=== PATIENT | female | born 1950 | race African-American/Black ===

== ENCOUNTER 2019-09-27 11:54 | Inpatient (IN) ==
[2019-09-27] MEDS ORDERED: DUONEB (A & A) INH ONE (12:12)
[2019-09-27] MEDS: DEMEROL IV ONE ×2 (12:14→13:08)
[2019-09-27] MEDS ORDERED: NS 1,000 ML IV ONE ×3 (12:15→14:37)
--- NOTE | 2019-09-27 13:01 | Diag Imaging Result Doc PS360 ---
EXAM: CHEST-1 VIEW HISTORY: POSSIBLE SEPSIS TECHNIQUE: Lateral chest single view COMPARISON: None. FINDINGS: The lungs are well expanded. No pleural effusions. No other abnormality identified. IMPRESSION: Negative exam. Electronically signed by Franky Yusuf 09/27/2019 12:59 PM
--- NOTE | 2019-09-27 13:03 | Diag Imaging Result Doc PS360 ---
EXAM: FLAT/UPRIGHT ABD/1 VIEW CHEST HISTORY: lower abd pain TECHNIQUE: Flat and upright with chest, four views COMPARISON: 09/14/2016 FINDINGS: The lungs are well expanded. No cardiomegaly. Mild increased interstitial markings in the left base. No free air beneath the diaphragm. No bowel obstruction although there is stool throughout the colon. No organomegaly. Pelvic calcifications within a known large uterine fibroid documented on prior CT. Mild scoliosis. Moderate atherosclerosis. IMPRESSION: Constipation Atelectasis versus a tiny left basilar infiltrate Electronically signed by Franky Yusuf 09/27/2019 1:01 PM
[2019-09-27 13:22] LABS: BASO# 0.03 X1000 (0.0-0.2); BASO% 0.2 % (0.0-0.8); HEMATOCRIT 47.7 % (37.0-47.0); HEMOGLOBIN 14.9 g/dL (12.0-16.0); IMM GRAN# 0.07 X1000 (0.0-0.04); IMM GRAN% 0.4 % (0.0-0.5); LYMPH# 2.25 X1000 (1.2-3.4); LYMPH% 11.4 % (20.5-51.1); MCH 27.5 PG (27-31); MCHC 31.2 g/dL (33-37); MONO% 13.1 % (1.7-9.3); MPV 10.1 FL (7.4-10.4); NEUT# 14.84 X1000 (1.4-6.5); NEUT% 74.9 % (42.2-75.2); PLT 463 X1000 (130-400); RBC 5.42 XMIL (4.2-5.4); RDW 14.9 % (11.5-14.5); WBC 19.79 X1000 (4.8-10.8)
[2019-09-27 13:26] LABS: INR 1.15; PROTIME 14.9 Seconds (11.0-16.0)
[2019-09-27 13:27] LABS: PTT 32.7 Seconds (22.3-41.8)
[2019-09-27 13:45] LABS: ALB/GLOB RATIO 1.3; ALBUMIN 3.6 g/dL (3.5-5.0); CALCIUM 9.2 mg/dL (8.8-10.2); CREATININE 3.5 mg/dL (0.5-0.9); POTASSIUM 5.1 mmol/L (3.5-5.1); TOTAL BILIRUBIN 0.56 mg/dL (0.20-1.00); TOTAL PROTEIN 6.3 g/dL (6.3-8.3)
[2019-09-27] MEDS ORDERED: PHENERGAN IV ONE (13:46)
[2019-09-27] MEDS ORDERED: OFIRMEV 1000 MG/ISOTONIC SOLN 1,000 MG/100 ML BOTTLE IV PRN (13:46)
[2019-09-27] MEDS ORDERED: SODIUM CHLORIDE 0.9% INJ ONE (13:46)
[2019-09-27] MEDS ORDERED: ZOSYN 3.375 GM in NS 50 ML IV ONE (13:57)
--- NOTE | 2019-09-27 15:11 | Diag Imaging Result Doc PS360 ---
EXAM: CT ABDOMEN/PELVIS W/O CONTRAST HISTORY: abdominal pain TECHNIQUE: CT abdomen and pelvis without contrast COMPARISON: None 02/24/2017 FINDINGS: There is a tiny left pleural effusion. Moderate sized hiatal hernia. No calcified gallstones. There are several hepatic cysts. No splenomegaly. No inflammation about the pancreas. Normal adrenal glands. No renal stones or hydronephrosis. Moderate to prominent atherosclerosis. No aortic aneurysm. [id number] amount of abdominal and pelvic ascites. There is a large partially calcified uterine fibroid which was present on the prior exam. This measures approximately 7 x 8 x 9 cm. No bowel obstruction. There are scattered colonic diverticula. There is a fat filled midline abdominal hernia just above the umbilicus. The urinary bladder is not distended. IMPRESSION: 1.Interval development of a small to moderate amount of abdominal ascites 2.Moderate sized hiatal hernia 3.Hepatic cysts 4.Colonic diverticulosis 5.Moderate to prominent atherosclerosis 6.Large calcified uterine fibroid 7.Fat filled anterior abdominal wall hernia just above the umbilicus This exam was performed using automated exposure control, adjustment of mA or kV according to patient size, and/or use of iterative reconstruction technique. Electronically signed by Franky Yusuf 09/27/2019 3:08 PM
--- NOTE | 2019-09-27 15:24 | PROVIDER DOCUMENTATION ---
This chart was entered by Cari Daigle Scribe, acting as scribe for Sharif Ramos DO. HPI-Abdominal Pain/GI Problem - General Stated Complaint: ABD PAIN Time Seen by Provider: 09/27/19 12:04 Source: patient, family (son), EMS ([facility] brought from Walk-in clinic in [place]) Allergies/Adverse Reactions: Patient Allergies Allergy/AdvReac Type Severity Reaction Status Date / Time No Known Allergies Allergy Verified 09/27/19 12:50 Home Medications: Home Medication List Medication Instructions Recorded Confirmed Last Taken Type Amlodipine [Norvasc] 10 mg PO DAILY 11/25/12 09/27/19 09/27/19 History Metformin [Glucophage] 500 mg PO BID 09/11/14 09/27/19 09/27/19 History Albuterol Sulfate Inhaler 2 puff INH [id number] #0 inhaler 09/15/14 09/27/19 Rx [Ventolin Hfa] Lisinopril/Hydrochlorothiazide 1 each PO DAILY 09/14/16 09/27/19 09/27/19 History [Lisinopril-Hctz 20-25 mg Tab] Tiotropium [place] Inhaler 18 mcg INHALATION 09/27/19 09/27/19 History [Spiriva] - History of Present Illness-ABD Nature of Presenting Problems: Patient went to a walk in clinic for lower left abdominal pain. She states she has had constipation and took some laxatives, but continued to have pain. She has just finished antibiotics and steroids for pneumonia, but still has sob. Abdominal Pain Onset Location: reports: LLQ, periumbilical Pain Radiation: reports: no radiation Quality of Pain: reports: aching Severity in ED: reports: mild Onset/Duration: reports: abrupt, 2 days ago Timing: reports: still present, getting worse Activities at Onset: reports: light activity Modifying Factors: improves with: movement (makes pain and SOB worsen). worse with: other medication (laxitives did not work and pt says caused bleeding) Associated Symptoms: reports: constipation (present), diarrhea (1st), shortness of breath. denies: syncope Last BM: 2 days ago Rectal Bleeding: reports: blood mixed with stool Review of Systems - Adult - REVIEW OF SYSTEMS - ADULT Constitutional: reports: no symptoms reported Eyes: reports: no symptoms reported Ears, Nose, Mouth & Throat: reports: no symptoms reported Cardiovascular: denies: chest pain, syncope Respiratory: reports: shortness of breath, wheezing Gastrointestinal: reports: abdominal pain (LLQ), constipation, diarrhea Genitourinary: reports: no symptoms reported Musculoskeletal: reports: no symptoms reported Integumentary: reports: no symptoms reported Neurological: reports: see HPI. denies: dizziness/vertigo, syncope Psychiatric: reports: no symptoms reported Endocrine: reports: no symptoms reported Hematologic/Lymphatic: reports: no symptoms reported Allergic/Immunologic: reports: no symptoms reported All Other Systems: Reviewed and Negative Past History - Adult - PAST MEDICAL HISTORY-ADULT Review of Records: reports: Old Records Reviewed, Nursing Assessment Review, Medications Reviewed, Social history reviewed & non-contributory. Major Childhood Illnesses: reports: denies history Cardiovascular: reports: CHF, HTN Respiratory: reports: COPD Gastrointestinal: reports: denies history Genitourinary: reports: denies history Musculoskeletal: reports: denies history Neurological: reports: denies history, other (Neuropothy) Endocrine/Immune: reports: Diabetes Other Conditions: reports: denies history - PRIOR SURGERIES/PROCEDURES Surgical/Procedure History: reports: appendectomy, BTL, other (cyst removal ) - IMMUNIZATION STATUS Childhood Immunizations: See Nurse Assessment Flu Vaccine: See Nurse Assessment - FAMILY HISTORY Family History: reviewed, not pertinent - SOCIAL HISTORY Smoking: cigarettes, less than 1 pack/day Provider spent 3-5 mins advising pt. on dangers of tobacco.: Discussed manners to quit use, and f/u contacts for add'l counseling. Substance Use: denies Living Situation: alone Physical Exam-General - PHYSICAL EXAM-ADULT Initial Vital Signs Reviewed: Yes (HR 96, Resp 26, O2 94 on oxygen) - CONSTITUTIONAL General Appearance: alert, mild distress, obese - EYES Eyes: PERRL/EOMI - HEAD, EARS, NOSE, MOUTH & THROAT HENMT: moist mucous membranes - NECK Neck: full range of motion - RESPIRATORY Respiratory: wheezing, increased rate - CARDIOVASCULAR Cardiovascular: no edema, no JVD, tachycardia - GASTROINTESTINAL (ABDOMEN) Abdominal Exam: tenderness, other (lapoma) - MUSCULOSKELETAL Back Exam: no CVA tenderness, no vertebral tenderness Extremity: non-tender, normal gait - SKIN Integumentary: normal color, normal turgor, warm/dry - PSYCHIATRIC Psych/Mental Status: normal mood/affect, normal thought content, normal thought process, oriented x 3 Progress - PLAN OF CARE/RESULTS Result Diagrams: 09/27/19 13:00 09/27/19 13:00 - XRAY 1 XRAY Study: Chest Impression: See EMR Report (EXAM: CHEST-1 VIEW HISTORY: POSSIBLE SEPSIS TECHNIQUE: Lateral chest single view COMPARISON: None. FINDINGS: The lungs are well expanded. No pleural effusions. No other abnormality identified. IMPRESSION: Negative exam. Electronically signed by Franky Yusuf 12:59 PM 09/27/19 1259 Interpreting Physician: Franky Yusuf MD Dictated Date/Time: 09/27/19 1258 cc: Sharif Ramos DO; None,PCP) 2 XRAY Study: Abdomen Impression: See EMR Report (EXAM: FLAT/UPRIGHT ABD/1 VIEW CHEST HISTORY: lower abd pain TECHNIQUE: Flat and upright with chest, four views COMPARISON: 09/14/2016 FINDINGS: The lungs are well expanded. No cardiomegaly. Mild increased interstitial markings in the left base. No free air beneath the diaphragm. No bowel obstruction although there is stool throughout the colon. No organomegaly. Pelvic calcifications within a known large uterine fibroid docu mented on prior CT. Mild scoliosis. Moderate atherosclerosis. IMPRESSION: Constipation Atelectasis versus a tiny left basilar infiltrate Electronically signed by Franky Yusuf 09/27/2019 1:01 PM 09/27/19 1301 Interpreting Physician: Franky Yusuf MD Dictated Date/Time: 09/27/19 1259 cc: Sharif Ramos DO; None,PCP) - CONSULTS/PCP/HOSPITALIST Notification #1 *Consult/PCP/Hospitalist*: [facility] Time Discussed: 15:21 (admit to Dr Gregory) Consult Disposition: Will see in ED Departure - Departure Date of Disposition Decision: 09/27/19 Time of Disposition Decision: 15:23 DIAGNOSIS: COPD exacerbation, Sepsis associated hypotension Acute renal failure Qualifiers: Acute renal failure type: unspecified Qualified Code(s): N17.9 - Acute kidney failure, unspecified Disposition: ADMITTED INPATIENT 09 Certified Medical Emergency: Emergent Condition: Fair Referrals and Follow-Ups: None,PCP [Primary Care Provider] - - Critical Care Note This patient required my direct & personal management of CC.: Yes Total Time (mins): 72 Critical Care Statement: This patient required my direct personal management to treat or rule out processes, the absence of which, could potentiallly result in sudden, clinically significant life or limb threatening deterioration. Attestation - Physician/ BRITNEY Attestation Patient care was provided by Advanced Practice Provider:: No The physician spent face to face time with patient:: Yes Advanced Practice Provider documentation review:: Supervising physician onsite and consulted in the evaluation and care of this patient. The physician did have a face to face encounter with the patient. This chart was documented by the indicated scribe, (Cari Daigle, [place]) and accurately reflects the services I performed and decisions made by me, Sharif Ramos DO, as attested by the provider's signature.
[2019-09-27 16:16] LABS: ALLEN TEST NO; BE -5.2 mmoll (-3.0-3.0); BLOOD TYPE ARTERIAL; HCO3-(ACT) 20.8 mmoll (20.0-26.0); METHB 0.9 % (0.0-1.5); O2(CT) 17.8 mL/dL (15.0-23.0); O2HB 93.6 % (95.0-99.0); PCO2(98.6) 40 mmHg (35-45); PO2(98.6) 83 mmHg (60-100); SAMPLE BLOOD; SAO2 97.9 % (95.0-100.0); THB 13.5 g/dL (11.5-17.4); pH(98.6) 7.32 (7.35-7.45)
[2019-09-27 16:16] LABS: AMYLASE 15 U/L (20-200); LIPASE 4 U/L (13-60)
[2019-09-27 16:17] LABS: MODALITY CANNULA
[2019-09-27] MEDS ORDERED: NS 1,000 ML IV SCH (17:40)
[2019-09-27] MEDS ORDERED: TYLENOL PO PRN (17:40)
[2019-09-27] MEDS: DUONEB (A & A) INH SCH ×3 (18:00→23:03)
[2019-09-27] MEDS: ZYVOX 600 MG/D5W 600 MG/300 ML IVPB IV SCH (18:01)
[2019-09-27 18:24] LABS: URINE SOURCE CLEAN CATCH
[2019-09-27 18:35] LABS: BILIRUBIN URINE MODERATE (NEGATIVE); COLOR YELLOW; GLUCOSE URINE NEGATIVE (NEGATIVE); TURBIDITY URINE HAZY (CLEAR); UR EPITHELIAL CELLS >10 /HPF (<10); URINE BACTERIA 2+ /HPF; URINE WBC TNTC /HPF (<10)
[2019-09-27 18:36] LABS: BLOOD URINE TRACE (NEGATIVE); KETONE URINE NEGATIVE (NEGATIVE); LEUKOCYTES URINE SMALL (NEGATIVE); NITRITE URINE NEGATIVE (NEGATIVE); PH URINE 5.5; PROTEIN URINE 100 mg/dL (NEGATIVE); UROBILINOGEN URINE NORMAL (NORMAL)
[2019-09-27 18:38] LABS: UR CREAT RANDOM 284.3 mg/dL (11-20)
--- NOTE | 2019-09-27 19:35 | HISTORY AND PHYSICAL ---
PRIMARY CARE PHYSICIAN: Dr. Hernandez. CHIEF COMPLAINT: Left lower quadrant abdominal pain with constipation over the past 3 days. Also noted shortness of breath, wheezing, and weakness. HISTORY OF PRESENTING ILLNESS: This is a 68-year-old female who presents to [facility] via EMS after she was seen in a walk-in clinic for left lower quadrant abdominal pain. States that she had been having some constipation and took some laxatives then she stopped taking the laxatives and began again having constipation with no bowel movement in the last 3 days. States she just finished antibiotics and steroids for a pneumonia, still has a nonproductive cough, shortness of breath and wheezing. Her workup showed a blood pressure on arrival of 95/50 that dropped about an hour after arriving to 79/44. She received 3 L of normal saline bolus and her blood pressure is now up to 117/57. Her laboratory data showed a white blood cell count of 19.79, BUN was 42 with a creatinine of 3.5. Her last documented creatinine that we have on file is from 2013 in September and it was 0.8. Her plasma lactate is 3.1. We did an abdomen x-ray that showed constipation and atelectasis versus a tiny left basilar infiltrate. We did a chest x-ray that showed a negative exam. We did an abdomen and pelvic CT that showed interval development of small to moderate amount of abdominal ascites, a moderate-sized hiatal hernia, a fat filled anterior abdominal wall hernia just above the umbilicus and a large calcified uterine fibroid. So she will be admitted to our PVC unit for further evaluation and treatment. PAST MEDICAL HISTORY: CHF, hypertension, COPD, hepatitis C, diabetes type 2 and neuropathy. PAST SURGICAL HISTORY: Of an appendectomy, bilateral tubal ligation. FAMILY HISTORY: Reviewed and noncontributory. SOCIAL HISTORY: She currently lives with family, smokes a half a pack of cigarettes a day and has done so for approximately 40+ years. Denies any alcohol or illicit drug use. ALLERGIES: She has no known drug allergies. HOME MEDICATIONS: We will obtain a current list, reconcile, review and restart as appropriate. We will hold any of her antihypertensive and diuretics at this time. LABORATORY DATA: Showed a white blood cell count of 19.79, hemoglobin 14.9, hematocrit 47.7, platelets 463,000, PT and INR of 14.9 and 1.15. Sodium of 138, potassium 5.1, chloride 95, CO2 20, BUN of 42, creatinine 3.5, glucose 136. Cardiac enzyme was negative. Plasma lactate of 3.1. Abdomen x-ray showed constipation and atelectasis versus a tiny left basilar infiltrate. Chest x- ray showed a negative exam and the abdomen and pelvic CT showed interval development of a small to moderate sized abdominal ascites, moderate size hiatal hernia, hepatic cyst, colonic diverticulosis, moderate to prominent atherosclerosis, large calcified uterine fibroid and a fat filled anterior abdominal wall hernia just above the umbilicus. REVIEW OF SYSTEMS: She denied any fever, chills, blurred vision, dizziness. She has had shortness of breath, wheezing, nonproductive cough, left lower quadrant abdominal pain, constipation. Denied any diarrhea, burning or hurting with urination. She did report that she had some rectal bleeding several days ago that lasted 1 day and then resolved. No further bleeding noted at this time. PHYSICAL EXAMINATION: On arrival she had a temperature of 97.9 degrees, pulse 97, respirations 32, blood pressure 95/50, saturating 93% on room air. Approximately an hour later her blood pressure did drop to 79/44. After fluid resuscitation she is up to 117/57 saturating 94% on 2 L via nasal cannula. GENERAL: This is a 68-year-old female who is sitting in the bed and answers questions appropriately. HEENT: Normocephalic, atraumatic. Normal ENT inspection. Oropharynx and nares are clear. Pupils are equal, round, and reactive to light and accommodation. Extraocular movements are intact. NECK: Normal inspection, normal range of motion. LUNGS: With wheezing throughout entire posterior lung marques and tachypneic. Equal lung expansion, chest wall movement noted. O2 via nasal cannula currently in use. HEART: Rate regular rate and rhythm. No murmurs, rubs, or gallops. ABDOMEN: Soft. There is tenderness to palpation throughout entire abdominal quadrants. It is worse on the left upper and lower. Bowel sounds are present x4 quadrants. MUSCULOSKELETAL: She had 5/5 strength x4 extremities. NEUROLOGICAL: Cranial nerves 2-12 appear grossly intact. ASSESSMENT: 1. Sepsis. 2. Left lower lobe pneumonia. 3. Leukocytosis. 4. Hypotension. 5. Acute kidney injury. 6. Constipation. 7. Tobacco abuse. OUR PLAN: She will be admitted to the PVC unit placed on telemetry, placed on a diabetic diet. She will be n.p.o. after midnight for a complete abdominal ultrasound in the a.m., will place her on Zyvox 600 mg IV q.12, Zosyn 2.25 g IV q.6, lactulose 30 mL b.i.d., placed on telemetry. Will place SCDs for DVT prophylaxis. Will give her normal saline at 50 mL an hour and go gently since she has had 3 L of fluid in the emergency room and has a history of congestive heart failure. We will recheck a CBC, BMP in the a.m. We will check a hepatitis profile, do serial lactates, check a urine sodium, urine nitrogen, urine creatinine and eos urine smear. We are going to do a abdominal paracentesis in the a.m. Further orders after seen by attending. Dictated by CHINA Parish for Mark Barnes MD cc: CHINA Parish MD Dr. Powell
[2019-09-27] MEDS: ZOSYN 2.25 GM in NS 50 ML IV SCH ×2 (20:34→21:11)
[2019-09-27] MEDS: ZOFRAN IV PRN (20:35)
[2019-09-27] MEDS: LACTULOSE PO SCH (20:35)
[2019-09-27] MEDS: VENTOLIN HFA INH SCH (21:18)
--- NOTE | 2019-09-28 02:03 | HISTORY AND PHYSICAL ---
ADDENDUM: I have seen and examined Ms. Vegas in the emergency room today. Ms. Vegas presented to the ER today because of abdominal pain which has been going on for the past 3 days. Ms. Vegas has recently been treated for pneumonia about a week ago with p.o. antibiotics, namely doxycycline, documented on her chart. Ms. Vegas is also hypertensive and takes lisinopril/hydrochlorothiazide. She is also on metformin for glucose control. Upon presentation she was found to be remarkably hypotensive, with a blood pressure of 95/50. It went down to about 79/44 at one point. She has been given a total of 3 L of IV fluids. Blood pressures have improved. PHYSICAL EXAMINATION: HEENT: On current physical exam, her mucous membranes look slightly dry. NECK: Supple. Questionable JVD. CHEST: Air entry is bilaterally reduced. There is some wheezing and crackles in the left posterior lung field. ABDOMEN: Soft, distended. There is mild tenderness on superficial palpation, with questionable peritoneal reaction. There is a supraumbilical incisional hernia which is not tender. Bowel sounds are present but remarkably hypoactive. EXTREMITIES: No pedal edema. CENTRAL NERVOUS SYSTEM: The patient is awake, alert and oriented. LABORATORY DATA: Also reviewed. Her WBC is 19.73. Her bicarbonate is 20 with a gap of 23, BUN is 42, creatinine is 3.5. The patient's plasma lactate is 3.1. DIAGNOSTIC DATA: A CAT scan of the abdomen and pelvis shows interval development of small to moderate amount of abdominal ascites; moderate size hiatal hernia; colonic diverticulosis; moderate to prominent atherosclerosis; there is a fat-filled abdominal wall hernia just above the umbilicus. ASSESSMENT AND PLAN: 1. Abdominal pain with mild peritoneal reaction. CAT scan shows ascites. This is concerning for spontaneous bacterial peritonitis. The patient has been started on antibiotics. 2. Hypotension, presumably septic shock. The patient was resuscitated with 3 L. Blood pressure has improved. She has not needed any pressors; however, I think other factors could be contributing to her low blood pressure on admission, including the fact that she has been on blood pressure medications as well as diuretics, all of which could potentially drop her blood pressure in the context of an infection. 3. Acute kidney injury. We think this is multifactorial. The patient was on BARB inhibitors, diuretics. She looks quite dehydrated and she is septic. We are going to continue with fluid resuscitation, recheck on her labs tomorrow morning. We will get urinalysis as well and go from there. 4. We will get a Quevedo catheter inserted for straight output documentation. 5. Recently treated for pneumonia. The patient continues to have some wheezing. CAT scan shows left lower lobe infiltrate/fluid. We are still going to put her on antibiotics. 6. History of chronic obstructive pulmonary disease, questionably in mild exacerbation. 7. Lactic acidosis, most likely from hypoperfusion. We will continue with fluid resuscitation. 8. Remote history of hepatitis C. We are going to repeat this. We will also get an ultrasound of the abdomen and the kidneys. First of all, we are going to get an ultrasound of the abdomen to check if the patient is cirrhotic from imaging standpoint. We will also get a renal ultrasound for her kidney failure. So for now, Ms. Vegas is going to be on intravenous Zosyn, renally dosed, and Zyvox for possible pneumonia. We are going to continue with gentle intravenous fluids, check on her urine analysis, get a Quevedo catheter in place, and order diagnostic paracentesis for tomorrow morning. Depending on the clinical course, we will get other subspecialties to evaluate Ms. Vegas. Ms. Vegas's blood pressure medications and metformin will be withheld for now. We will get Nephrology to see Ms. Vegas because of the fact that she has acute renal failure and she also was on metformin. Please refer to the details of the history and physical that has been dictated by the nurse practitioner in the chart. Critical time spent is 1 hour. cc: Mark Barnes MD
[2019-09-28] MEDS: DUONEB (A & A) INH SCH ×6 (03:29→23:14)
[2019-09-28] MEDS: VENTOLIN HFA INH SCH ×3 (03:29→23:14)
[2019-09-28] MEDS: ZOSYN 2.25 GM in NS 50 ML IV SCH ×4 (04:58→21:25)
[2019-09-28] MEDS: ZYVOX 600 MG/D5W 600 MG/300 ML IVPB IV SCH ×2 (05:39→17:11)
[2019-09-28 06:22] LABS: BASO# 0.02 X1000 (0.0-0.2); BASO% 0.1 % (0.0-0.8); EOS# 0.01 X1000 (0.0-0.7); EOS% 0.1 % (0.0-10.0); HEMATOCRIT 43.1 % (37.0-47.0); HEMOGLOBIN 13.5 g/dL (12.0-16.0); IMM GRAN# 0.03 X1000 (0.0-0.04); IMM GRAN% 0.2 % (0.0-0.5); LYMPH# 1.03 X1000 (1.2-3.4); MCH 28.2 PG (27-31); MCHC 31.3 g/dL (33-37); MONO# 2.21 X1000 (0.11-0.59); MPV 9.8 FL (7.4-10.4); NEUT# 11.41 X1000 (1.4-6.5); NEUT% 77.6 % (42.2-75.2); PLT 363 X1000 (130-400); RBC 4.79 XMIL (4.2-5.4); RDW 15.1 % (11.5-14.5); WBC 14.71 X1000 (4.8-10.8)
[2019-09-28 06:59] LABS: CALCIUM 8.9 mg/dL (8.8-10.2); POTASSIUM 4.5 mmol/L (3.5-5.1)
[2019-09-28] MEDS: NS 1,000 ML IV SCH ×2 (08:01→17:11)
[2019-09-28] MEDS: LACTULOSE PO SCH ×2 (08:02→21:31)
--- NOTE | 2019-09-28 10:44 | Diag Imaging Result Doc PS360 ---
EXAM: US ABDOMEN-COMPLETE INDICATION: Ascites COMPARISON: None. FINDINGS: There are multiple shadowing stones in the gallbladder lumen. No gallbladder wall thickening is identified. The common bile duct is normal in diameter. Sonographic Spears's sign was reported to be negative. There is a moderate to large amount of ascites. There is a 3.6 cm cyst in the right hepatic lobe with a thin internal septation. The liver echotexture is unremarkable, otherwise. No solid hepatic masses are identified. Portal venous flow is hepatopetal. The pancreas is obscured due to body habitus and the ascites. The aorta and IVC are also obscured. The spleen is unremarkable. The kidneys are grossly unremarkable. IMPRESSION: 1.Ascites. 2.Cholelithiasis. 3.Right hepatic lobe cyst with a thin internal septation. Electronically signed by Christopher Ocampo 09/28/2019 10:41 AM
--- NOTE | 2019-09-28 15:12 | NEPHROLOGY CONSULTATION ---
DATE: 09/28/2019 REASON FOR ADMISSION: Abdominal pain, constipation, hypotension, sepsis. REASON FOR CONSULTATION: Acute kidney injury. CONSULTING PHYSICIAN: Dr. Barnes. HISTORY OF PRESENT ILLNESS: This is a 68-year-old female with a past medical history of diabetes and hypertension, with no known kidney disease, who came into the emergency room on day of admission secondary to abdominal pain, constipation, hypotension, and an elevated white count. She normally sees [facility] for her routine office visit. She went to see them because of her current complaints, and they noted that she has significant hypotension, and was brought to the emergency room for further workup. In the ER, she was found to have a blood pressure that initially was 90s/50s. It dropped to 70s/40. She was given several liters of normal saline bolus, and that brought her pressures up to about 117. She had an elevated white count of 19. Her imaging indicated atelectasis versus left basilar infiltrate, constipation. She was admitted to the hospital for further workup and treatment. Her creatinine over the course of the hospitalization has risen. Today, it is at 4.0. Her urine output has been almost anuric. We have been asked to see her for her acute kidney injury. The last labs that we have are in 2013 with a creatinine of about 1. Again, the patient states that she has labs drawn every 3 months, and has never been told at [facility] that she has any renal disease. PAST MEDICAL HISTORY: CHF, COPD, hypertension, history of hepatitis C, diabetes type 2, neuropathy. PAST SURGICAL HISTORY: Appendectomy, tubal ligation. ALLERGIES: None. HOME MEDICATIONS: Amlodipine, Glucophage, albuterol, lisinopril, hydrochlorothiazide, and Spiriva. FAMILY HISTORY: Noncontributory. SOCIAL HISTORY: She continues to smoke half a pack a day. Denies any ETOH or illicit drug use. She lives with her family. REVIEW OF SYSTEMS: She has shortness of breath today while she is sitting up on the side of the bed. She continues with nausea and vomiting. She continues with decreased urine output. PHYSICAL EXAMINATION: Vital Signs: Temperature 97.8 degrees, pulse 82, respiratory rate 16, blood pressure 100/56. Intake 1.7 L. Output not measured. General: Chronically ill-appearing, elderly female, sitting up on the side of the bed. She is awake and alert. She does not appear in distress, although she is disheveled. HEENT: Normocephalic, atraumatic. ETHEL. Conjunctivae are pale. Oral mucosa moist. Neck: Supple without JVD. Cardiovascular: Regular. No murmur. Pulmonary: Bilateral expiratory wheezes noted. Shortness of breath with conversation. She is on O2 supplementation via nasal cannula. She has equal excursion. Abdomen: Diffusely tender. Positive bowel sounds. : She is voiding. Extremities: Right lower extremity with trace to 1+ edema. The patient indicates it is chronic. Left lower extremity with no edema. Integumentary: Skin warm and dry. Neurologic: Nonfocal. LABORATORY DATA: WBC of 14.7, hemoglobin 13.5. Sodium 141, potassium 4.5, CO2 of 20, creatinine 4.0. ASSESSMENT AND PLAN: 1. Acute kidney injury, likely acute tubular necrosis. We will order imaging today to evaluate for any obstruction. The patient states that she has had pneumonia recently. She has been on multiple antibiotics. The patient currently has had several episodes of hypotension, along with sepsis. The patient does not have any indications for intervention, such as dialysis at this time, although I did speak to her that this does not look to be intravascular volume depletion, and that if her renal function continued to worsen, we may need to intervene with temporary dialysis as a bridge to recovery. The patient is in agreement. 2. Electrolytes, acid-base balance, and anemia. These are stable. 3. Fluid volume. Minimal urine. Again, obtain abdominal imaging. 4. Hypotension, currently acceptable, but marginal. 5. Sepsis. Medication review: She is on Zyvox, Pipracil, and tazobactam at appropriate dosing. 6. Fluid volumes. Although she is in positive territory, the patient states that she is vomiting anything that she eats up, and therefore is getting nothing down otherwise. Will continue at current rate, and monitor. She may need to the lower that rate if we have any issues with her respiratory status. Thus far, although she has shortness of breath, she is at her baseline. Thank you for the consult. Dictated by CHINA Lua for Manny Vazquez MD cc: Manny Vazquez MD [facility]
--- NOTE | 2019-09-28 15:52 | PROGRESS NOTE ---
DATE: 09/28/2019 INTERVAL HISTORY: The patient still complaining of some abdominal pain which is fairly diffuse, although this is improved from previous. Still reports feeling bloated and "tight." Blood pressure remains on the low side of normal but essentially stable. No acute events overnight. Continues to endorse dyspnea with exertion but states this has been largely stable over the last several months. She does say it is a little worse when she is sick. REVIEW OF SYSTEMS: Twelve point review of systems negative except as per interval history. LABS: WBC 14.7, hemoglobin 13.5, hematocrit 43.1, platelets 363,000. Sodium 141, potassium 4.5, BUN 46, creatinine 4, glucose 133. IMAGING: Abdominal ultrasound with ascites, right hepatic lobe cyst with thin internal septation but no solid hepatic masses and normal liver echotexture. VITALS: T-max 97.9 degrees, pulse 85, respiration 24, blood pressure 98/62, O2 saturation 94% on 4 L by nasal cannula. PHYSICAL EXAMINATION: General: No acute distress. Vitals as above. HEENT: Normocephalic, atraumatic. Still slightly dry mucous membranes. Cardiovascular: Regular rate and rhythm. No murmurs noted. Pulmonary: Mildly decreased breath sounds throughout, faint end-expiratory wheeze otherwise clear to auscultation. Abdomen: Soft, mildly distended. Mild tenderness without clear rebound or guarding. Tenderness is fairly diffuse. Bowel sounds present but slightly decreased. Extremities: Peripheral pulses intact. No clubbing or cyanosis. Neurologic: Cranial nerves grossly intact. No clear focal deficits. Psychiatric: Normal mood and affect. Awake, alert, oriented x3. ASSESSMENT/PLAN: 1. Possible spontaneous bacterial peritonitis, sepsis. Patient with hypotension and leukocytosis on admission. Blood pressure slightly improved. Never required pressors. Diagnostic paracentesis pending. Origin of ascites somewhat uncertain as patient has no history of cirrhosis, liver was fairly normal on ultrasound. CT abdomen, pelvis largely unremarkable otherwise as far as acute findings. Will try to get fluid studies after paracentesis and see if that is helpful. Continue antibiotics with Zosyn pending results of fluid analysis. 2. Chronic obstructive pulmonary disease with mild exacerbation. Patient does have some wheezing but fair air entry. Will continue nebs but no strong need for further steroids at this point. Continue to monitor respiratory status. 3. Clarification of history of hepatitis. The patient initially reported history of hepatitis C. On further clarification of the patient sounds like she had non-viral hepatitis related to complications from surgery in the past. This resolved spontaneously over the course of a few days. Denies any history of viral hepatitis. Confirmatory hepatitis panel pending. LFTs and bilirubin and alkaline phosphatase were normal on admission. Liver ultrasound essentially unremarkable aside from a cyst. 4. Constipation. Continue lactulose and monitor.
[2019-09-28] MEDS ORDERED: SODIUM CHLORIDE 0.9% INJ SCH (20:30)
[2019-09-28] MEDS: PROTONIX IV SCH (21:25)
[2019-09-28] MEDS: ZOFRAN IV PRN (22:15)
[2019-09-29] MEDS: ZOFRAN IV PRN (02:36)
[2019-09-29] MEDS: DUONEB (A & A) INH SCH ×6 (03:11→22:55)
[2019-09-29] MEDS: VENTOLIN HFA INH SCH ×4 (03:12→21:51)
[2019-09-29] MEDS: ZOSYN 2.25 GM in NS 50 ML IV SCH ×5 (04:45→23:25)
[2019-09-29] MEDS: NS 1,000 ML IV SCH ×2 (04:46→09:58)
[2019-09-29] MEDS: ZYVOX 600 MG/D5W 600 MG/300 ML IVPB IV SCH ×2 (05:43→17:50)
[2019-09-29 06:16] LABS: HEMATOCRIT 41.9 % (37.0-47.0); MCH 27.7 PG (27-31); MCV 89.3 FL (81-99); MPV 9.8 FL (7.4-10.4); RBC 4.69 XMIL (4.2-5.4); WBC 14.46 X1000 (4.8-10.8)
[2019-09-29 06:53] LABS: CALCIUM 9.1 mg/dL (8.8-10.2); CREATININE 4.2 mg/dL (0.5-0.9); PHOSPHORUS 5.1 mg/dL (2.7-4.5); POTASSIUM 4.1 mmol/L (3.5-5.1)
--- NOTE | 2019-09-29 07:49 | Diag Imaging Result Doc PS360 ---
CHEST-PORTABLE - 09/29/2019 INDICATION: wheezing, recent pneumonia COMPARISON: 09/27/2019 FINDINGS: Lung volumes are much lower. There was increasing nonspecific infiltrate or atelectasis at the left lung base. Heart size remains normal. IMPRESSION: Nonspecific findings. Electronically signed by Foreign Taylor 09/29/2019 7:47 AM
[2019-09-29] MEDS: PROTONIX IV SCH ×2 (07:52→20:11)
[2019-09-29] MEDS: LACTULOSE PO SCH (09:12)
[2019-09-29] MEDS ORDERED: GOLYTELY PO ONE (10:34)
[2019-09-29] MEDS: SOLU-MEDROL IV SCH ×2 (10:45→17:50)
--- NOTE | 2019-09-29 12:54 | GASTROENTEROLOGY CONSULTATION ---
DATE: 09/29/2019 REASON FOR CONSULT: Upper GI bleed. HISTORY OF PRESENT ILLNESS: Ms. Vegas is a 68-year-old female with a past medical history of congestive heart failure, hypertension, COPD, hepatitis C, diabetes, and neuropathy, who presented to the hospital on Sunday with complaints of lower abdominal pain and constipation. The patient mentioned that she does have occasional constipation and she says that when she eats cheese she always has constipation. Patient had gone to the Urgent Care on Sunday and they told her that her blood pressure was low and she needed to come to the hospital. Prior to that she had also been to the urgent care once and they had given antibiotics and steroids for her pneumonia. The patient does have a nonproductive cough, shortness of breath and wheezing, but mainly her complaint is that she feels like she is too bloated. She is not able to lie down comfortably or sit down comfortably and feels like she is short of breath and has abdomen soreness in the left lower quadrant. She mentioned that she has not had a bowel movement since Sunday. The patient does have an umbilical hernia which can be felt in the mid abdominal area. She has complained that she has been having nausea and vomiting and that her vomit is looking like coffee- grounds emesis, it was very minimal. On admission her abdominal x-ray showed constipation, atelectasis versus tiny left basilar infiltrates. Her chest x-ray on 09/27 showed negative exam. Abdomen and pelvis CT on 09/27 showed that she had internal development of small to moderate amount of abdominal ascites, moderate size hiatal hernia, hepatic cyst, colonic diverticulosis, moderate to prominent arthrosclerosis, large calcified uterine fibroid and fat filled anterior abdominal wall hernia just above the umbilicus. Abdominal ultrasound on 09/28 showed ascites ,cholelithiasis, right hepatic lobe cyst with tiny internal septation. The patient's x-ray today has shown nonspecific findings. PAST MEDICAL HISTORY: Congestive heart failure, hypertension, COPD, hepatitis C, which she had in the 70s, diabetes type 2, neuropathy, and umbilical hernia. PAST SURGICAL HISTORY: Appendectomy and bilateral tubal ligation. FAMILY HISTORY: No significant GI malignancies. SOCIAL HISTORY: The patient is currently living alone. She smokes half a pack of cigarettes a day. She has denied any alcohol or illicit tobacco use. ALLERGIES: No known drug allergies. MEDICATIONS: Home medications are amlodipine 10 mg daily, metformin 500 mg twice a day, albuterol sulfate 2 puffs inhalation 4 times a day, lisinopril/hydrochlorothiazide 20/25 mg 1 tablet daily, and Spiriva 18 mcg inhalation. REVIEW OF SYSTEMS: As per HPI. Otherwise, 12 point review of system is negative. PHYSICAL EXAMINATION: Vital Signs: Temperature 96.6 degrees, pulse 92, respirations 29, blood pressure 98/58, oxygen saturation 93%. She is on 5 L nasal cannula. The patient's weight is 227 pounds. BMI is 38.0 kg/m2. General: She is alert, oriented x3, in no acute distress. Answering questions appropriately. HEENT: Pale conjunctivae, no icterus. PERRL. Neck: Supple. Lungs: Wheezing heard in the anterior and posterior marques. Cardiovascular: Patient is tachycardic. Abdomen: Soft, distended, umbilical hernia right about the umbilicus in the mid abdomen. Active bowel sounds heard in all 4 quadrants. Extremities: No clubbing. No cyanosis. Generalized edema in the lower extremities. Pedal pulses 2+ present bilaterally. Neurologic: The patient is alert, orient x3. Nonfocal. Cranial nerves 2-12 grossly intact. LABORATORY DATA: WBC 14.46, RBC 4.69, hemoglobin is 13.0, hematocrit is 41.9, platelet count is 409,000. Sodium 144, potassium 4.1, chloride 103, carbon dioxide 21, anion gap 20, BUN 49, creatinine 4.2, glucose 108, calcium 9.1, phosphorus is 5.1, albumin is 3.0. The patient's urinalysis on 09/27 had shown that she has a protein of 100, moderate bilirubin, small amounts of leukocytes. Her chest x-ray today showed no specific nonspecific findings. Abdominal ultrasound on 09/28 showed ascites, cholelithiasis, right hepatic lobe cyst was seen internal septation. IMPRESSION: 1. Constipation. 2. Gastrointestinal bleed. 3. Leukocytosis. 4. Left lower lobe pneumonia. 5. Hypertension. 6. Acute kidney injury. 7. Tobacco abuse. 8. Diabetes type 2. 9. Chronic obstructive pulmonary disease. 10. History of ?hepatitis C. 11. Abdominal wall hernia. 12. Obesity BMI 38.0 kg/m2. PLAN: Ms. Vegas is a 68-year-old female with a history of COPD, hypertension, diabetes and congestive heart failure, presented to the hospital on Sunday with complaints of constipation and coffee-grounds emesis. GI has been consulted for GI bleed and constipation. The patient is currently receiving antibiotic Zyvox and Zosyn. She is also on GI prophylaxis, Protonix 40 mg IV twice a day. Continue to watch the blood counts. The patient is on normal saline 75 mL per hour. We have started her on GoLYTELY for constipation and soap suds enema. We will continue monitor the patient and follow the plan of care per PCP. If patient's constipation is not resolved, we will plan to do a colonoscopy. This plan was discussed with Dr. Quinn. Thank you for your consult. Please call us for any further questions or concerns. Dictated by CHINA Rodriguez for Lane Quinn MD cc: Lane Quinn MD I have seen and examined the patient myself and I agree with the above plan of care. Discussed the above with the patient and all questions were answered. Please call us with any further questions. SIL
[2019-09-29 14:09] LABS: HEMATOCRIT 42.2 % (37.0-47.0); HEMOGLOBIN 13.2 g/dL (12.0-16.0)
--- NOTE | 2019-09-29 14:48 | Diag Imaging Result Doc PS360 ---
EXAM: LUNG SCAN / VQ - 09/29/2019 HISTORY: hypoxia, tachypnea, dyspnea. xray unremarkable TECHNIQUE: Lung ventilation/perfusion scan. Ventilation images performed using 33.9 Tc 99m DTPA aerosol inhaled. Perfusion images performed using 5.4 mCi technetium 99m MAA administered intravenously. Ventilation perfusion images are obtained in multiple projections over the lungs. COMPARISON: Exam is correlated with the 09/29/2019 portable chest radiograph FINDINGS: There is matching decreased ventilation and perfusion at the left base, most prominent on the ventilation images. This is compatible with the infiltrate or atelectasis which was seen on the recent chest radiograph. There is no ventilation/perfusion mismatch (area which is ventilated but not perfused) identified. IMPRESSION: Low probability for pulmonary embolism. Electronically signed by Hayder Conde 09/29/2019 2:46 PM
--- NOTE | 2019-09-29 16:10 | Diag Imaging Result Doc PS360 ---
EXAM: US ABD PARACENTESIS W S/I HISTORY: new ascites TECHNIQUE: Ultrasound-guided paracentesis COMPARISON: None. FINDINGS: Prior to the procedure I discussed the risk and benefits with the patient. Primary risks include bleeding, infection, bowel injury, and liver injury. Questions were answered. Consent was given. The permit was signed. Ultrasound was used to localize the largest fluid collection in the right abdomen. This area was cleaned and draped in the normal fashion. Lidocaine was used as a local anesthetic. Needle and catheter were advanced into the fluid collection on the first attempt without difficulty. The needle was withdrawn. The catheter was hooked to suction. Approximately 4.1 L were withdrawn without difficulty. The catheter was then withdrawn. No immediate postprocedural complications. IMPRESSION: Successful ultrasound-guided paracentesis. Fluid sent to laboratory for analysis. Electronically signed by Franky Yusuf 09/29/2019 4:08 PM
[2019-09-29] MEDS ORDERED: FLEET MINERAL OIL ENEMA PR ONE (16:30)
[2019-09-29 17:03] LABS: HEPATITIS PROFILE ACUTE SEE COMMENTS
--- NOTE | 2019-09-29 17:20 | PROGRESS NOTE ---
DATE: 09/29/2019 INTERVAL HISTORY: Patient still with some dyspnea with fairly minimal exertion. Slightly increased work of breathing and respiratory rate. She does not really perceive any worsening in her respiratory status and states this is what it is always like when she is sick, but she appears worse to me. Patient with coffee-grounds emesis this morning which is Hemoccult positive. No other acute events. The patient denies abdominal pain. Nausea improved. REVIEW OF SYSTEMS: Twelve point review of systems negative except as per interval history. LABS: WBC 14.46, initial hemoglobin 13, repeat 13.2, hematocrit 41.9, platelets 409,000. Sodium 144, potassium 4.1, BUN 49, creatinine 4.2, glucose 108. IMAGING: V/Q scan, low probability for PE. Chest x-ray with low volumes and possible slightly increased atelectasis at left base. Ultrasound-guided paracentesis with 4.1 L removed. VITAL SIGNS: T-max 98.4 degrees, pulse 98, respirations 22 to 31, blood pressure 96/68, O2 saturation 90% on 4 L by nasal cannula next. PHYSICAL EXAMINATION: General: No acute distress. Vital signs: As above. HEENT: Normocephalic, atraumatic. Moist mucous membranes. Cardiovascular: Regular rate and rhythm. No murmurs noted. Pulmonary: Mildly decreased breath sounds throughout. Slightly worsened expiratory wheeze. Abdomen: Soft. Minimal tenderness without rebound or guarding. This is improved from previous. Bowel sounds present. Stable hernia noted. Extremities: Peripheral pulses intact. No clubbing or cyanosis. Patient with trace to 1+ lower extremity pitting edema bilaterally. Neurologic: Cranial nerves grossly intact. No clear focal deficits. Psychiatric: Normal mood and affect. Awake, alert, oriented x3. ASSESSMENT AND PLAN: 1. Possible spontaneous bacterial peritonitis, sepsis. Patient with hypertension, leukocytosis on admission. Blood pressure remains low normal but slightly improved from admission. Patient never required pressors. Diagnostic and therapeutic paracentesis today with 4.1 L out. We will see if those studies are helpful with trying to figure out the origin of her ascites. CT of liver without clear etiology. Liver was fairly normal. Continue antibiotics with Zosyn for now. Patient also on Zyvox which we will continue for now given worsening respiratory status and gram-positive cocci growing in urine, but if no pulmonary infection or MRSA in the urine is found, we will likely discontinue that in the next day or 2. 2. Chronic obstructive pulmonary disease exacerbation, respiratory distress. Patient with some mildly increased work of breathing, increased respiratory rate. She denies significant increase in her symptoms, but definitely appears less comfortable. Did a little better when sitting completely up. Does endorse some orthopnea previously. Chest x-ray not really showing a whole lot, although between patient's body habitus and the film being largely expiratory, it is somewhat limited. Given mild hypoxia, increased respiratory rate, and fairly unremarkable imaging, there was concern for PE but V/Q scan was negative. Likely COPD exacerbation, possibly complicated by her fairly significant volume of ascites. We will see if her respiratory status improves after paracentesis. Given orthopnea, we will also check echocardiogram. 3. Acute kidney injury. Patient still with significantly elevated creatinine, actually trended up slightly today to 4.2. Increased fluids. Nephrology following. CT without any evidence of obstruction. We will continue to monitor closely. 4. Possible urinary tract infection. Patient with gram-positive cocci growing from urine. On Zyvox as above. Continue to monitor. 5. Likely upper gastrointestinal bleed, coffee-grounds emesis. Patient with coffee-grounds emesis several times this morning which was Hemoccult positive, although repeat blood counts are pretty stable. GI on board. Patient on b.i.d. Protonix. Given respiratory status, I suspect they will defer EGD unless patient has significant drop in hemoglobin and hematocrit, but will see what they say. [facility]
[2019-09-29 18:20] LABS: TOTAL PROT BODY FLUID 4.5 g/dL
[2019-09-29 18:22] LABS: ALBUMIN BODY FLUID 2.8 g/dL; AMYLASE BODY FLUID 13 U/L
[2019-09-29 19:09] LABS: BODY FLUID SOURCE PERITONEAL FLUID; MONOS 63 %; POLYS 37 %; WBC BF 750 /cumm
[2019-09-30] MEDS: SOLU-MEDROL IV SCH ×3 (01:40→18:02)
[2019-09-30] MEDS: VENTOLIN HFA INH SCH ×4 (03:12→23:15)
[2019-09-30] MEDS: DUONEB (A & A) INH SCH ×6 (03:12→23:15)
[2019-09-30] MEDS: ZOSYN 2.25 GM in NS 50 ML IV SCH ×4 (04:24→23:02)
[2019-09-30] MEDS: ZYVOX 600 MG/D5W 600 MG/300 ML IVPB IV SCH ×2 (05:21→18:02)
[2019-09-30 06:42] LABS: INR 1.21; PROTIME 15.5 Seconds (11.0-16.0)
[2019-09-30 06:43] LABS: PTT 34.6 Seconds (22.3-41.8)
[2019-09-30 06:44] LABS: HEMATOCRIT 39.7 % (37.0-47.0); HEMOGLOBIN 12.4 g/dL (12.0-16.0); MCH 27.8 PG (27-31); MCHC 31.2 g/dL (33-37); MPV 9.7 FL (7.4-10.4); RBC 4.46 XMIL (4.2-5.4); RDW 14.8 % (11.5-14.5); WBC 13.67 X1000 (4.8-10.8)
[2019-09-30 06:48] LABS: ALBUMIN 2.9 g/dL (3.5-5.0); CALCIUM 9.2 mg/dL (8.8-10.2); CREATININE 3.1 mg/dL (0.5-0.9); PHOSPHORUS 4.1 mg/dL (2.7-4.5); POTASSIUM 4.1 mmol/L (3.5-5.1)
[2019-09-30] MEDS: NS 1,000 ML IV SCH ×2 (07:04→12:20)
[2019-09-30] MEDS: PROTONIX IV SCH ×2 (08:44→21:12)
--- NOTE | 2019-09-30 10:23 | Diag Imaging Result Doc PS360 ---
CHEST-PORTABLE - 09/30/2019 INDICATION: hypoxia, dyspnea, copd, ascites COMPARISON: 09/29/2019 FINDINGS: Lung volumes are improved. There is improvement in the patchy infiltrate or atelectasis at the left lung base. Stable borderline pulmonary vascular congestion. No significant pleural effusion. IMPRESSION: Improved lung volumes. Improved nonspecific airspace opacity at the left lung base. Electronically signed by Foreign Taylor 09/30/2019 10:20 AM
[2019-09-30] MEDS: ALBUMIN 25% IV SCH (10:44)
--- NOTE | 2019-09-30 16:15 | PROGRESS NOTE ---
DATE: 09/30/2019 INTERVAL HISTORY: Patient has had subjective improvement in her breathing since the paracentesis with 4.1 L off yesterday, but little improvement in her objective measures. Still requiring 4 to 5 L to maintain oxygenation. Does appear more comfortable today. Afebrile overnight. Abdominal pain almost resolved at this point. REVIEW OF SYSTEMS: Twelve-point review of systems negative except as per interval history. LABS: WBC 13.6, hemoglobin 12.4, hematocrit 39.7, platelets 411,000. Sodium 141, potassium 4.1, bicarb 22, BUN 51, creatinine 3.1, glucose 226, albumin 2.9. IMAGING: Chest x-ray with improved lung volumes and improved airspace opacity of the left lung base, unchanged borderline pulmonary vascular congestion. VITALS: T-max 98.4 degrees, pulse 86, respirations 24, blood pressure 120/55, O2 saturation 94% on 5 L by nasal cannula. PHYSICAL EXAMINATION: General: In no acute distress. Vitals: As above. HEENT: Normocephalic, atraumatic. Moist mucous membranes. Neck: No cervical adenopathy. Cardiovascular: Regular rate and rhythm. No murmurs noted. Pulmonary: Still with mildly decreased breath sounds throughout. Wheezing is essentially resolved. Abdomen: Soft, essentially nontender at this point. Bowel sounds positive. Stable hernia. Extremities: Peripheral pulses intact. No clubbing or cyanosis. Trace to 1+ lower extremity edema stable. Neurologic: Cranial nerves grossly intact. No focal deficits identified. Psychiatric: Normal mood and affect. Awake, alert, and oriented x3. ASSESSMENT AND PLAN: 1. Likely spontaneous bacterial peritonitis, sepsis. Patient with hypotension and leukocytosis on admission. Blood pressure essentially normal at this point. Paracentesis study showing approximately 250 neutrophils which especially given the length of time she has been on antibiotics prior to paracentesis is pretty consistent with spontaneous bacterial peritonitis. The patient's abdominal pain is much improved. Appears to be doing well on antibiotics with Zosyn and Zyvox which we will continue for now. Serum ascites albumin gradient just barely over 1.1 suggesting portal hypertension as the cause of her ascites. We will see if any of the other studies show anything. The patient's hepatitis panel was negative for that. On imaging the liver was fairly unremarkable. Echocardiogram pending to look at passive liver congestion from heart failure as a possible cause. Given large volume paracentesis yesterday, we are giving her some albumin. 2. Chronic obstructive pulmonary disease with exacerbation. Patient with pretty significant wheezing yesterday, but much improved today with the addition of steroids and continued nebulizer treatments. We will continue that 1 more day and likely start weaning steroids tomorrow. Although the patient's wheezing is much improved and she is subjectively less short of breath and does appear to have less increased work of breathing, her oxygenation is not really significantly improved. 3. Recent pneumonia. Patient recently treated for pneumonia but imaging here fairly unremarkable. Initial chest x-ray not really showing anything. On the inferior lungs visible on her CT abdomen pelvis again they are pretty clear with no evidence of residual pneumonia. A little bit of likely atelectasis at the left base and a couple for x-ray since then, but no convincing evidence of pneumonia. We will let Zyvox continue 1 more day to make sure that the gram-positive cocci in her urine is not Methicillin-resistant Staphylococcus aureus. If it speciates to not Methicillin-resistant Staphylococcus aureus, then we will likely discontinue Zyvox and continue with just Zosyn. 4. Possible UTI, urine growing gram-positive cocci. Antibiotics as above, monitor. 5. Acute kidney injury. The patient with fairly significant creatinine elevated above baseline, which worsens slightly after admission, but improving today. Giving albumin as above. Overall fluid balance is a little positive, which may be okay, but we will go ahead and discontinue saline and monitor. 6. Diabetes, on only metformin at home. Glucose has been pretty reasonable here, but will monitor in the setting of recent steroid initiation.
--- NOTE | 2019-09-30 17:46 | GASTROENTEROLOGY PROGRESS NOTE ---
DATE: 09/30/2019 SUBJECTIVE: Patient resting in bed. She had ascitic tap yesterday; 4.1 L was removed. The fluid studies showing 750 white cells and 37% polynuclear white cells. Her fluid, albumin was 2.8, and SAAG is less than 1.1 suggesting noncirrhotic source of ascites. The patient has a recent diagnosis of breast cancer in January 2019. This was proven by breast biopsy. She had [address] rounds [address] Garcia, and then she was supposed to have surgery or chemotherapy, but she never went back. She told this information to me today. She had taken a bowel prep, and she had moved her bowels. Her abdomen is softer today. She denies any fevers, rigors, or chills. OBJECTIVE: Vital signs: Temperature 97.9 degrees, pulse of 89, respiratory rate 18, blood pressure 130/60, saturating 92% on 5 nasal cannula. Body weight of 222 pounds 4.8 ounces. BMI of 37 kg. General Appearance: Obese. Lying in bed in no acute distress. HEENT: No pallor. No icterus. Neck: Supple. Abdomen: Obese. Abdominal wall hernia noted in the periumbilical region. Softer than yesterday. No rebound or guarding. Extremities: No cyanosis, clubbing. Neurologic: Alert, awake, and oriented x3. LABS: Hemoglobin and hematocrit are 12.4 and 39.7, white count 13.67, platelet count of 411,000. INR 1.21, PT of 15.65, PTT of 34.6. Sodium 141, potassium is 4.1, chloride 102, bicarb 22, BUN of 51, creatinine of 3.1, glucose of 226. Calcium is 9.2, phosphorus 4.1, albumin of 2.9. Her liver enzymes on 09/27 were normal. AST 17, ALT 12, alkaline phosphatase 86, total protein 6.3, albumin of 3.6. Urinalysis is positive UA, and ascitic fluid is showing evidence of peritonitis. Her hepatitis panel is nonreactive. Chest x-ray done today showed improved lung volumes, improved nonspecific air space opacity, left lung base. IMPRESSION AND PLAN: 1. Peritonitis as proven by ascitic tap. We will follow up on the cultures. She is being treated with Zosyn and Zyvox. Unclear etiology. May need ID consult to find the source. 2. Chronic obstructive pulmonary disease with exacerbation. She is receiving nebulizer treatments and weaning dose of steroids. 3. Pneumonia. Opacity seen in left lower lobe. She is on antibiotics with Zyvox. 4. Urinary tract infection with gram-positive cocci. She is on antibiotics. 5. Coffee-ground emesis is now resolved. We will continue on PPIs for that. 6. Constipation is now resolved. We will start her on MiraLAX twice daily and Dulcolax twice daily. 7. Abdominal hernia. Aware. 8. Obesity. Patient counseled to lose weight. 9. New diagnosis of breast cancer in January 2019. Was seen by Dr. Garcia. Had 3 rounds of chemotherapy and has not gone back since. She was advised breast surgery, but she did not get that done. We will involve Oncology here in case there is any relationship with the lung opacity and new onset of ascitic fluid in the abdomen. 10. Diabetes, on metformin. 11. Bowel regimen, MiraLAX, and GI prophylaxis with PPIs. The above plan of care discussed with the patient and the nursing staff and all questions answered. Please call us with any further questions. cc: MD Manny Friend MD Manish Arora, MD MTDD
[2019-09-30] MEDS: DULCOLAX PR SCH (21:11)
[2019-09-30] MEDS: MIRALAX PO SCH (21:12)
[2019-10-01] MEDS: SOLU-MEDROL IV SCH ×3 (01:52→18:05)
[2019-10-01] MEDS: DUONEB (A & A) INH SCH ×6 (03:19→23:14)
[2019-10-01] MEDS: VENTOLIN HFA INH SCH ×4 (03:19→22:01)
[2019-10-01] MEDS: ZYVOX 600 MG/D5W 600 MG/300 ML IVPB IV SCH ×2 (05:10→18:05)
[2019-10-01] MEDS: ZOSYN 2.25 GM in NS 50 ML IV SCH ×4 (05:12→22:52)
[2019-10-01 06:52] LABS: HEMATOCRIT 39.1 % (37.0-47.0); HEMOGLOBIN 12.1 g/dL (12.0-16.0); MCH 27.4 PG (27-31); MCHC 30.9 g/dL (33-37); MCV 88.7 FL (81-99); MPV 9.5 FL (7.4-10.4); RBC 4.41 XMIL (4.2-5.4); RDW 14.5 % (11.5-14.5); WBC 17.27 X1000 (4.8-10.8)
[2019-10-01 07:09] LABS: ALBUMIN 3.6 g/dL (3.5-5.0); CALCIUM 9.8 mg/dL (8.8-10.2); CREATININE 1.9 mg/dL (0.5-0.9); PHOSPHORUS 2.2 mg/dL (2.7-4.5); POTASSIUM 3.8 mmol/L (3.5-5.1)
[2019-10-01] MEDS: MIRALAX PO SCH ×2 (09:03→20:41)
[2019-10-01] MEDS: PROTONIX IV SCH ×2 (09:04→20:41)
[2019-10-01] MEDS: DULCOLAX PR SCH ×2 (09:04→20:41)
[2019-10-01] MEDS: ALBUMIN 25% IV SCH (09:05)
--- NOTE | 2019-10-01 13:02 | ECHO REPORT ---
ORDER DATE: 09/29/2019 MEASUREMENTS: Septal thickness 0.8, left ventricular internal diameter in diastole 4.2, posterior wall thickness 0.8. Left ventricular internal diameter in systole 2.0, aortic root 2.8. SUMMARY: 1. Technically difficult study due to limited acoustic window quality. 2. Mild sclerosis of trileaflet aortic valve demonstrated with normal aortic valve opening evident. Peak gradient across aortic valve is 10 to 15 mmHg. Mitral, tricuspid, and pulmonic valves are without evidence of structural abnormality with very mild tricuspid regurgitation and trace pulmonic insufficiency. The aortic root is normal size. 3. Normal left ventricular dimensions demonstrated. Estimated left ejection fraction appears to be at least 70%. No regional wall motion abnormalities are evident. Doppler suggests grade 1 left ventricular diastolic dysfunction. The left atrium, right atrium, right ventricle are grossly normal size with grossly preserved right ventricular systolic function. 4. No pericardial effusion. 5. Inferior vena cava not well demonstrated. CONCLUSIONS: 1. Technically difficult study. 2. Mild aortic valve sclerosis without stenosis. 3. Very mild tricuspid regurgitation with estimated systolic PA pressure of 30 to 35 mmHg. 4. Estimated left ventricular ejection fraction at least 70%. 5. Grade 1 left ventricular diastolic dysfunction suggested. cc: Kareem Iverson MD
--- NOTE | 2019-10-01 13:05 | PROGRESS NOTE ---
DATE: 10/01/2019 INTERVAL HISTORY: The patient still requiring significant amount of oxygen, but she does report marked improvement in her subjective shortness of breath, malaise and weakness. No new complaints. No acute events overnight, but patient did let us know yesterday afternoon and this morning that she, in addition to other noted history, has a recent diagnosis of breast cancer which is reportedly early stage. Surgery has been recommended since approximately January or February of this year, but patient has deferred that. Reportedly had [address] Garcia. REVIEW OF SYSTEMS: Twelve point review of systems negative, except as per interval history. LABS: WBC 17.2, hemoglobin 12.1, hematocrit 39.1, platelets 421. Sodium 144, potassium 3.8, BUN 41, creatinine 1.9, glucose 204. VITALS: T-max 98.2 degrees, pulse 85, respirations 20, blood pressure 154/92, O2 saturation 93% on 4 L by nasal cannula. PHYSICAL EXAMINATION: General: No acute distress. Vitals: As above. HEENT: Normocephalic, atraumatic. Moist mucous membranes. Neck: No cervical adenopathy. Cardiovascular: Regular rate and rhythm. No murmurs noted. Pulmonary: Mildly decreased breath sounds throughout. Wheezing remains resolved. Abdomen: Soft, nontender. Bowel sounds positive. Stable hernia. Extremities: Peripheral pulses intact. No clubbing, cyanosis. Trace to 1+ lower extremity edema, unchanged. Neurologic: Cranial nerves grossly intact. No focal deficits identified. Psychiatric: Normal mood and affect. Awake, alert, oriented x3. ASSESSMENT AND PLAN: 1. Spontaneous bacterial peritonitis, sepsis. Patient with hypertension and leukocytosis on admission. Blood pressure normalized at this point. Paracentesis showing approximately 250 neutrophils consistent with spontaneous bacterial peritonitis, especially given how many days after antibiotic administration paracentesis was taken. The cause of patient's ascites remains unclear. CT abdomen and pelvis previously did not show any clear liver pathology. There were a few hepatic cysts, but no solid lesions. No other major abnormality aside from ascites. Abdominal ultrasound was also unrevealing with only a right hepatic cyst with thin internal septation. Some concern for possible malignancy given patient's diagnosis of breast cancer with the patient choosing to delay treatment, but without any solid lesion to go after, not sure how we would further assess that unless cytology performed on her ascitic fluid comes back with something. We will continue antibiotics with Zosyn and Zyvox for now. 2. Chronic obstructive pulmonary disease with exacerbation. The patient receiving nebulizer treatments and steroids with significant improvement in her subjective dyspnea. 3. Acute versus acute on chronic hypoxia. Patient is still requiring fairly significant amounts of oxygen, likely related to the above. Has not been on oxygen previously, but may need oxygen on discharge. 4. Possible pneumonia. Patient was recently treated for pneumonia. Imaging here does not really show much, mostly atelectasis versus infiltrate left base, but when I look at her bases on her abdominal CT where they are visible, I do not really see anything that looks clearly like pneumonia. However, given patient's tenuous respiratory status, we will probably do a course of empiric antibiotics anyway. On Zosyn and Zyvox as above. 5. Likely urinary tract infection growing group B Streptococcus, which will be treated by her antibiotics as above. 6. Acute kidney injury. Creatinine markedly elevated on admission up to 4.2 at one point, but has been improving rapidly over the last couple days down to 1.9 today. May have been helped by albumin administration yesterday. Giving another dose of albumin today. Monitor. 7. Diabetes, only on metformin at home. Glucose up a little bit likely because of steroids, but nothing that is a significant issue. We will continue to monitor. 8. Likely upper gastrointestinal bleed. Patient with coffee-ground emesis a couple days ago, but is fairly limited and blood counts have been essentially stable. Gastroenterology on board, but unlikely to need endoscopy in the immediate future. Addendum: later spoke with Dr. May who did patient's original biopsy. It turns out that her breast cancer diagnosis is actually a little over 2 years ago and she has essentially refused all treatment since then. This significantly raises the odds of her unexplained ascites being malignant in nature. also with a daughter who of breast cancer in her 30's raising the possibility of genetic issue which might also predispose her to a new ovarian primary. SIL
--- NOTE | 2019-10-01 18:12 | GASTROENTEROLOGY PROGRESS NOTE ---
DATE: 10/01/2019 PHYSICIAN: Dr. Nichols. SUBJECTIVE: Patient resting in bed. She is feeling better. She is moving her bowels. She is eating better. Her white count has gone up. I did discuss her case with Dr. May. She has abdominal wall hernia and new onset of ascites and peritonitis with high white cells. We still do not know the source of her peritonitis. In that regard I am consulting Dr. May and Dr. Shankar Carrillo. She has a history of breast cancer which was diagnosed in January this year. She received 3 rounds of chemotherapy. She had a breast biopsy done by one of our surgeons. She would like to see another oncologist for further workup and Dr. Vale Gold has been consulted. OBJECTIVE: Vital Signs: Temperature 97.6 degrees, pulse rate of 85, respiratory rate 20, blood pressure 130/92, saturating 93% on 3 L nasal cannula. Body weight of 226 pounds, BMI of 37.6 kg meter. General Appearance: Moderately built lying in bed in no acute distress. HEENT: No pallor. No icterus. Neck: Supple. Abdomen: Obese. Abdominal wall hernia noted. No guarding or rebound. Extremities: No cyanosis or clubbing. Mild lower extremity edema noted. Neurologic: She is alert, awake, oriented. LABS: Hemoglobin and hematocrit is 12.1 and 39.1, white count of 17.27 platelet count of 421,000. Sodium 140, potassium 3.8, chloride 105, bicarb of 23, anion gap of 16, BUN of 41 creatinine 1.9. Glucose of 204. Calcium is 2.2. Albumin 3.6. Hepatitis panel is nonreactive. Ascitic fluid showed no AFB and peritoneal fluid showed no growth, no anaerobes. Urine culture showed Streptococcus agalactiae. IMPRESSION AND PLAN: 1. Peritonitis, unclear etiology. Her liver numbers have been fine. Her hepatitis panel is nonreactive. We will check ultrasound of the abdomen to evaluate the liver closely to evaluate for any kind of portal hypertension. I have also consulted Infectious Disease as well as General Surgery as the patient has unclear source of peritonitis and ascites. She has a hernia in the periumbilical region which is chronic. I am unsure if that is contributing to peritonitis or there is other pathology. 2. The patient has history of breast cancer. Dr. Vale Gold has been consulted. We need to evaluate the possibility of peritoneal carcinomatosis, although CT scan was negative. We will follow up on the fluid for cytology study. 3. Chronic obstructive pulmonary disease with exacerbation. She is on nebulizer treatment and steroids with significant improvement. 4. Leukocytosis. She is on antibiotics. 5. UTI. She is on antibiotics. 6. Possible pneumonia. She is on antibiotics. 7. Acute kidney injury. Continue to follow up with primary team. 8. Diabetes. She is on metformin at home. She is on sliding scale insulin. 9. Coffee-ground emesis a few days ago, which is now resolved. Hematocrit is stable and normal. 10. Constipation, is resolved. We will continue MiraLAX. 11. A smoker. Patient counseled to quit smoking completely. 12. She will continue bowel regimen with MiraLAX and Dulcolax and she is on GI Protonix. 13. I have spoken with Dr. May as mentioned above who will see the patient today. Dr. Carrillo will see the patient tomorrow. The above plans were discussed with the patient and the nursing staff. All questions were answered. Please call with any questions. cc: MD Dr. Simone Musa
--- NOTE | 2019-10-01 19:16 | GENERAL SURGERY CONSULTATION ---
DATE: 10/01/2019 REQUESTING PHYSICIAN: Lane Quinn MD REASON FOR CONSULTATION: History of breast cancer. HISTORY OF PRESENT ILLNESS: A 68-year-old female, well known to me who over 2 years ago I did a breast biopsy and found to have a breast cancer in the left breast. At that time, the mass measured 1.7 cm. I reviewed my office notes. Apparently, the patient followed up with me a couple of weeks later in September, and we were going to start the process of doing a workup for staging. She had that time said that she could not undergo surgery and needed to follow up again in October. She failed to follow up in October. We tried for several months to try to get the patient to follow back up with me, and finally in March my nurse was able to get a hold of her and said she still could not have things done for various social reasons. We did send her a certified letter after multiple attempts and multiple failed followup appointments. I am unsure the patient actually had got any chemotherapy by Dr. Garcia. I had never put a port in the patient. Since then she has come to the emergency department with abdominal pain. She was noted to have a significant amount of abdominal fluid and ascites, which she did not have on a CT scan done prior to the breast biopsy. She reports to me that she is still contemplating her options. I had a lengthy discussion with the patient about prognosis and concern that the ascites may be related to her untreated breast cancer. She is aware apparently some of the fluid has been sent for cytology, but the results are not back. I was asked to weigh an opinion on the patient. PAST MEDICAL HISTORY: Includes congestive heart failure, hypertension, COPD, hepatitis C, diabetes mellitus type 2 and neuropathy and breast cancer. PAST SURGICAL HISTORY: Includes appendectomy, bilateral tubal ligation and breast biopsy. FAMILY HISTORY: Positive for daughter with breast cancer. SOCIAL HISTORY: Current smoker. ALLERGIES: None. HOME MEDICATIONS: Reviewed and MAR reviewed. REVIEW OF SYSTEMS: Full 10-point review of systems obtained and negative except those specified in HPI. PHYSICAL EXAMINATION: Vital Signs: Patient is currently afebrile. Her vital signs are stable. General: No acute distress. -[place] female looks stated age. HEENT: Normocephalic, atraumatic. Pupils equal, round and reactive to light. Mucous membranes moist. Oropharynx benign. Neck: Supple. Trachea midline. Cardiovascular: Regular rate and rhythm. Lungs: Grossly clear. Abdomen: Soft, nontender, nondistended. Breast Exam: Done with filing clerk. There is a lesion noted in the left breast larger than what I previously have documented in my notes with skin dimpling. Some faint lymphadenopathy appreciated. Extremities: Moves all extremities. Neurologic: Grossly intact. Skin: No signs of jaundice. Vascular: All extremities perfused. LABORATORY: Reviewed. IMAGING: CT scan reviewed. ASSESSMENT AND PLAN: A 68-year-old female with history of breast cancer that is untreated and abdominal wall ascites. 1. Untreated breast cancer at this time. The lesion seems to have gotten bigger. I have to suspect that in the 2 years it has spread. I would be interested to see if cytology shows malignant cells from the ascitic fluid. We will follow up with those results. We will need to discuss with a multidiscipline approach team with Oncology, but I suspect the patient is not a surgical candidate at this point. 2. Ascites. Please see above. cc: Rodrigo May MD
[2019-10-02] MEDS: SOLU-MEDROL IV SCH (02:21)
[2019-10-02] MEDS: ZOSYN 2.25 GM in NS 50 ML IV SCH (04:36)
[2019-10-02] MEDS: VENTOLIN HFA INH SCH ×5 (04:51→23:05)
[2019-10-02] MEDS: DUONEB (A & A) INH SCH ×6 (04:53→23:05)
[2019-10-02] MEDS: ZYVOX 600 MG/D5W 600 MG/300 ML IVPB IV SCH (05:54)
[2019-10-02 06:35] LABS: HEMATOCRIT 37.7 % (37.0-47.0); HEMOGLOBIN 11.9 g/dL (12.0-16.0); MCH 28.4 PG (27-31); MCHC 31.6 g/dL (33-37); MPV 9.2 FL (7.4-10.4); RBC 4.19 XMIL (4.2-5.4); RDW 14.8 % (11.5-14.5); WBC 15.15 X1000 (4.8-10.8)
[2019-10-02 07:01] LABS: ALBUMIN 3.7 g/dL (3.5-5.0); CALCIUM 9.8 mg/dL (8.8-10.2); CREATININE 1.6 mg/dL (0.5-0.9); PHOSPHORUS 1.9 mg/dL (2.7-4.5)
--- NOTE | 2019-10-02 07:46 | INFECTIOUS DISEASE CONSULT REP ---
DATE: 10/02/2019 CONCLUSION: The patient was admitted to the hospital with fever and hypotension. I think this could have been caused by a group B streptococcal urinary tract infection or a left lower lobe pneumonia. The patient does have ascites, but I think it is more likely that the ascites is due to carcinomatosis from breast cancer rather than being due to an infection. RECOMMENDATIONS: I have discontinued Zosyn and Zyvox, and have placed the patient instead on Rocephin. Some of the side effects of the antibiotic, including rash and diarrhea, have been explained to the patient, who agrees with treatment. I am going to go ahead and order a sputum culture and Quantiferon as well. DISCUSSION: The patient tells me that she, in the past week, had a large amount of abdominal bloating to the point that she could barely pass her urine or stool. She also tells me that 2 days ago, she started coughing and produced some cloudy sputum. The patient's CBC shows a white count of 15,150, hemoglobin 11.9, platelet count 413,000. Creatinine is 1.9. GFR is 32. The ascitic fluid white blood cell count was 750 with 63% of the cells being mononuclear. Hepatitis panel is nonreactive. Acid-fast stain of the ascitic fluid is negative. Culture of the ascites is no growth. The patient's urine grew group B Streptococcus. Blood cultures are negative. Lung scan shows no pulmonary embolus. CT scan of the abdomen and pelvis shows a hiatal hernia, ascites, calcified uterine fibroid, fat-filled abdominal wall hernia, and a left lower lobe infiltrate/atelectasis. PAST MEDICAL HISTORY/REVIEW OF SYSTEMS: Eyes and Ears: Her hearing and vision is good. Neck: No stiffness. Respiratory: See present illness. Cardiac: No chest pain or palpitations. GI: See present illness. : The patient said that when she came in, she did have decreased urine output, but she denied having dysuria or flank pain. Bones/Joints/Muscles: No joint swelling or muscle aching. Neurologic: No seizures. No loss of motor or sensory function. VINYL DIPPER HISTORY: She is a 2, para 2, AB 0. She delivered her children vaginally. She has uterine fibroids. She has also had a tubal ligation. PREVIOUS HOSPITALIZATIONS AND OPERATIONS: She has had labor and deliveries, a tubal ligation, appendectomy, removal of rectal cyst, breast biopsy which showed breast cancer. The patient also had a fracture of the right ankle, which required surgical treatment that included putting metal on the ankle. MEDICAL DISEASES: Positive for diabetes mellitus, obesity, hypertension, congestive heart failure, cigarette smoking, chronic obstructive pulmonary disease, breast cancer which was biopsied, but the patient never took treatment for it. INFECTIOUS DISEASE HISTORY: Positive for pneumonia. Negative for UTI. FAMILY HISTORY: Positive for diabetes mellitus, hypertension, myocardial infarction, stroke, and cancer. SOCIAL HISTORY: The patient lives in [place]. She is a . She lives with some family members. She smokes cigarettes. She does not drink alcoholic beverages or abuse drugs. She did tell me that aspirin causes her to have constipation. ALLERGIES: The patient has no drug allergies. HOME MEDICATIONS: Include albuterol inhaler, Norvasc, lisinopril/hydrochlorothiazide, metformin, and Spiriva. PHYSICAL EXAMINATION: Vital Signs: Temperature is 98.1 degrees, pulse 78, respirations 24, blood pressure 133/68. The patient is 5 feet 5 inches tall, weighs 227 pounds. General: This is an obese, elderly female. She is in no acute distress. HEENT: She can hear my spoken words and see near objects. I did not see any white patches in her mouth. Neck: No meningismus. Lungs: Clear to auscultation. Cardiovascular: Heart is regular. Breasts: On the left breast laterally, there is a hard mass where the patient had a breast biopsy done. Abdomen: In the upper part of the abdomen, there is a large mass, a part of which has a very hard structure. Neurologic: The patient is alert. She can move her extremities. There is no tremor. Her memory as regarding her medical history was good. There was no tremor. Integument: No rash. Thank you for the consult. cc: Shankar Carrillo MD [facility]
[2019-10-02] MEDS: PROTONIX IV SCH (07:49)
[2019-10-02] MEDS: ROCEPHIN 2 GM in NS 50 ML IV SCH (07:50)
[2019-10-02] MEDS: ALBUMIN 25% IV SCH ×2 (07:50→08:05)
[2019-10-02] MEDS: DULCOLAX PR SCH (08:04)
[2019-10-02] MEDS: MIRALAX PO SCH (08:04)
[2019-10-02] MEDS ORDERED: NS 250 ML ONE (08:54)
--- NOTE | 2019-10-02 09:21 | PROGRESS NOTE ---
DATE: 10/02/2019 INTERVAL HISTORY: No acute events overnight. Ms. Vegas had an uneventful night. SUBJECTIVE: Ms. Vegas denies any chest pain or palpitation. Her shortness of breath is still there; however, she is feeling better than before. She denies any cough with expectoration. Her abdominal pain has significantly decreased. She continues to smoke, and I counseled her about smoking cessation. OBJECTIVE: Vital Signs: Temperature of 98.3 degrees, pulse 86, respiratory 12, blood pressure 150/80, saturating 94% using nasal cannula. General: On physical examination, she is not in any acute distress. Oral cavity is moist. She had decreased air entry of bilateral infrascapular region with inspiratory crackles. Cardiac: S1 and S2 normal. No murmur or gallop. Abdomen: Soft. There is distention. There is an umbilical hernia, which is not reducible without any tenderness. She has dullness to percussion of bilateral flanks and lower abdominal region. Active bowel sounds. Extremities: She has bilateral lower extremity edema. Neurologic: She is alert and oriented x3. Input and Output: Suggest she is positive 5 liters since admission. LABS: Suggestive of persistent leukocytosis, normocytic anemia in acceptable range of platelet count. Her BUN and creatinine have been improving. MICROBIOLOGY: No positive data. IMAGING: No new imaging today. ASSESSMENT AND PLAN: 1. Presumed sepsis on presentation with leukocytosis, tachycardia, and hypotension. Differential includes bilateral lower lobe pneumonia versus Streptococcus agalactiae urinary tract infection. There were also concerns with spontaneous bacterial peritonitis. I will continue intravenous antibiotics, which has been changed to intravenous ceftriaxone. Her blood culture did not have any growth. 2. Ascites and bilateral lower extremity edema. Ultrasound and CT scan of the abdomen did not have evidence of liver cirrhosis. Her serum ascitic albumin gradient is less than 1.1, making portal hypertension unlikely cause of her ascites. There was no peritoneal carcinomatosis on the CT scan reported. She does have pulmonary hypertension, COPD: although cor pulmonale is likely, her pulmonary artery pressures are only around 35 mmHg. She is status post 4.1 liters of paracentesis on 09/29/2019. I will consider starting her on Lasix. Follow up ascitic fluid cytology to rule out malignant ascites. 3. Active tobacco abuse with acute chronic obstructive pulmonary disease exacerbation. She does not have wheezes on my today's examination. I will slowly taper off intravenous steroids and continue inhaled bronchodilators. 4. Acute versus chronic hypoxic respiratory failure. She does have a history of chronic obstructive pulmonary disease and active tobacco abuse. I would start her incentive spirometer. She may need oxygen at the time of discharge. 5. Acute kidney injury. This could be in the setting of profound hypotension at the time of presentation and probably intravascular volume depletion due to presumed sepsis, now improving. I will continue to monitor BMP. 6. Noninsulin dependent diabetes mellitus on metformin at home. I will continue to monitor her blood glucose; positive gastric occult blood test on presentation could be in the setting of upper gastrointestinal bleed. I will transition her from intravenous to oral Protonix. DISPOSITION: I will continue to monitor the patient inside the hospital. I will have physical therapy evaluate her to assess functional status. Plan of care discussed with the patient. Her questions have been answered. If her oxygen requirements goes down and she is stable, I would anticipate discharge in next 48 hours or so. cc: Tor Tran MD [facility]
[2019-10-02] MEDS: LASIX PO SCH (10:21)
[2019-10-02] MEDS: PREDNISONE PO SCH (10:21)
--- NOTE | 2019-10-02 11:20 | Diag Imaging Result Doc PS360 ---
US ABDOMEN-COMPLETE - 10/02/2019 INDICATION: Peritonitis, Ascites, Breast cancer COMPARISON: 09/28/2019, 09/27/2019 FINDINGS: There is trace ascites. There is a small septated cyst in the liver. There is no change from prior. IMPRESSION: Trace ascites. Otherwise no change from prior. Electronically signed by Foreign Taylor 10/02/2019 11:17 AM
--- NOTE | 2019-10-02 11:40 | GASTROENTEROLOGY PROGRESS NOTE ---
DATE: 10/02/2019 SUBJECTIVE: Resting in bed. She just came back from the ultrasound of the abdomen. She was seen by Dr. Shankar Carrillo yesterday and he switched the patient's antibiotics to Rocephin and he discontinued Zosyn and Zyvox. Dr. May saw the patient and suggested chemotherapy for breast cancer. The patient does have abdominal wall hernia which I think could have been exacerbated by ascites. The patient is moving her bowels. She is eating better. OBJECTIVE: Vital signs: Temperature 98.3 degrees, pulse of 87, respirations 20, blood pressure 152/81, saturating 93% on 3 nasal cannula. Body weight of 227 pounds 4 ounces. BMI of 37.8 kg/m2. General: Ms. Vegas is obese, sitting in bed, in no acute distress. HEENT: No pallor. No icterus. Neck: Supple. Abdomen: Obese. Umbilical hernia noted. No rebound or guarding. Extremities: No cyanosis, clubbing. Mild lower extremity edema noted. Neurologic: She is alert, awake, oriented x3. LABORATORY DATA: Hemoglobin and hematocrit is 11.9 and 37.7, white count of 15.15, platelet count of 413,000. Sodium 147, potassium 4, chloride 100, bicarb 25, anion gap 14, BUN of 29, creatinine 1.6, glucose of 180, calcium is 9.8, phosphorus 1.9, albumin 3.7. Peritoneal fluid cultures are negative. Urine culture showing Streptococcus agalactiae group B. IMPRESSION AND PLAN: 1. Ascites of unclear etiology. Need to evaluate for peritoneal carcinomatosis. Surgery is on board. Dr. Vale Gold has been consulted. 2. Presumed sepsis on admission with pneumonia and urinary tract infection. Dr. Carrillo is on board and started the patient on IV Rocephin. 3. Smoker. Patient counseled to quit smoking completely. 4. Chronic obstructive pulmonary disease. The patient is currently treated per inhaled bronchodilators. 5. Acute on chronic hypoxic respiratory failure is improving. 6. Acute kidney injury. Being monitored by primary care team. 7. Diabetes mellitus. Being monitored by primary care team. 8. Breast cancer, untreated. Dr. Vale Gold was consulted. 9. Peritonitis as seen on the fluid studies. She is on antibiotics per Dr. Carrillo. 10. Constipation is improved. Will continue on MiraLAX once daily and discontinue Dulcolax. Above plan discussed with the patient and all questions answered. Please call us with any further questions. cc: MD Dr. Marc Musa MD
--- NOTE | 2019-10-02 12:39 | NEPHROLOGY PROGRESS NOTE ---
DATE: 10/02/2019 SUBJECTIVE: She is sitting up in the bed. States she is feeling well. No shortness of breath or other complaints. OBJECTIVE: Vital Signs: Blood pressure 156/81, heart rate 87, respirations 20, afebrile. Intake 1 L, output 900 mL. General: No acute distress. Skin: Warm and dry. Neck: Neck veins are not distended. Heart: Regular. No gallops. Lungs: Equal. No crackles or wheezes. Abdomen: Soft, nontender. Bowel sounds present. Extremities: 1+ edema, right greater than left. No clubbing or cyanosis. IMPRESSION AND PLAN: Acute kidney injury, resolving. Her initial urine studies suggested proteinuria. I will recheck this. If she is otherwise ready for discharge, then we will follow her in the office in 2 weeks. cc: Manny Vazquez MD
[2019-10-02 14:14] LABS: URINE SOURCE VOIDED
[2019-10-02 14:28] LABS: BILIRUBIN URINE NEGATIVE (NEGATIVE); BLOOD URINE SMALL (NEGATIVE); COLOR YELLOW; GLUCOSE URINE NEGATIVE (NEGATIVE); KETONE URINE NEGATIVE (NEGATIVE); LEUKOCYTES URINE NEGATIVE (NEGATIVE); NITRITE URINE NEGATIVE (NEGATIVE); PH URINE 5.5; PROTEIN URINE NEGATIVE (NEGATIVE); SP GRAVITY URINE 1.013; TURBIDITY URINE CLEAR (CLEAR); UROBILINOGEN URINE NORMAL (NORMAL)
[2019-10-02 14:29] LABS: UR EPITHELIAL CELLS <10 /HPF (<10); URINE BACTERIA NEGATIVE /HPF; URINE WBC <10 /HPF (<10)
[2019-10-02 14:32] LABS: UR CREAT RANDOM 42.9 mg/dL (11-20); UR PROT RANDOM 11.6 mg/dL
[2019-10-02] MEDS: NORVASC PO SCH (16:00)
--- NOTE | 2019-10-02 18:49 | HEMO/ONC CONSULTATION ---
DATE: 10/02/2019 CONSULTATION REQUESTED BY: Hospitalist service. REASON FOR CONSULTATION: The consultation is for metastatic cancer. HISTORY OF PRESENT ILLNESS: Ms. Vegas is a 68-year-old female who arrived to the emergency department at [facility] complaining of left lower abdominal pain. She was found to be hypotensive upon arrival. She proceeded to be worked up and was actually found to have abdominal ascites. She does have a history of breast cancer treated back in 2017. However, she did not undergo surgical resection due to was believed to be lost to followup. She is now status post paracentesis, and final cytology on the ascitic fluid is pending, though it does appear to be related to underlying metastatic disease. She has been evaluated by surgery. The untreated lesion has increased in size. We have been consulted to help assist in treatment planning for this patient. PAST MEDICAL HISTORY: 1. Congestive heart failure. 2. Hypertension. 3. COPD. 4. Hepatitis C. 5. Diabetes type 2. 6. Breast cancer, originally diagnosed back in 2017. PAST SURGICAL HISTORY: 1. Positive for appendectomy. 2. Bilateral tubal ligation. FAMILY HISTORY: Positive for some sort of metastatic cancer in the patient's daughter, though she cannot identify the primary. No other known contributory family history. SOCIAL HISTORY: Patient lives with her family and smokes 1/2 pack of cigarettes per day. She has done so for 40+ years. She denies any alcohol or illicit drug use. REVIEW OF SYSTEMS: Twelve point review of systems has been completed negative except for expressed in HPI. PHYSICAL EXAMINATION: Vital Signs: Temperature 98.1 degrees, heart rate 90, respirations 26, blood pressure 171/72, and O2 saturations 94% on 3 L nasal cannula. General: This is an female sitting on the side of her hospital bed. She has just finished eating lunch. There is no one in the room with her. She is in no acute distress. HEENT: Head: Normocephalic, atraumatic. Eyes: Pupils equal, round, reactive. Ears, nose, throat, neck, and mouth: Oral mucosa is normal. Cardiovascular: S1 and S2 heard. No murmurs, rubs, or gallops appreciated. Respiratory: Chest is clear. Gastrointestinal: Soft. Musculoskeletal: No bony abnormalities. Skin: No rash. Neurologic: Patient is alert and oriented with no obvious focal motor deficits at this time. LABS AND STUDIES: White blood cells today are 15.15, hemoglobin 11.9, platelet count 413,000. Sodium is 147, potassium 4, chloride is 108, CO2 of 25, BUN is 29, creatinine is 1.6, and glucose is 180. Abdominal and pelvis CT done on 09/27/2019 shows development of moderate amount of abdominal ascites. Moderate size hiatal hernia. Hepatic cyst. Colonic diverticulosis. Large calcified uterine fibroid. Fat filled anterior abdominal wall hernia just above the umbilicus. Most recent chest x-ray done on 09/30/2019 is pretty much stable. ASSESSMENT AND PLAN: 1. Breast cancer back in 2017 with progression. Now with new abdominal ascites. We will need to wait for final cytology to return to make further treatment planning. The patient expressed that she is interested in pursuing treatment. We will wait for confirmation of diagnosis and have her follow up with us as an outpatient and discuss treatment options. We will also follow back up with surgery's recommendations. 2. Sepsis on presentation. She is being treated with antibiotics per the primary team. 3. Hypoxic respiratory failure. She is thought to possibly have pneumonia. Again, she is on oxygen, as well as antibiotics. 4. Acute kidney injury. Nephrology is involved. Her creatinine is improved today. Thank you for consulting us with Ms. Vegas. We will continue to follow along and adjust our treatment plan per her hospital course. Dictated by DALJIT Torres for Vale Gold MD cc: Vale Gold MD I have seen and examined the patient and the above note reflects my history, physical exam, assessment and plan. Vale MUJICA
[2019-10-02] MEDS: PRILOSEC PO SCH (21:05)
[2019-10-03] MEDS: DUONEB (A & A) INH SCH ×4 (04:59→16:13)
[2019-10-03] MEDS: VENTOLIN HFA INH SCH ×3 (04:59→16:10)
[2019-10-03] MEDS: PRILOSEC PO SCH ×2 (05:46→06:34)
[2019-10-03 06:39] LABS: HEMATOCRIT 41.7 % (37.0-47.0); MCHC 31.2 g/dL (33-37); MCV 89.9 FL (81-99); MPV 9.1 FL (7.4-10.4); RBC 4.64 XMIL (4.2-5.4); RDW 14.9 % (11.5-14.5); WBC 17.36 X1000 (4.8-10.8)
--- NOTE | 2019-10-03 06:56 | GENERAL SURGERY PROGRESS NOTE ---
DATE: 10/03/[address] Gold. At this point, awaiting cytology report. Did discuss with Pathology. They did receive samples. They were reviewed with Cytology. If it does indeed show this malignant ascites, I would recommend pursuing nonsurgical treatments first. I suspect that she is probably not a surgical candidate. Regardless, I will follow peripherally until pathology from the cytology is back. cc: Rodrigo May MD
[2019-10-03 07:07] LABS: ALBUMIN 4.3 g/dL (3.5-5.0); CALCIUM 10.2 mg/dL (8.8-10.2); CREATININE 1.3 mg/dL (0.5-0.9); PHOSPHORUS 1.7 mg/dL (2.7-4.5); POTASSIUM 3.9 mmol/L (3.5-5.1)
[2019-10-03] MEDS ORDERED: MIRALAX PO SCH (09:00)
[2019-10-03] MEDS: LASIX PO SCH (09:12)
[2019-10-03] MEDS: NORVASC PO SCH (09:12)
[2019-10-03] MEDS: ROCEPHIN 2 GM in NS 50 ML IV SCH (09:12)
[2019-10-03] MEDS: PREDNISONE PO SCH (09:13)
[2019-10-03] MEDS ORDERED: LEVAQUIN PO SCH (11:15)
--- NOTE | 2019-10-03 11:54 | INFECTIOUS DISEASE PROGRESS NO ---
DATE: 10/03/2019 PRESENT ILLNESS: Ms. Vegas has a group B strep urinary tract infection as well as a possible left lower lobe pneumonia. MEDICATIONS: She did receive 1 dose of Rocephin 2 g IV yesterday but is refusing an IV today, so we will change her to oral Levaquin 500 mg by mouth daily. PHYSICAL EXAMINATION: Vital Signs: Temperature is 97.9 degrees, pulse rate 81, respiratory rate 18, blood pressure 166/91, O2 saturation is 96% on 3 L nasal cannula. General: This is a chronically ill-appearing, obese, elderly female. She is sitting up on the side of the bed. Currently irritable but in no acute distress. HEENT: She is atraumatic, normocephalic. Oral mucous membranes are pink and moist. Conjunctivae are pink. Neck: Supple. Trachea is midline. Cardiovascular: Heart rate and rhythm are regular. Normal sinus rhythm on the monitor. Respiratory: Lung sounds are bilaterally clear to auscultation. Diminished in the bases. Abdomen: Areas of tenderness. Bowel sounds are active. Neurologic: She is awake, alert, oriented, and able to move around in the bed independently. LABORATORY AND X-RAY: Today her white count is 17.36, hemoglobin 13, platelet count 469,000. Creatinine is 1.3 with a GFR 49. Her urine has grown group B strep. Preliminary peritoneal fluid shows no anaerobes and no growth on the culture. No imaging reports today. ASSESSMENT AND PLAN: Ms. Vegas has a group B strep urinary tract infection as well as a possible left lower lobe pneumonia. There is a leukocytosis, however, she is receiving steroids by mouth. She is frustrated today, and is refusing to have another IV or PICC line inserted. She has talked about having a Port-A-Cath put in and receiving chemotherapy and radiation; however, she is not sure that she wants to do that, and is also talking about going home to versus the possibility of treatment. I have talked to her about providing her with an oral treatment for her urinary tract infection and pneumonia using Levaquin. We will see her back in the office in 2 weeks with a follow up chest x-ray. I have discussed the side effects of Levaquin to report, which include rash, diarrhea, mouth pain/sores, tendon rupture and seizures. She states understanding and agreed with the plan. We will discontinue the IV Rocephin at this time. A prescription for Levaquin has been electronically sent to her pharmacy. These plans have been discussed with and recommended by Dr. Carrillo. COMORBIDITIES: for Ms. Vegas include diabetes mellitus, obesity, congestive heart failure, cigarette smoking, COPD, and breast cancer with metastatic components. Dictated by CHINA Camarillo for Shankar Carrillo MD cc: Shankar Carrillo MD [facility]
[2019-10-03 15:50] VITALS: BP 142/84
--- NOTE | 2019-10-06 17:24 | DISCHARGE SUMMARY ---
ADMISSION DATE: 09/27/2019 DISCHARGE DATE: 10/03/2019 DISCHARGE DIAGNOSES: 1. Presumed sepsis on presentation with leukocytosis, tachycardia, hypotension. 2. Ascites with bilateral lower extremity edema. 3. Active tobacco abuse. 4. Chronic obstructive pulmonary disease exacerbation improved. 5. Acute on chronic hypoxic respiratory failure. 6. Acute kidney injury. 7. Noninsulin dependent diabetes mellitus type 2. CONSULTATIONS: Dr. Shankar Carrillo infectious disease. Dr. Lane Quinn from gastroenterology. PROCEDURES: 1. Chest x-ray done on admission showed negative exam. 2. Abdomen and pelvis CT showed interval development of a small to moderate amount of abdominal ascites. Moderate size hiatal hernia. Hepatic cyst. Colonic diverticulosis with moderate to prominent atherosclerosis and large calcified uterine fibroid. 3. Echocardiogram with Doppler showed a technically difficult study with ejection fraction of 70%. Grade 1 ventricular diastolic dysfunction was suggested. HOSPITAL COURSE: This patient was admitted to the hospital because of abdominal pain that happened 3 days before admission. She was recently treated for pneumonia a week ago, antibiotics in this case, doxycycline. Also at presentation she has been hypertensive. She was treated with broad-spectrum antibiotics. Also, for acute kidney injury she received aggressive fluid resuscitation. During all her hospitalization, her labs were normalizing the renal function. Also the patient was having cough that was getting better. The patient did get upset because she does not want to have any more IV antibiotics for her infections. I have talked with Dr. Carrillo and he agreed to provide antibiotics by mouth for this patient. Regarding her untreated left breast cancer, she was not completely sure to do anything about it so she requests us to give her sometimes to think about the possibility to treat this time this breast cancer. At this point, the patient prefers to go home. Antibiotic will be provided with Dr. Shankar Carrillo. She is going to be discharged in stable condition. DISCHARGE PHYSICAL EXAMINATION: Vitals: Temperature 97.9 degrees, heart rate 86, respiratory rate 20, blood pressure 166/91, O2 saturation 94% on 3 L nasal cannula. General: This is a chronically ill-appearing, 68-year-old female lying in bed, in no acute distress. Cardiovascular exam: S1, S2 heard. No murmurs, gallops, or rubs. Regular rate and rhythm. Respiratory exam: Clear bilaterally to auscultation. Decreased breath sounds noted in the left lower part of the lung. Abdomen is soft, nontender to palpation. Bowel sounds present. No organomegaly. Extremities: No clubbing cyanosis, or edema. Peripheral pulses present in both legs. Clinical exam patient alert x3. Moves 4 extremities. DISCHARGE DISPOSITION: Home to self-care. LIST OF MEDICATIONS: We are going to start antibiotics as per Dr. Carrillo' recommendation. At the time of discharge summary those were not available. We are not going to make any changes to her current medications. She is supposed to see oncologist in case she is interested in having treatment for her left breast cancer. cc: Dano Simon MD [facility]
== END 2019-10-03 17:55 | disposition home or self-care (01) | DRG 871 ==
LOC: SUPCPDRO → ED 11:54 → 2N 16:32 → SUATTDRO 16:32
PROVIDERS: ATTEND Internal Medicine

== ENCOUNTER 2019-10-25 15:35 | Inpatient (IN) ==
[2019-10-25] MEDS ORDERED: ZOFRAN IV ONE (16:03)
[2019-10-25] MEDS ORDERED: G.I. COCKTAIL PO ONE (16:03)
--- NOTE | 2019-10-25 16:04 | Diag Imaging Result Doc PS360 ---
EXAM: CHEST-1 VIEW 10/25/2019 HISTORY: sob, cp TECHNIQUE: Erect AP portable at 1557 COMMENT: There is atelectasis versus pneumonia in the right lower lobe. The left lower lobe is clearer than on the previous study of 09/30/2019. IMPRESSION: Atelectasis right lower lobe. Electronically signed by Dominik Alberts 10/25/2019 4:02 PM
[2019-10-25 16:05] LABS: BASO# 0.05 X1000 (0.0-0.2); BASO% 0.4 % (0.0-0.8); HEMOGLOBIN 12.6 g/dL (12.0-16.0); IMM GRAN# 0.04 X1000 (0.0-0.04); IMM GRAN% 0.4 % (0.0-0.5); LYMPH# 0.91 X1000 (1.2-3.4); MCH 27.3 PG (27-31); MCHC 31.5 g/dL (33-37); MCV 86.6 FL (81-99); MONO# 0.64 X1000 (0.11-0.59); MONO% 5.6 % (1.7-9.3); MPV 9.1 FL (7.4-10.4); NEUT# 9.76 X1000 (1.4-6.5); NEUT% 85.6 % (42.2-75.2); PLT 354 X1000 (130-400); RBC 4.62 XMIL (4.2-5.4)
[2019-10-25 16:15] LABS: INR 1.11; PROTIME 14.5 Seconds (11.0-16.0)
[2019-10-25 16:23] LABS: PTT 29.9 Seconds (22.3-41.8)
[2019-10-25 16:26] LABS: ALB/GLOB RATIO 1.4; ALBUMIN 3.7 g/dL (3.5-5.0); CALCIUM 9.5 mg/dL (8.8-10.2); CREATININE 2.9 mg/dL (0.5-0.9); POTASSIUM 4.5 mmol/L (3.5-5.1); TOTAL BILIRUBIN 0.38 mg/dL (0.20-1.00); TOTAL PROTEIN 6.3 g/dL (6.3-8.3)
[2019-10-25 16:39] LABS: ALLEN TEST YES; BE 4.3 mmoll (-3.0-3.0); BLOOD TYPE ARTERIAL; HCO3-(ACT) 28.2 mmoll (20.0-26.0); METHB 0.4 % (0.0-1.5); O2(CT) 16.1 mL/dL (15.0-23.0); PCO2(98.6) 30 mmHg (35-45); PO2(98.6) 67 mmHg (60-100); SAMPLE BLOOD; SAO2 97.8 % (95.0-100.0); THB 12.4 g/dL (11.5-17.4); pH(98.6) 7.55 (7.35-7.45)
[2019-10-25] MEDS ORDERED: NS 1,000 ML IV ONE (16:40)
[2019-10-25 16:41] LABS: MODALITY CANNULA
[2019-10-25] MEDS ORDERED: VANCOMYCIN 1 GM/NS 1 GM/250 ML IVPB IV ONE (16:56)
[2019-10-25] MEDS: ZOSYN 4.5 GM in NS 100 ML IV SCH (17:00)
[2019-10-25] MEDS ORDERED: MORPHINE IV ONE (17:22)
[2019-10-25 18:13] LABS: URINE SOURCE CLEAN CATCH
[2019-10-25 18:16] LABS: BILIRUBIN URINE SMALL (NEGATIVE); BLOOD URINE NEGATIVE (NEGATIVE); COLOR YELLOW; GLUCOSE URINE NEGATIVE (NEGATIVE); KETONE URINE 40 mg/dL (NEGATIVE); LEUKOCYTES URINE NEGATIVE (NEGATIVE); NITRITE URINE NEGATIVE (NEGATIVE); PROTEIN URINE TRACE mg/dL (NEGATIVE); SP GRAVITY URINE 1.022; TURBIDITY URINE CLEAR (CLEAR); UROBILINOGEN URINE 2 mg/dL (NORMAL)
[2019-10-25 18:17] LABS: UR EPITHELIAL CELLS <10 /HPF (<10); URINE BACTERIA NEGATIVE /HPF; URINE RBC <10 /HPF (<10); URINE WBC <10 /HPF (<10)
--- NOTE | 2019-10-25 18:18 | EKG Report ---
Test Performed on : 10/25/2019 4:04:10 PM Test Reason : pneumonia Blood Pressure : / mmHG Vent. Rate : 106 BPM Atrial Rate : 106 BPM P-R Int : 116 ms QRS Dur : 084 ms QT Int : 332 ms P-R-T Axes : 072 030 036 degrees QTc Int : 441 ms Sinus tachycardia. Otherwise normal ECG When compared with ECG of 11-SEP-2014 18:07, No significant change was found Unconfirmed Result
--- NOTE | 2019-10-25 18:53 | Diag Imaging Result Doc PS360 ---
EXAM: KUB ABDOMEN 10/25/2019 HISTORY: abdomen pain. ? constipation TECHNIQUE: KUB COMMENT: There is a large calcified leiomyoma in the mid pelvis. There is no evidence of bowel dilatation organomegaly or mass otherwise. The appearance of the abdomen and pelvis has not changed significantly since 09/27/2019. IMPRESSION: No evidence of acute disease. Electronically signed by Dominik Alberts 10/25/2019 6:51 PM
[2019-10-25] MEDS ORDERED: SODIUM CHLORIDE 0.9% INJ ONE (19:08)
[2019-10-25] MEDS ORDERED: PROTONIX IV ONE (19:08)
--- NOTE | 2019-10-25 19:27 | Diag Imaging Result Doc PS360 ---
EXAM: CT THORAX W/O CONTRAST 10/25/2019 HISTORY: Dyspnea TECHNIQUE: This exam was performed using automated exposure control, adjustment of mA or kV according to patient size, and/or use of iterative reconstruction technique. COMMENT: The current study is compared with the previous examination of 09/11/2014. There is a large hiatal hernia. There are bilateral pleural fluid collections more so on the right than the left. There is some atelectatic appearing opacity in both lower lobes. There is fluid in the subphrenic space which was not present previously. There is a lucent lesion in the anterior right hepatic lobe measuring 3.7 cm in diameter with a CT density of less than 7 Hounsfield units. This is presumably cystic however it was considerably smaller on the previous study. There are several smaller cysts and calcified granulomata in the visualized portions of the liver. The hiatal hernia was not present at the time the previous study. There are extensive coronary calcifications. There is no evidence of significant adenopathy. There is fluid and some solid material within the upper esophagus which appears to be somewhat distended. There may be some mucus or aspirated material in the bronchi in the right lower lobe. The regional skeleton appears to be intact. IMPRESSION: Hiatal hernia with reflux and possible retained food particles in the upper esophagus. Bilateral pleural effusions. Atelectasis versus pneumonia in the lung bases particularly on the right. The possibility of aspiration cannot be excluded. Mild ascites. Electronically signed by Dominik Alberts 10/25/2019 7:25 PM
[2019-10-25] MEDS: HEPARIN SUBQ SCH (19:44)
[2019-10-25] MEDS: ZYVOX 600 MG/D5W 600 MG/300 ML IVPB IV SCH (19:44)
[2019-10-25] MEDS: NS 1,000 ML IV SCH (19:45)
--- NOTE | 2019-10-25 21:00 | HISTORY AND PHYSICAL ---
PRIMARY CARE PHYSICIAN: Dr. Hernandez. ONCOLOGIST: Dr. Gold. PRESENTING COMPLAINT: Epigastric pain, nausea, and vomiting. HISTORY OF PRESENTING COMPLAINT: Ms. 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 Gold. She says she has not started on any adjuvant therapy yet. Ms Vegas was admitted to the hospital on 09/27/2019 and was treated for presumed pneumonia and discharged on 10/06/2019. She says she was doing fairly okay until a couple days after she got discharged, when she started having epigastric to chest pain. She said initially she thought it was related to gas; however, this has continued getting worse, so she came in because she has now been having vomiting and intractable nauseation. She also refers that she has been extremely constipated. Upon presenting to the emergency department, she was evaluated, and she was found to be remarkably hypoxemic with saturations down to the 90s, and her blood pressure was 102/64. She was slightly tachycardic, so we have been consulted to evaluate and admit. PAST MEDICAL HISTORY: 1. Remote congestive heart failure. 2. Hypertension. 3. COPD. 4. Diabetes mellitus type 2 with neuropathy. 5. ER positive, NE positive left breast cancer with metastasis to peritoneum. PAST SURGICAL HISTORY: 1. Bilateral tubal ligation. 2. Appendectomy. 3. Ultrasound-guided biopsy of left breast lesion. FAMILY HISTORY: Noncontributory. SOCIAL HISTORY: Patient lives with family. She says she has not smoked since she got discharged in September, but she was smoking almost a pack daily for over 40 years. She denies alcohol or illicit drug use. ALLERGIES: No known drug allergies. MEDICATIONS AT HOME: 1. Amlodipine 10 mg p.o. daily. 2. Metformin 500 b.i.d. 3. Ventolin inhaler. 4. Lisinopril with hydrochlorothiazide. 5. Spiriva inhaler. 6. MiraLAX. 7. Lasix 40 mg p.o. daily. 8. Prednisone 20 mg p.o. daily. 9. Omeprazole 20 mg 20 mg daily. REVIEW OF SYSTEMS: A 14-point review of systems conducted with Ms. Vegas was unremarkable. Ms. Vegas refers that she is not coughing as much as before, that she is just sporadically coughing, and nothing is really coming up. She denies any fever. She denies any chills. She denies any sputum production. She refers not to have had a bowel movement for some time. No syncopal episode. No headaches. PHYSICAL EXAMINATION: VITAL SIGNS: Blood pressure is 107/68, pulse is 106, respirations 32, saturation is 93% on 2 L of nasal cannula. GENERAL: Ms. Vegas is a 68-year-old female. She is in bed. She does not seem to be in any cardiopulmonary distress. HEENT: Mucosa is pink, slightly dry. Anicteric. Acyanotic. NECK: Supple. I do not see any JVD. Head is normocephalic and atraumatic. RESPIRATORY: Air entry is bilaterally reduced, but I do not hear any wheezing or rhonchi. A few distant crackles in the posterior lung marques in inspiration. CARDIOVASCULAR: Regular rate and rhythm. There are no murmurs, no rubs, no gallops. Roosevelt beat is at 5th intercostal space, midclavicular line. GI: Abdomen is soft. It is distended. There is a supraumbilical hernia palpated. There is no hepatosplenomegaly, but the whole abdomen feels full with mild dullness to percussion everywhere, but no tenderness and no rebound. No guarding. Bowel sounds are present but remarkably hypoactive. EXTREMITIES: No pedal edema. Distal pulses are present. CERTIFIED FORKLIFT OPERATOR: Patient is awake, alert, oriented x4. Motor is 5/5 in all extremities. Sensation is intact. Cranial nerves II-XII have been grossly examined and are unremarkable. PSYCHIATRIC: The patient is very cooperative. Has very good insight and judgment. BREASTS: The left breast still has an adherent mass in the upper lateral quadrant. There is a scar over the mass, but no changes of the overlying skin. SKIN: LABORATORY DATA: WBCs 11.4. The rest of CBC is unremarkable. Chemistry is also reviewed. Creatinine is up to 2.9 from 1.3 the last admission. A chest x-ray this morning shows atelectasis, right lower lobe, versus pneumonia. ASSESSMENT/PLAN: 1. Intractable nausea and vomiting associated with epigastric pain. The patient will be kept n.p.o.. Hydrate her overnight. Treat more symptomatically and re-evaluate her in the morning. 2. Distended abdomen with suspicion of underlying constipation. We will get a KUB and start the patient on a bowel regimen. 3. Bilateral lower lobe atelectasis versus pneumonia. Will start the patient on broad-spectrum antibiotics. Will check on her blood cultures, sputum culture if we can get some, and re- evaluate her with a CT scan just to give us a better idea of the lung parenchyma. 4. Acute hypoxemic respiratory failure, presumably from pneumonia/atelectasis. The patient is currently on nasal cannula for oxygen supplement. 5. Acute on chronic renal failure. Creatinine has gone up to 2.9 from 1.3 ,which was the last discharge creatinine. For now I have withheld her hydrochlorothiazide with lisinopril as well as her Lasix. She looks slightly volume depleted, so we are going to hydrate her gently overnight and re-evaluate her in the morning and go from there. 6. History of stage IV metastatic left breast cancer ER positive, NE positive with metastases to peritoneum. The patient did have ascites and was drained in last July. Cytology from the peritoneal fluid is positive for metastatic breast cancer. She follows up with Dr. Gold, and there is a plan to start adjuvant therapy soon. 7. I have discussed my findings as well as the plan with the patient, and she voiced understanding. cc: MD SIL Mckeon
[2019-10-25] MEDS: ZOFRAN IV PRN (22:06)
[2019-10-25] MEDS: NORCO-7.5 PO SCH (22:06)
[2019-10-25] MEDS: LACTULOSE PO SCH (22:07)
[2019-10-26] MEDS: ZOSYN 4.5 GM in NS 100 ML IV SCH ×4 (00:44→22:01)
[2019-10-26] MEDS: NORCO-7.5 PO SCH ×2 (00:45→04:10)
--- NOTE | 2019-10-26 01:40 | PROVIDER DOCUMENTATION ---
This chart was entered by Darell Krueger Scribe, acting as scribe for Josh Alonso MD. HPI-Chest Pain - General Chief Complaint: SEPSIS ALERT - D Stated Complaint: PNEUMONIA,VOMITING,CHEST HURTS Time Seen by Provider: 10/25/19 15:48 Source: patient Allergies/Adverse Reactions: Patient Allergies Allergy/AdvReac Type Severity Reaction Status Date / Time No Known Allergies Allergy Verified 10/25/19 17:23 Home Medications: Home Medication List Medication Instructions Recorded Confirmed Last Taken Type Amlodipine [Norvasc] 10 mg PO DAILY 11/25/12 10/25/19 10/25/19 History Metformin [Glucophage] 500 mg PO BID 09/11/14 10/25/19 10/25/19 History Albuterol Sulfate Inhaler 2 puff INH [id number] #0 inhaler 09/15/14 10/25/19 10/25/19 Rx [Ventolin Hfa] Lisinopril/Hydrochlorothiazide 1 each PO DAILY 09/14/16 10/25/19 10/25/19 Hist ory [Lisinopril-Hctz 20-25 mg Tab] Tiotropium [place] Inhaler 18 mcg INHALATION DAILY 09/27/19 10/25/19 10/25/19 History [Spiriva] Furosemide [Lasix] 40 mg PO DAILY #90 tab 10/03/19 10/25/19 10/25/19 Rx Polyethylene Glycol 3350 [Miralax] 17 gm PO DAILY powder, packet 10/03/1910/0810/25/19 Rx Prednisone 20 mg PO DAILY #30 tab 10/03/19 10/25/19 10/25/19 Rx Omeprazole [Prilosec] 2 cap PO DAILY 10/25/19 10/25/19 10/25/19 History - History of Present Illness-CP Nature of Presenting Problem: Pt is a 68 y/o F presents to the ED c/o of chest pain that feels like gas pain and burning for 1 week. She report the pain from her chest goes up into right jaw and arm. She did say she has been treated for Pneumonia recently. She repo rts some vomiting that is brown in color with a coffee ground consistency mixed with mucous.. She says she has been taking Mirlax to help her bowels as well as steroids to help her lungs.. Location: reports: substernal, epigastric Chest Pain Radiation: reports: jaw (right side), arms (right), neck Quality of Pain: reports: burning, fullness Severity in ED: moderate Onset/Duration: 1 week ago Timing: still present Context/Activities at Onset: reports: other (recent hospitalization for PNA) Modifying Factors: worse with: eating Associated Symptoms: reports: abdominal pain, nausea, vomiting. denies: edema, fever/chills, shortness of breath Similar Symptoms Previously?: No Recently Seen Here or By Another Healthcare Provider: No Review of Systems - Adult - REVIEW OF SYSTEMS - ADULT Constitutional: denies: fever Eyes: reports: no symptoms reported. denies: eye pain Ears, Nose, Mouth & Throat: reports: throat pain. denies: ear pain, nose pain Cardiovascular: reports: chest pain. denies: edema Respiratory: reports: shortness of breath. denies: cough Gastrointestinal: reports: abdominal pain, nausea, vomiting Genitourinary: reports: no symptoms reported. denies: dysuria Musculoskeletal: denies: back pain, neck pain Integumentary: reports: no symptoms reported Neurological: reports: no symptoms reported. denies: headache/migraines Psychiatric: reports: no symptoms reported Endocrine: reports: no symptoms reported Hematologic/Lymphatic: reports: no symptoms reported, other (no bleeding) Allergic/Immunologic: reports: no symptoms reported, other (no swelling) Past History - Adult - PAST MEDICAL HISTORY-ADULT Review of Records: reports: Old Records Reviewed, Nursing Assessment Review, Medications Reviewed Major Childhood Illnesses: reports: denies history Cardiovascular: reports: CHF, HTN Respiratory: reports: COPD Gastrointestinal: reports: denies history Obstetrical/Gynecological: reports: denies history Genitourinary: reports: denies history Musculoskeletal: reports: denies history Neurological: reports: denies history Endocrine/Immune: reports: Diabetes Other Conditions: reports: denies history - PRIOR SURGERIES/PROCEDURES Surgical/Procedure History: reports: appendectomy, other (cyst removal ) - IMMUNIZATION STATUS Childhood Immunizations: See Nurse Assessment Flu Vaccine: See Nurse Assessment - FAMILY HISTORY Family History: reviewed, not pertinent - SOCIAL HISTORY Smoking: cigarettes (She says she is quiting) Living Situation: family Physical Exam-General - PHYSICAL EXAM-ADULT Initial Vital Signs Reviewed: Yes - CONSTITUTIONAL General Appearance: alert, mild distress - EYES Eyes: negative: conjuctival exudate, photophobia, sclera injected, scleral icterus - HEAD, EARS, NOSE, MOUTH & THROAT HENMT: normocephalic/atraumatic, moist mucous membranes. negative: pharynx normal, hearing deficit, pharyngeal erythema - NECK Neck: non-tender, supple - RESPIRATORY Respiratory: respiratory distress, decreased breath sounds, crackles, wheezing - CARDIOVASCULAR Cardiovascular: tachycardia. negative: no edema (1+ LE edema) - GASTROINTESTINAL (ABDOMEN) Abdominal Exam: non tender, soft. negative: guarding, rigid - MUSCULOSKELETAL Extremity: non-tender, swelling (1+ LE). negative: deformity - SKIN Integumentary: normal color, warm/dry - NEUROLOGIC Neurologic: grossly normal - PSYCHIATRIC Psych/Mental Status: normal thought content, normal thought process, anxious - HEART Score HEART Score: History: Slightly Suspicious HEART Score: ECG: Normal HEART Score: Age: > or = 65 Years HEART Score: Risk Factors for Atherosclerotic Disease: > or = 3 Risk Factors or History of Atherosclerotic Disease HEART Score: Troponin: 1-3x Normal Limit Total HEART Score:: 5 Progress - PLAN OF CARE/RESULTS Progress/Plan/Lab Results: Vital Signs - 8 hr 10/25/19 18:02 10/25/19 19:40 10/25/19 20:02 Pulse Rate 101 H 99 H 98 H Respiratory Rate 32 H 29 H 27 H Blood Pressure 132/78 113/67 108/71 O2 Sat by Pulse Oximetry 91 L 90 L 93 L Laboratory Results - last 24 hr 10/25/19 10/25/19 10/25/19 15:53 15:53 15:53 WBC 11.40 H RBC 4.62 Hgb 12.6 Hct 40.0 MCV 86.6 MCH 27.3 MCHC 31.5 L RDW Std Deviation 16.0 H Plt Count 354 MPV 9.1 Immature Gran % (Auto) 0.4 Neut % (Auto) 85.6 H Lymph % (Auto) 8.0 L [place] % (Auto) 5.6 Eos % (Auto) 0.0 Baso % (Auto) 0.4 Immature Gran # (Auto) 0.04 Neut # (Auto) 9.76 H Lymph # (Auto) 0.91 L [place] # (Auto) 0.64 H Eos # (Auto) 0.00 Baso # (Auto) 0.05 PT 14.5 INR 1.11 PTT (Actin FS) 29.9 Specimen Type Sample Site pH pCO2 pO2 HCO3 Base Excess Oxyhemoglobin ABG O2 Sat (Calculated) ABG O2 Saturation ABG Carboxyhemoglobin ABG Methemoglobin Giles Test A-a O2 Difference Total Hemoglobin Lactate Liter Flow Blood Gas Modality FiO2 % Sodium 141 Potassium 4.5 Chloride 92 L Carbon Dioxide 24 L Anion Gap 25 BUN 40 H Creatinine 2.9 H Estimated GFR/1.73 m2 20 BUN/Creatinine Ratio 14 Glucose 153 H Calculated Osmolality 294 Calcium 9.5 Total Bilirubin 0.38 AST 15 ALT 12 Alkaline Phosphatase 92 Creatine Kinase 33 Troponin T High Sens Waz-[id number]-Igxlutbvrvt Pept Total Protein 6.3 Albumin 3.7 Globulin 2.6 Albumin/Globulin Ratio 1.4 Plasma Lactate Urine Source Urine Color Urine Turbidity Urine pH Ur Specific [place] Urine Protein Ur Glucose (Stick) Ur Ketones (Stick) Urine Blood Urine Nitrite Urine Bilirubin Urobilinogen Dipstick Urine Leukocytes Urine WBC (Auto) Urine RBC (Auto) U Epithel Cells (Auto) Urine Bacteria (Auto) 10/25/19 10/25/19 10/25/19 15:53 15:53 15:53 WBC RBC Hgb Hct MCV MCH MCHC RDW Std Deviation Plt Count MPV Immature Gran % (Auto) Neut % (Auto) Lymph % (Auto) [place] % (Auto) Eos % (Auto) Baso % (Auto) Immature Gran # (Auto) Neut # (Auto) Lymph # (Auto) [place] # (Auto) Eos # (Auto) Baso # (Auto) PT INR PTT (Actin FS) Specimen Type Sample Site pH pCO2 pO2 HCO3 Base Excess Oxyhemoglobin ABG O2 Sat (Calculated) ABG O2 Saturation ABG Carboxyhemoglobin ABG Methemoglobin Giles Test A-a O2 Difference Total Hemoglobin Lactate Liter Flow Blood Gas Modality FiO2 % Sodium Potassium Chloride Carbon Dioxide Anion Gap BUN Creatinine Estimated GFR/1.73 m2 BUN/Creatinine Ratio Glucose Calculated Osmolality Calcium Total Bilirubin AST ALT Alkaline Phosphatase Creatine Kinase Troponin T High Sens 31 H Evj-E-Zcweokotnhw Pept 1116 H Total Protein Albumin Globulin Albumin/Globulin Ratio Plasma Lactate 2.1 Urine Source Urine Color Urine Turbidity Urine pH Ur Specific [place] Urine Protein Ur Glucose (Stick) Ur Ketones (Stick) Urine Blood Urine Nitrite Urine Bilirubin Urobilinogen Dipstick Urine Leukocytes Urine WBC (Auto) Urine RBC (Auto) U Epithel Cells (Auto) Urine Bacteria (Auto) 10/25/19 10/25/19 10/25/19 16:30 18:06 18:10 WBC RBC Hgb Hct MCV MCH MCHC RDW Std Deviation Plt Count MPV Immature Gran % (Auto) Neut % (Auto) Lymph % (Auto) [place] % (Auto) Eos % (Auto) Baso % (Auto) Immature Gran # (Auto) Neut # (Auto) Lymph # (Auto) [place] # (Auto) Eos # (Auto) Baso # (Auto) PT INR PTT (Actin FS) Specimen Type ARTERIAL Sample Site R RADIAL pH 7.55 H pCO2 30 L pO2 67 HCO3 28.2 H Base Excess 4.3 H Oxyhemoglobin 92.0 L ABG O2 Sat (Calculated) 16.1 ABG O2 Saturation 97.8 ABG Carboxyhemoglobin 5.50 H* ABG Methemoglobin 0.4 Giles Test YES A-a O2 Difference 95.0 Total Hemoglobin 12.4 Lactate 2.20 Liter Flow 2.0 Blood Gas Modality CANNULA FiO2 % 28.0 Sodium Potassium Chloride Carbon Dioxide Anion Gap BUN Creatinine Estimated GFR/1.73 m2 BUN/Creatinine Ratio Glucose Calculated Osmolality Calcium Total Bilirubin AST ALT Alkaline Phosphatase Creatine Kinase Troponin T High Sens 34 H Cyf-C-Bodapvpyhie Pept Total Protein Albumin Globulin Albumin/Globulin Ratio Plasma Lactate Urine Source CLEAN CATCH Urine Color YELLOW Urine Turbidity CLEAR Urine pH 6.0 Ur Specific [place] 1.022 Urine Protein TRACE A Ur Glucose (Stick) NEGATIVE Ur Ketones (Stick) 40 A Urine Blood NEGATIVE Urine Nitrite NEGATIVE Urine Bilirubin SMALL A Urobilinogen Dipstick 2 A Urine Leukocytes NEGATIVE Urine WBC (Auto) <10 Urine RBC (Auto) <10 U Epithel Cells (Auto) <10 Urine Bacteria (Auto) NEGATIVE 10/25/19 19:52 WBC RBC Hgb Hct MCV MCH MCHC RDW Std Deviation Plt Count MPV Immature Gran % (Auto) Neut % (Auto) Lymph % (Auto) [place] % (Auto) Eos % (Auto) Baso % (Auto) Immature Gran # (Auto) Neut # (Auto) Lymph # (Auto) [place] # (Auto) Eos # (Auto) Baso # (Auto) PT INR PTT (Actin FS) Specimen Type Sample Site pH pCO2 pO2 HCO3 Base Excess Oxyhemoglobin ABG O2 Sat (Calculated) ABG O2 Saturation ABG Carboxyhemoglobin ABG Methemoglobin Giles Test A-a O2 Difference Total Hemoglobin Lactate Liter Flow Blood Gas Modality FiO2 % Sodium Potassium Chloride Carbon Dioxide Anion Gap BUN Creatinine Estimated GFR/1.73 m2 BUN/Creatinine Ratio Glucose Calculated Osmolality Calcium Total Bilirubin AST ALT Alkaline Phosphatase Creatine Kinase Troponin T High Sens Cve-L-Fhbnciejhkm Pept Total Protein Albumin Globulin Albumin/Globulin Ratio Plasma Lactate 2.1 Urine Source Urine Color Urine Turbidity Urine pH Ur Specific [place] Urine Protein Ur Glucose (Stick) Ur Ketones (Stick) Urine Blood Urine Nitrite Urine Bilirubin Urobilinogen Dipstick Urine Leukocytes Urine WBC (Auto) Urine RBC (Auto) U Epithel Cells (Auto) Urine Bacteria (Auto) Orders Category Date Time Status [facility]mit [facility] Routine AdmDCTranf 10/25/19 18:29 Active Activity - Up with Assistance ORDERED Care 10/25/19 18:29 Active Cardiac Monitoring DIRECTED Care 10/25/19 15:47 Completed IV Insertion ORDERED Care 10/25/19 15:47 Active Intake and Output-Strict ORDERED Care 10/25/19 18:29 Active Notify MD of + Sepsis Screen NOW Care 10/25/19 15:47 Active Vital Signs Order Q 8-HR ASSESS Care 10/25/19 18:29 Active Z-Document. for Tele Applied ORDERED Care 10/25/19 18:30 Active Social Service Consult Routine Cons 10/25/19 18:29 Active NPO Diet 10/25/19 18:30 Active CHEST-1 VIEW [RAD] Stat Exams 10/25/19 15:[address] THORAX W/O CONTRAST [CT] Urgent Exams 10/25/19 18:28 Completed KUB ABDOMEN [RAD] Stat Exams 10/25/19 18:28 Completed ABG [RESP] Routine Lab 10/25/19 16:30 Completed BLOOD CULTURE [BLDCUL] Stat Lab 10/25/19 15:32 Results BNP [PRO B-NATRIURETIC PEPTIDE] Stat Lab 10/25/19 15:53 Completed CBC WITH DIFF [HEME] Routine Lab 10/26/19 06:00 Ordered CBC WITH DIFF [HEME] Stat Lab 10/25/19 15:53 Completed CK PROFILE [SP CHEM] Stat Lab 10/25/19 15:53 Completed COMPREHENSIVE METABOLIC PANEL [CHEM] Routine Lab 10/26/19 06:00 Ordered COMPREHENSIVE METABOLIC PANEL [CHEM] Stat Lab 10/25/19 15:53 Completed LACTATE, PLASMA [CHEM] Lab 10/25/19 01:10 Received LACTATE, PLASMA [CHEM] Lab 10/25/19 19:52 Completed LACTATE, PLASMA [CHEM] Q3H Lab 10/25/19 15:53 Completed PROCALCITONIN [LAYNE] Routine Lab 10/25/19 18:10 Received PROTIME WITH INR [COAG] Routine Lab 10/26/19 06:00 Ordered PROTIME WITH INR [COAG] Stat Lab 10/25/19 15:53 Completed PTT [COAG] Stat Lab 10/25/19 15:53 Completed TROPONIN T HIGH SENSITIVITY Stat Lab 10/25/19 15:53 Completed TROPONIN T HIGH SENSITIVITY Stat Lab 10/25/19 18:10 Completed TSH Routine Lab 10/26/19 06:00 Ordered URINALYSIS W/POSS RFLX CULT [URINALYSIS] Stat Lab 10/25/19 18:06 Completed 0.9% Sodium Chloride Inj [Ns] 1,000 ml Med 10/25/19 18:30 Active IV 75 mls/hr 0.9% Sodium Chloride Inj [Ns] 1,000 ml Med 10/25/19 16:40 Discontinued IV 999 mls/hr Amlodipine [Norvasc] Med 10/26/19 09:00 Active 10 mg PO DAILY Heparin Med 10/25/19 18:30 Active 5,000 unit SUBQ Q12H Hydrocodone/APAP 7.5 mg/325 mg [[place]-7.5] Med 10/25/19 21:00 Active See Dose Instructions PO Q4HR Lactulose Med 10/25/19 21:00 Active 30 ml PO BID Lido/[place] Alk/Al&mg Hydrox [G.i. Cocktail] Med 10/25/19 16:03 Discontinued 30 ml PO NOW ONE Linezolid 600 mg/D5w [Zyvox 600 mg/D5w] Med 10/25/19 19:00 Active 600 mg in 300 ml IV Q12H Morphine Med 10/25/19 17:22 Discontinued 2 mg IV NOW ONE Omeprazole [Prilosec] Med 10/26/19 09:00 Discontinued 40 mg PO DAILY Ondansetron [Zofran] Med 10/25/19 16:03 Discontinued 4 mg IV NOW ONE Ondansetron [Zofran] Med 10/25/19 18:29 Active 4 mg IV Q4H PRN PRN Pantoprazole [Protonix] Med 10/25/19 19:08 Discontinued 40 mg IV NOW ONE Pantoprazole [Protonix] Med 10/26/19 09:00 Active 40 mg IV Q24H Piperacillin/Tazobactam [Zosyn] 4.5 gm Med 10/25/19 17:00 Active 0.9% Sodium Chloride Inj [Ns] 100 ml IV Q6H Polyethylene Glycol 3350 [Miralax] Med 10/26/19 09:00 Active 17 gm PO DAILY Sodium Chloride 0.9% Med 10/25/19 19:15 Active 10 ml INJ DIRECTED Sodium Chloride 0.9% Med 10/25/19 19:08 Discontinued 10 ml INJ NOW ONE Vancomycin 1 gm/Ns Med 10/25/19 16:56 Discontinued 1 gm in 250 ml IV NOW Oxygen Device Stat Oth 10/25/19 15:47 Completed Telemetry [OM.EQ] Routine Oth 10/25/19 18:29 Active EKG [EKG] Stat Ther 10/25/19 16:00 Draft Physical Therapy Eval/Treatment [OM.PT] Routine Ther 10/25/19 18:29 Active Transfer/Admit Order [TRANSFER] Routine Transfer 10/25/19 18:56 Completed Hosptialist has been paged two time for an admission as of 1745. Result Diagrams: 10/25/19 15:53 10/25/19 15:53 - REASSESSMENT Reassessment #1 Time Reassessed: 16:22 Status: other (Scribe note updated and reviewed.) Reassessment #2 Status: other (Patient with possible PNA as well as elevated BNP much above previous, will plan for admission for new onset heart failure and pneumonia. Discussed with the hospitalist who has accepted the patient.) - EKG 1 Time of EKG reading by physician:: 16:04 EKG Read and Signed by:: Josh Alonso EKG Interpretation (*Must complete 3 of following elements*): Abnormal Rate: 106 Rhythm: Sinus Tach Comments: otherwise normal ECG - XRAY 1 XRAY Study: Chest Impression: Abnormal (EXAM: CHEST-1 VIEW 10/25/2019 HISTORY: sob, cp TECHNIQUE: Erect AP portable at 1557 COMMENT: There is atelectasis versus pneumonia in the right lower lobe. The left lower lobe is clearer than on the previous study of 09/30/2019. IMPRESSION: Atelectasis right lower lobe. Electronically signed by Dominik Alberts 10/25/2019 4:02 PM), See EMR Report Departure - Departure Date of Disposition Decision: 10/26/19 Time of Disposition Decision: 18:29 DIAGNOSIS: Heart failure Qualifiers: Heart failure type: other Qualified Code(s): I50.89 - Other heart failure; I50.8 - Other heart failure Pneumonia Qualifiers: Pneumonia type: due to unspecified organism Laterality: right Lung location: lower lobe of lung Qualified Code(s): J18.1 - Lobar pneumonia, unspecified organism Disposition: ADMITTED INPATIENT 09 Certified Medical Emergency: Emergent Condition: Fair - Critical Care Note This patient required my direct & personal management of CC.: No Attestation - Physician/ BRITNEY Attestation Patient care was provided by Advanced Practice Provider:: No The physician spent face to face time with patient:: Yes Advanced Practice Provider documentation review:: Supervising physician onsite and consulted in the evaluation and care of this patient. The physician did have a face to face encounter with the patient. This chart was documented by the indicated scribe, (Darell Krueger Scribe) and accurately reflects the services I performed and decisions made by me, Josh Alonso MD, as attested by the provider's signature.
[2019-10-26 08:27] LABS: INR 1.17; PROTIME 15.1 Seconds (11.0-16.0)
[2019-10-26 08:37] LABS: ALB/GLOB RATIO 1.2; ALBUMIN 3.1 g/dL (3.5-5.0); CALCIUM 8.9 mg/dL (8.8-10.2); CREATININE 3.2 mg/dL (0.5-0.9); POTASSIUM 3.9 mmol/L (3.5-5.1); TOTAL BILIRUBIN 0.4 mg/dL (0.20-1.00); TOTAL PROTEIN 5.6 g/dL (6.3-8.3)
[2019-10-26 08:47] LABS: BASO# 0.02 X1000 (0.0-0.2); BASO% 0.2 % (0.0-0.8); EOS# 0.07 X1000 (0.0-0.7); EOS% 0.8 % (0.0-10.0); HEMOGLOBIN 10.6 g/dL (12.0-16.0); IMM GRAN# 0.05 X1000 (0.0-0.04); IMM GRAN% 0.5 % (0.0-0.5); LYMPH# 1.74 X1000 (1.2-3.4); MCH 26.9 PG (27-31); MCHC 30.3 g/dL (33-37); MCV 88.8 FL (81-99); MONO# 1.31 X1000 (0.11-0.59); MONO% 14.3 % (1.7-9.3); MPV 9.5 FL (7.4-10.4); NEUT# 5.96 X1000 (1.4-6.5); NEUT% 65.2 % (42.2-75.2); PLT 336 X1000 (130-400); RBC 3.94 XMIL (4.2-5.4); WBC 9.15 X1000 (4.8-10.8)
[2019-10-26] MEDS ORDERED: NS 1,000 ML IV ONE (08:53)
[2019-10-26] MEDS ORDERED: PRILOSEC PO SCH (09:00)
[2019-10-26] MEDS ORDERED: NORVASC PO SCH (09:00)
[2019-10-26] MEDS: PROTONIX IV SCH (09:21)
[2019-10-26] MEDS: MIRALAX PO SCH (09:21)
[2019-10-26] MEDS: LACTULOSE PO SCH ×2 (09:21→22:01)
[2019-10-26] MEDS: ZYVOX 600 MG/D5W 600 MG/300 ML IVPB IV SCH ×2 (09:22→23:08)
[2019-10-26] MEDS: HEPARIN SUBQ SCH ×2 (09:22→22:01)
[2019-10-26] MEDS: SODIUM CHLORIDE 0.9% INJ SCH (09:22)
[2019-10-26] MEDS: NS 1,000 ML IV SCH (09:28)
[2019-10-26 11:39] LABS: UR CREAT RANDOM 206.7 mg/dL (11-20)
[2019-10-26] MEDS: CARAFATE LIQUID PO SCH ×2 (13:02→22:04)
[2019-10-26] MEDS: ZOFRAN IV PRN ×2 (13:02→22:00)
--- NOTE | 2019-10-26 13:48 | PROGRESS NOTE ---
DATE: 10/26/2019 SUBJECTIVE: This morning, Ms. Vegas refers to be doing a whole lot better. She said the chest discomfort and the burning sensation are all resolved. However, early on, I was called by the nurse that Ms. Vegas's blood pressures have been on the lower side. She remains completely asymptomatic. OBJECTIVE: Vital Signs: Blood pressure is 87/47, pulse of 74, respirations are 18, temperature is 97.3 degrees. When I came in and rechecked the blood pressure manually myself, I got 92/60, which is still low. On current physical examination, Ms. Vegas is a 68-year-old, -[place] female. She was in bed. No distress. HEENT: Mucosa is pink but still dry. Anicteric. Acyanotic. Neck: Supple. Chest: There was good air entry bilaterally. No crepitations. No rhonchi. Cardiovascular: Regular rate and rhythm. No murmurs. GI: Abdomen was soft. There is a supraumbilical ventral hernia. No hepatosplenomegaly. Extremities: No pedal edema. Distal pulses are present. TURKEY PICKER: The patient is awake, alert, and oriented. Left breast has an adherent mass in the upper lateral quadrant. Laboratory Data: WBC is down to 9.15, hemoglobin is 10.6, platelet count of 336,000. Chemistry is also reviewed. Patient's BUN is up to 48, creatinine is 3.2. So far, blood cultures are still pending. TSH is within normal range. Imaging Studies: A CT scan of the chest yesterday showed a hiatal hernia with reflux and possible retained food particles in the upper esophagus. There were also bilateral pleural effusions. There was atelectasis versus pneumonia in the lung bases, particularly in the right. Possibility of aspiration could not be excluded. ASSESSMENT: 1. Acute hypoxemic respiratory failure on presentation, most likely from aspiration pneumonia, improved. Patient is currently on 2.5 L of nasal cannula and she is saturating 96%, which is a remarkable improvement from yesterday when she was in 90 and 91. 2. Intractable nausea and vomiting with epigastric pain secondary to a hiatal hernia with reflux esophagitis. The patient is on a proton pump inhibitor and Carafate started this morning. She refers to be feeling a lot better. 3. Constipation. We will continue addressing with bowel regimen. 4. Acute on chronic renal failure. I think the etiology is multifactorial. Patient was on BARB inhibitor, hydrochlorothiazide, and furosemide. All the medications have been withheld. She also looks slightly dry. We are going to continue hydration. Creatinine has gone up some this morning. However, her fraction excretion of BUN is 13.6 and fraction excretion of sodium is 0.6. Both indices are suggestive of intravascular depletion. We will continue with the current fluids and we will withhold any possible nephrotoxin. Ultrasound of the kidneys has been ordered. If patient's creatinine continues to worsen, we will involve nephrology. 5. Hypotension. I think this is a combination of medications and intravascular depletion. Blood pressure medications have been withheld. We have also withheld her V[place] and we will gently hydrate her overnight and reevaluate her in the morning. 6. 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 The patient follows up with Dr. Gold. PLAN: In general, I think Ms. Vegas looks clinically better. She refers that the epigastric discomfort is all improved. We are going to start her on a full liquid diet and see if she is tolerating that. Her creatinine bumped up slightly this morning. We withheld all her possible home medications with potential to affect the kidneys. We are hydrating her overnight and we will reevaluate her in the morning. As I said, if her creatinine worsens, then we will involve nephrology tomorrow. cc: Mark Barnes MD
--- NOTE | 2019-10-26 18:46 | Diag Imaging Result Doc PS360 ---
EXAM: US RENAL 2 (RETROPER) COMPLETE 10/26/2019 HISTORY: isabella/arf TECHNIQUE: Renal ultrasound COMMENT: The kidneys are without evidence of hydronephrosis or mass. There is ascites in both lower quadrants. The urinary bladder is apparently empty. The right kidney is 7 x 4.5 x 4 cm the left is 9.8 x 4.8 x 5 cm. IMPRESSION: Renal atrophy worse on the right than the left. No evidence of obstructive uropathy. Ascites. Electronically signed by Dominik Alberts 10/26/2019 6:43 PM
[2019-10-26] MEDS: TYLENOL PO PRN (22:00)
[2019-10-27] MEDS: ZOSYN 4.5 GM in NS 100 ML IV SCH ×3 (02:23→14:50)
[2019-10-27] MEDS: TYLENOL PO PRN ×2 (04:03→21:05)
[2019-10-27 08:14] LABS: HEMATOCRIT 31.2 % (37.0-47.0); HEMOGLOBIN 9.6 g/dL (12.0-16.0); MCH 27.8 PG (27-31); MCHC 30.8 g/dL (33-37); MCV 90.4 FL (81-99); MPV 9.5 FL (7.4-10.4); RBC 3.45 XMIL (4.2-5.4); RDW 16.1 % (11.5-14.5); WBC 6.89 X1000 (4.8-10.8)
[2019-10-27] MEDS: PROTONIX IV SCH (08:28)
[2019-10-27] MEDS: CARAFATE LIQUID PO SCH ×2 (08:28→20:13)
[2019-10-27] MEDS: SODIUM CHLORIDE 0.9% INJ SCH (08:28)
[2019-10-27] MEDS: HEPARIN SUBQ SCH ×2 (08:28→20:13)
[2019-10-27] MEDS: MIRALAX PO SCH (08:29)
[2019-10-27] MEDS: LACTULOSE PO SCH (08:29)
[2019-10-27 08:34] LABS: CREATININE 3.2 mg/dL (0.5-0.9); MAGNESIUM 1.8 mg/dL (1.5-2.7); PHOSPHORUS 3.5 mg/dL (2.7-4.5); POTASSIUM 3.7 mmol/L (3.5-5.1)
[2019-10-27] MEDS: ZYVOX 600 MG/D5W 600 MG/300 ML IVPB IV SCH ×2 (08:46→20:12)
[2019-10-27] MEDS ORDERED: DUONEB (A & A) INH PRN (13:10)
[2019-10-27] MEDS ORDERED: LEVOPHED 8 MG in D5 1/2 NS 250 ML IV SCH (13:15)
[2019-10-27] MEDS: NS 1,000 ML IV SCH ×2 (14:27→20:13)
[2019-10-27] MEDS: DUONEB (A & A) INH SCH ×2 (16:19→19:47)
--- NOTE | 2019-10-27 16:48 | PROGRESS NOTE ---
DATE: 10/27/2019 SUBJECTIVE: Even though this patient states that she is feeling a little bit better her blood pressure has been low. When I evaluated this patient around noon. Her blood pressure was 78/41. Since she has a source of infection, probably aspiration pneumonia on the right side mostly, she came in with leukocytosis and tachycardic. Probably this patient is septic with septic shock, but on the other hand, she has been having issues with fluid overload and acute kidney injury on chronic kidney disease, so I will transfer this patient to the ICU and put her on vasopressors, she has been placed on a liquid diet and it looks like she is tolerating it at this moment. She was really constipated, but she had a really good bowel movement after placing this patient on lactulose. I will decrease the dose of the Zosyn because of her kidney dysfunction. I will continue with Zyvox. I will check her cortisol level tomorrow morning, it looks like she was on prednisone at home for a short period of time, but I am not quite sure about it. She has been complaining though of epigastric calcium with severe burning sensation in the middle of the chest that is getting better with Carafate and Protonix IV. OBJECTIVE: Vital Signs: Temperature 97.7 degrees, pulse at this moment 83, respiratory rate 20, blood pressure 91/50 with a MAP of 57, oxygen saturation 96 on 3 L of nasal cannula. HEENT: Head normocephalic. No trauma. PERRLA. Neck: Supple. No JVD. No masses. Central trachea. Chest: Decreased breath sounds globally with some crepitus at the bases, especially on the left side base and some rhonchi scattered. Cardiovascular: Regular rate and rhythm. Abdomen: Soft, nontender, nondistended. No hepatosplenomegaly. Extremities: She has some edema. No clubbing. No cyanosis. Neurological: The patient is awake, alert. She is oriented x3. No focal neurological deficits. LABORATORY: WBC 6.8, hemoglobin 9.6, hematocrit 31.2, platelets 270,000. Sodium 144, potassium 3.7, chloride 101, bicarbonate 27, BUN 46, creatinine 3.2, glucose 80, calcium 9, phosphorus 3.5, magnesium 1.8, albumin 3.0. ASSESSMENT AND PLAN: 1. Acute hypoxemic respiratory failure on presentation, likely due to pneumonia, some fluid overload as well, aspiration pneumonia is a possibility, especially on the right side, I will continue with broad-spectrum antibiotics. I will continue with oxygen supplementation. She is tolerating nasal cannula. 2. Sepsis due to bilateral lower lobe pneumonia, especially on the right side, probably due to aspiration pneumonia, this is better. White blood cell count is improving, but the problem is that this patient is having low blood pressures, so probably this patient has septic shock. I will continue with gentle IV fluids since this patient is overloaded and has an acute kidney injury. I will hold all the blood pressure medication as well as diuretics, she will be placed on vasopressors to keep the MAP above 65. 3. Bilateral lower lobe pneumonia, especially on the right side, probably due to aspiration pneumonia, as above. 4. Constipation, resolved. Continue with the same bowel regimen. 5. Acute on chronic renal failure, probably this is multifactorial. We have stopped the treatment that she was getting at home, including BARB inhibitors, hydrochlorothiazide and furosemide, on top of that her blood pressure has been low so we will monitor this closely. We will avoid nephrotoxic medications. 6. Metastatic left breast cancer, ER positive, [place] positive with metastasis to the peritoneum, followed by Dr. Gold. Overall this patient seems to be feeling better, but her blood pressure has been dropping, so we will transfer this patient to the ICU. I will get a cortisol level in the morning since she has been getting some steroids at home, but I am not quite sure how long she has been doing that. Her kidney ultrasound showed some renal atrophy, especially in the right side. We will put this patient on pressors and I will get Nephrology Department if the kidney function gets worse. cc: Abram Washburn MD
[2019-10-27] MEDS: ZOSYN 2.25 GM in NS 50 ML IV SCH ×2 (20:13→21:52)
[2019-10-28] MEDS: DUONEB (A & A) INH SCH ×6 (02:08→23:54)
[2019-10-28] MEDS: TYLENOL PO PRN ×2 (03:28→22:33)
[2019-10-28] MEDS: ZOSYN 2.25 GM in NS 50 ML IV SCH ×5 (03:28→22:33)
[2019-10-28] MEDS ORDERED: LASIX IV ONE (06:25)
[2019-10-28 06:43] LABS: BASO# 0.03 X1000 (0.0-0.2); BASO% 0.5 % (0.0-0.8); EOS# 0.16 X1000 (0.0-0.7); EOS% 2.5 % (0.0-10.0); HEMATOCRIT 30.2 % (37.0-47.0); HEMOGLOBIN 9.2 g/dL (12.0-16.0); IMM GRAN# 0.04 X1000 (0.0-0.04); IMM GRAN% 0.6 % (0.0-0.5); LYMPH# 1.04 X1000 (1.2-3.4); LYMPH% 16.4 % (20.5-51.1); MCH 27.5 PG (27-31); MCHC 30.5 g/dL (33-37); MCV 90.1 FL (81-99); MONO# 0.98 X1000 (0.11-0.59); MONO% 15.5 % (1.7-9.3); MPV 9.4 FL (7.4-10.4); NEUT# 4.09 X1000 (1.4-6.5); NEUT% 64.5 % (42.2-75.2); PLT 269 X1000 (130-400); RBC 3.35 XMIL (4.2-5.4); RDW 15.7 % (11.5-14.5); WBC 6.34 X1000 (4.8-10.8)
[2019-10-28 07:18] LABS: ALB/GLOB RATIO 1.3; ALBUMIN 2.9 g/dL (3.5-5.0); CALCIUM 8.3 mg/dL (8.8-10.2); CREATININE 2.6 mg/dL (0.5-0.9); POTASSIUM 3.7 mmol/L (3.5-5.1); TOTAL BILIRUBIN 0.32 mg/dL (0.20-1.00); TOTAL PROTEIN 5.2 g/dL (6.3-8.3)
--- NOTE | 2019-10-28 07:31 | Diag Imaging Result Doc PS360 ---
EXAM: CHEST-PORTABLE INDICATION: dyspnea TECHNIQUE: One view COMPARISON: 10/25/2019 FINDINGS: Bibasilar infiltrates indicating edema +/- pneumonia appears slightly more dense. There appears to have been development of small pleural effusions. No other new consolidation is identified. Cardiac silhouette is stable. IMPRESSION: Interval slight worsening of bibasilar infiltrates and development of small effusions. Electronically signed by Christopher Ocampo 10/28/2019 7:28 AM
--- NOTE | 2019-10-28 07:43 | PROGRESS NOTE ---
DATE: 10/28/2019 SUBJECTIVE: When I evaluated this patient, she was resting comfortably in bed. She is not on pressors at this moment and I believe they never put this patient on vasopressors. Her blood pressure looks better today compared with yesterday. Yesterday around noon, her blood pressure was 78/41, it has been mostly between the 80s and 110s. CBC looks stable. We will wait for CMP and electrolytes. OBJECTIVE: Vital Signs: Temperature 98.4 degrees, pulse 68, respiratory rate 18, blood pressure 140/85, oxygen saturation 93 on 3 L of nasal cannula. HEENT: Head normocephalic. No trauma. PERRLA. Neck: Supple. No JVD. No masses. Central trachea. Chest: Decreased breath sounds globally with some crepitus at the bases, especially on the left side base and some rhonchi scattered. Cardiovascular: Regular rate and rhythm. Abdomen: Soft, nontender, nondistended. No hepatosplenomegaly. Extremities: She has some edema. No clubbing, no cyanosis. Neurological: The patient is awake, alert, she is oriented. No focal deficits. LABORATORY DATA: WBC 6.3, hemoglobin 9.2, hematocrit 30.2, platelets 269,000. Pending CMP. ASSESSMENT AND PLAN: 1. Acute hypoxemic respiratory failure likely due to pneumonia and fluid overload. Aspiration pneumonia is a possibility, especially on the right side. I will continue with broad-spectrum antibiotics. White blood cell count normalized. I will continue with oxygen supplementation. She is tolerating the nasal cannula. For her fluid overload, I will stop the IV fluids right now since her blood pressure has been more stable and I will give her a dose of Lasix, pending lab work at this moment. 2. Sepsis due to bilateral lower lobe pneumonia, especially on the right side, probably due to aspiration pneumonia. White blood cell count seems to be improving. The problem was that this patient's blood pressure yesterday was really low in the 70s around noon, I send this patient to the ICU to get some vasopressors but the blood pressure has been stable even without the treatment. 3. Bilateral lower lobe pneumonia, especially on the right side, as above. 4. Constipation, resolved. 5. Acute on chronic renal failure, likely this is multifactorial due to medications and low blood pressure. I will hold the BARB inhibitors and hydrochlorothiazide. For her fluid overload, I will need to start this patient on Lasix to see how she does. 6. Pulmonary edema and fluid overload. I will give her a single dose of Lasix right now to see how she does. Pending CMP. 7. Metastatic left breast cancer, apparently metastasis to the peritoneum, followed by Dr. Gold. 8. Disposition. Overall, this patient's blood pressure seems to be more stable. I will wait for the CMP to make any decision. For now, I will stop the IV fluids. She has been tolerating a little bit of food, she has been having bowel movements. I will advance her diet to a GI soft diet to see how she does. cc: Abram Washburn MD
[2019-10-28] MEDS: HEPARIN SUBQ SCH ×2 (08:25→20:49)
[2019-10-28] MEDS: PROTONIX IV SCH (08:25)
[2019-10-28] MEDS: ZYVOX 600 MG/D5W 600 MG/300 ML IVPB IV SCH ×2 (08:26→20:48)
[2019-10-28] MEDS: CARAFATE LIQUID PO SCH ×2 (08:26→20:49)
[2019-10-28] MEDS: MIRALAX PO SCH (08:26)
[2019-10-28] MEDS: SODIUM CHLORIDE 0.9% INJ SCH (08:26)
[2019-10-28] MEDS: ZOFRAN IV PRN (18:35)
[2019-10-29] MEDS: ZOSYN 2.25 GM in NS 50 ML IV SCH ×4 (03:46→21:56)
[2019-10-29] MEDS: DUONEB (A & A) INH SCH ×6 (04:01→23:23)
--- NOTE | 2019-10-29 07:32 | Diag Imaging Result Doc PS360 ---
CHEST-PORTABLE - 10/29/2019 INDICATION: dyspnea COMPARISON: 10/28/2019 FINDINGS: There is stable infiltrate at the right lower lobe. There has been resolution of the left lower lobe infiltrate or atelectasis. Heart size is normal. Pulmonary vascularity is normal. No pneumothorax or pleural effusion. IMPRESSION: Resolution of the left basilar infiltrate. Persistent right lower lobe pneumonia. Electronically signed by Foreign Taylor 10/29/2019 7:29 AM
[2019-10-29 07:38] LABS: BASO# 0.03 X1000 (0.0-0.2); BASO% 0.4 % (0.0-0.8); EOS# 0.13 X1000 (0.0-0.7); EOS% 1.7 % (0.0-10.0); HEMATOCRIT 33.6 % (37.0-47.0); HEMOGLOBIN 10.2 g/dL (12.0-16.0); IMM GRAN# 0.04 X1000 (0.0-0.04); IMM GRAN% 0.5 % (0.0-0.5); LYMPH# 1.55 X1000 (1.2-3.4); LYMPH% 20.7 % (20.5-51.1); MCH 27.1 PG (27-31); MCHC 30.4 g/dL (33-37); MCV 89.1 FL (81-99); MPV 9.2 FL (7.4-10.4); NEUT# 4.85 X1000 (1.4-6.5); NEUT% 64.7 % (42.2-75.2); PLT 304 X1000 (130-400); RBC 3.77 XMIL (4.2-5.4); RDW 15.9 % (11.5-14.5)
[2019-10-29 08:13] LABS: ALB/GLOB RATIO 1.2; ALBUMIN 3.1 g/dL (3.5-5.0); CALCIUM 8.9 mg/dL (8.8-10.2); CREATININE 2.1 mg/dL (0.5-0.9); MAGNESIUM 1.7 mg/dL (1.5-2.7); PHOSPHORUS 2.3 mg/dL (2.7-4.5); POTASSIUM 3.5 mmol/L (3.5-5.1); TOTAL BILIRUBIN 0.33 mg/dL (0.20-1.00); TOTAL PROTEIN 5.7 g/dL (6.3-8.3)
[2019-10-29] MEDS: ZYVOX 600 MG/D5W 600 MG/300 ML IVPB IV SCH ×2 (09:41→21:56)
[2019-10-29] MEDS: HEPARIN SUBQ SCH ×2 (09:42→21:56)
[2019-10-29] MEDS: PROTONIX IV SCH (09:42)
[2019-10-29] MEDS: CARAFATE LIQUID PO SCH ×2 (09:42→21:56)
[2019-10-29] MEDS: SODIUM CHLORIDE 0.9% INJ SCH (09:42)
[2019-10-29] MEDS: MIRALAX PO SCH (10:07)
[2019-10-29] MEDS ORDERED: LASIX IV ONE (13:50)
--- NOTE | 2019-10-29 14:21 | PROGRESS NOTE ---
DATE: 10/29/2019 SUBJECTIVE: The patient is resting comfortably in bed. She is complaining of dysphagia. Also, she has lost her taste for food. She has been coughing up some phlegm, and every time she tries to swallow, she feels the food getting stuck in the middle of the chest. I will ask Gastroenterology Department to evaluate this patient in the morning. Apparently, she had a history of hepatitis, but it is nonreactive. Echocardiogram has been done, and she seems to be stable. Kidney function is getting better. OBJECTIVE: Vital Signs: Temperature 97.9 degrees, pulse 88, respiratory rate 16, blood pressure 127/62, oxygen saturation 97% on room air. HEENT: Head normocephalic. No trauma. PERRLA. Neck: Supple. No JVD. No masses. Central trachea. Chest: Decreased breath sounds globally with some crepitus at the base, especially on the right side. Abdomen: Soft, nontender, nondistended. No hepatosplenomegaly. Extremities: There is 1+ lower extremity edema. No clubbing. No cyanosis. Neurological: The patient is awake, alert. She is oriented. No focal deficits. LABORATORY DATA: WBC 7.5, hemoglobin 10.2, hematocrit 33.6, platelets 304,000. Sodium 139, potassium 3.5, chloride 99, bicarbonate 26, BUN 29, creatinine 2.1, glucose 90, calcium 8.9. Phosphorus 2.3, magnesium 1.7. Albumin 3.1. ASSESSMENT AND PLAN: 1. Acute hypoxemic respiratory failure, likely due to pneumonia and fluid overload. Aspiration pneumonia is a possibility, especially on the right side. Continue with the broad-spectrum antibiotics. 2. Sepsis due to bilateral lower lobe pneumonia. Aware. 3. Bilateral lower lobe pneumonia, especially on the right side as above. 4. Constipation, resolved. 5. Acute on chronic kidney disease, likely multifactorial due to medications and sepsis. We are holding the angiotensin-converting enzyme inhibitors and hydrochlorothiazide. 6. Dysphagia. Apparently, this patient also has been having problems with her food, especially the taste, and every time she tries to swallow, she has nausea and vomiting. She is only tolerating fluids, especially water. I have requested an evaluation by Gastroenterology Department. 7. Pulmonary edema and fluid overload. This is getting better a little bit. She received a dose of Lasix yesterday, and she tolerated that. Actually, her BUN and creatinine are improving. I will give her an extra dose of Lasix today, and monitor. 8. History of hepatitis. As per the patient, she was told that she has hepatitis, but the hepatitis profile last month was negative. 9. Metastatic left breast cancer, apparently metastases to the peritoneum and probably liver. Aware. cc: Abram Washburn MD
[2019-10-29] MEDS: TYLENOL PO PRN (21:57)
[2019-10-30] MEDS: DUONEB (A & A) INH SCH ×6 (03:47→23:26)
[2019-10-30] MEDS: ZOSYN 2.25 GM in NS 50 ML IV SCH ×4 (04:14→22:02)
[2019-10-30 07:58] LABS: BASO# 0.03 X1000 (0.0-0.2); BASO% 0.4 % (0.0-0.8); EOS# 0.15 X1000 (0.0-0.7); EOS% 2.1 % (0.0-10.0); HEMATOCRIT 34.3 % (37.0-47.0); HEMOGLOBIN 10.4 g/dL (12.0-16.0); IMM GRAN# 0.03 X1000 (0.0-0.04); IMM GRAN% 0.4 % (0.0-0.5); LYMPH# 1.58 X1000 (1.2-3.4); LYMPH% 21.9 % (20.5-51.1); MCH 27.5 PG (27-31); MCHC 30.3 g/dL (33-37); MCV 90.7 FL (81-99); MONO# 0.87 X1000 (0.11-0.59); NEUT# 4.56 X1000 (1.4-6.5); NEUT% 63.2 % (42.2-75.2); PLT 289 X1000 (130-400); RBC 3.78 XMIL (4.2-5.4); RDW 16.6 % (11.5-14.5); WBC 7.22 X1000 (4.8-10.8)
[2019-10-30 08:35] LABS: ALB/GLOB RATIO 1.5; ALBUMIN 3.2 g/dL (3.5-5.0); CALCIUM 9.2 mg/dL (8.8-10.2); CREATININE 1.7 mg/dL (0.5-0.9); MAGNESIUM 1.6 mg/dL (1.5-2.7); PHOSPHORUS 2.3 mg/dL (2.7-4.5); POTASSIUM 3.4 mmol/L (3.5-5.1); TOTAL BILIRUBIN 0.31 mg/dL (0.20-1.00); TOTAL PROTEIN 5.3 g/dL (6.3-8.3)
[2019-10-30] MEDS: CARAFATE LIQUID PO SCH ×2 (09:09→22:03)
[2019-10-30] MEDS: HEPARIN SUBQ SCH ×2 (09:09→22:03)
[2019-10-30] MEDS: PROTONIX IV SCH (09:10)
[2019-10-30] MEDS: MIRALAX PO SCH (09:10)
[2019-10-30] MEDS: ZYVOX 600 MG/D5W 600 MG/300 ML IVPB IV SCH ×2 (09:49→21:03)
[2019-10-30] MEDS ORDERED: KLOR-CON PO ONE (09:57)
[2019-10-30] MEDS ORDERED: LASIX IV ONE (12:31)
--- NOTE | 2019-10-30 14:05 | PROGRESS NOTE ---
DATE: 10/30/2019 SUBJECTIVE: This patient is sitting on the bed. She is still complaining of some dysphagia, and she has lost her taste for food. She is still coughing up some phlegm. She has been scheduled for an EGD tomorrow. I will ask for a new x-ray in the morning. She still has some fluid overload. I will give her an extra dose of Lasix. Her kidney function is getting better. OBJECTIVE: Vital Signs: Temperature 98, pulse 93, respiratory rate 15, blood pressure 130/63, oxygen saturation 91% on room air. HEENT: Head normocephalic, no trauma. Neck: Supple. No JVD. No masses. Central trachea. Chest: Decreased breath sounds globally with some crepitus at the bases and rhonchi, especially on the right side. Abdomen: Soft, nontender, nondistended. No hepatosplenomegaly. Extremities: Lower extremity edema, 2+. No clubbing. No cyanosis. Neurological: The patient is awake, alert. She is oriented x3. No focal deficits. LABORATORY: WBC 7.2, hemoglobin 10.4, hematocrit 34.3, platelets 289,000. Sodium 142, potassium 3.4, chloride 103, bicarbonate 23, BUN 23, creatinine 1.7, glucose 85, calcium 9.2, phosphorus 2.3, albumin 3.2. ASSESSMENT AND PLAN: 1. Acute hypoxemic respiratory failure likely due to pneumonia and fluid overload, as well as aspiration pneumonia is a possibility, especially on the right side. Continue with broad- spectrum antibiotics, breathing treatment. 2. Sepsis due to bilateral lower lobe pneumonia, aware. 3. Bilateral lower lobe pneumonia, especially on the right side, as above. 4. Constipation, resolved. 5. Acute on chronic kidney disease, likely multifactorial due to medications, sepsis, low blood pressure. This is getting better. 6. Dysphagia, she has been scheduled for an endoscopy tomorrow. 7. Pulmonary edema and fluid overload. This is getting a little bit better. I will give her an extra dose of Lasix today to see how she does. 8. History of hepatitis, this has been ruled out. Hepatitis profile has been negative. 9. Metastatic left breast cancer, apparently metastasis to the peritoneum and probably liver. cc: Abram Washburn MD
--- NOTE | 2019-10-30 14:47 | HEMO/ONC CONSULTATION ---
DATE: 10/30/2019 REQUESTING PHYSICIAN: The patient is seen in initial consultation at the request of Dr. Rodríguez. REASON FOR CONSULTATION: Breast cancer. HISTORY OF PRESENT ILLNESS: Ms. Vegas is a patient who is newly known to me from a new diagnosis of metastatic breast cancer, hormone positive. She was diagnosed in 2016 with a left breast cancer, but she fell through the cracks at some point and did not receive any surgery or chemotherapy for her disease. Her left breast disease has scarred down, but she presented to the hospital in September with pneumonia and was found to have abdominal ascites. Cytology at that time was confirmatory for metastatic breast cancer. She was in my office in the last few days prior to admission for consideration of endocrine and enzyme inhibitor therapy to treat her metastatic breast cancer with palliative intent. She presented to the emergency room with nausea, vomiting on the day of admission, and was thought to have aspiration pneumonia. She has also noted constipation. She was hypoxemic on admission. PAST MEDICAL HISTORY: Significant for CHF, hypertension, COPD, diabetes, peripheral neuropathy, metastatic breast cancer, peritoneal mass. PAST SURGICAL HISTORY: Appendectomy, bilateral tubal ligation, left breast biopsy. FAMILY MEDICAL HISTORY: Daughter of breast cancer. SOCIAL HISTORY: Patient smoked 1 pack a day for 40 years, but quit in September 2019. ALLERGIES: Reviewed per the chart. MEDICATIONS: Reviewed per the chart. REVIEW OF SYSTEMS: Pertinent positives and negatives reviewed as per HPI, otherwise negative. PHYSICAL EXAMINATION: Vital Signs: Temperature 98.4, pulse 71, respiratory rate 21, blood pressure 92/45, O2 saturation 97% on 3 L nasal cannula. General: This is a chronically ill- appearing, woman in no acute distress. She is unaccompanied at time of consultation. Eyes: Sclerae anicteric. Cardiovascular: Regular rate and rhythm. Normal S1, S2. No murmurs, rubs, or gallops. Pulmonary: Coarse bilateral breath sounds with rhonchi in the right base. No wheezes or rales. GI/Abdomen: Obese, but soft, nontender, minimally distended with no palpable ascites. No rebound or guarding. Extremities: Trace bilateral pretibial edema. Neurologic: Alert and oriented x3. No focal deficits. Rest of examination is unremarkable. LABORATORY DATA: White count 6.89, hemoglobin 9.6, platelet count 270. Creatinine 3.2, potassium 3.7, calcium 9.0, albumin 3.0. IMAGING: Chest CT 10/25/2019 shows hiatal hernia with reflux and possible retained food particles in the upper esophagus with bilateral pleural effusions and right greater than left suspected pneumonia in the lung bases. Aspiration cannot be excluded. Mild ascites. ASSESSMENT AND PLAN: 1. Metastatic hormone positive breast cancer: Treatment has not been initiated as of yet due to her recent hospitalization. I have recommended endocrine therapy with Femara and Ibrance. We will institute therapy when her acute issues resolve. 2. Aspiration pneumonia: She is on appropriate antibiotic therapy. Continue same. Continue to monitor. 3. Renal failure: Her creatinine is back up today to 3.2. Continue hydration and monitoring per Nephrology with further workup on their end. 4. Anemia: Multifactorial. We will check vitamin studies and replete as indicated. 5. Hypotension: Her blood pressure is improved, and she has not required pressors. Possibly infection related. Thyroid stimulating hormone and cortisol are pending. Thank you for this consultation and the opportunity to participate in the care of this patient. We will follow along and leave further recommendations as indicated based on hospital course. cc: MD Abram Cervantes MD
--- NOTE | 2019-10-30 16:30 | GASTROENTEROLOGY CONSULTATION ---
DATE: 10/30/2019 REASON FOR CONSULT: Dysphagia and sensation of food stuck in the esophagus. HISTORY OF PRESENT ILLNESS: Ms. Vegas is a 68-year-old female with a history of hepatitis C, COPD, type 2 diabetes and metastatic breast cancer. The patient mentioned that she came on the with complaints of nausea, vomiting coffee- grounds emesis, and later on it was mucousy. The patient has complained that she has been having constipation. Her stools are looking dark and tarry. She does take Aleve PM on a daily basis. She has been complaining of having difficulty swallowing and feels like food is getting stuck in her throat. Mentioned having no taste for any food or drinks. She has complained of abdominal pain in the epigastric area mostly after she eats. Initially she thought that it might be gas that is causing her to have epigastric pain. GI saw her in September 2019 with upper GI bleed as well as constipation. Her constipation was treated with GoLYTELY and soapsuds enemas. The patient mentioned having a colonoscopy done [address] Soria and had polyps. PAST MEDICAL HISTORY: Congestive heart failure, hypertension, COPD, hepatitis C which she had in the 70s, diabetes type 2, neuropathy, umbilical hernia and left metastatic breast cancer. PAST SURGICAL HISTORY: Appendectomy, bilateral tubal ligation. Ultrasound- guided biopsy of the left breast. FAMILY HISTORY: Her daughter of breast cancer. SOCIAL HISTORY: The patient is living alone. She smokes half a pack of cigarettes a day. She was a past alcoholic, but has denied any illicit drug. ALLERGIES: No known drug allergies. MEDICATIONS: Home medications are amlodipine 10 mg p.o. daily, metformin 500 mg twice a day, albuterol sulfate 2 puffs inhaler 4 times a day, lisinopril/hydrochlorothiazide 10/225 mg 1 tablet daily, Spiriva 18 mcg inhalation daily, MiraLAX 17 grams p.o. daily, Lasix 40 mg p.o. daily, prednisone 20 mg p.o. daily, Prilosec 20 mg 2 caps p.o. daily. REVIEW OF SYSTEMS: As per HPI. Otherwise, 12 point review of system is negative. PHYSICAL EXAMINATION: Vital Signs: Temperature 98.2 degrees, pulse 91, respirations 18, blood pressure 113/65, oxygen saturation 90% on room air. The patient's weight is 207 pounds. BMI is 35.6 kg/m2. General: She is alert, oriented x3, obese, and in no acute distress. HEENT: Pale conjunctivae. No icterus. PERRL. Neck: Supple. Lungs: Coarse rhonchi heard in the anterior lobes. Cardiovascular: Patient is tachycardic. Abdomen: Mildly distended. Tender in the epigastric area. Active bowel sounds heard in all 4 quadrants. Extremities: No clubbing, no cyanosis, generalized edema in the lower extremities. Pedal pulses 1+ present bilaterally. Neurological: Alert and oriented x3. Nonfocal. Cranial nerves 2-12 grossly. LABORATORY DATA: WBCs of 7.22, RBC 3.78, hemoglobin 10.4, hematocrit is 34.3, platelet count is 289,000 sodium 142, potassium 3.4, chloride 103, carbon dioxide 23, anion gap 16, BUN 23, creatinine 0.7, glucose 85, calcium 9.2, phosphorus 2.3, magnesium 1.6, total bilirubin 0.31, AST 20, ALT 16, alkaline phosphatase is 115, albumin 3.2. IMAGING: The patient's chest x-ray on 10/29 showed resolution of the left basilar infiltrates, persistent right lower lobe pneumonia. Renal ultrasound on 10/2018 showed renal atrophy, worse on the right than the left. No evidence of obstructive uropathy, ascites. Chest CT on 10/25 showed hiatal hernia with reflux and possible retained food particles in the upper esophagus, bilateral pleural effusion, atelectasis versus pneumonia in the lung bases, particularly on the right. Possibility of aspiration cannot be excluded. Mild ascites. IMPRESSION AND PLAN: 1. Dysphagia. 2. Sepsis. 3. Pneumonia. 4. Chronic kidney disease. 5. Breast cancer . 6. Constipation. PLAN: Ms. Vegas is a 68-year-old female with a history of COPD, congestive heart failure, hypertension, and left breast cancer. GI has been consulted for dysphagia. We plan to do an EGD tomorrow to find out the cause of her dysphagia. The patient is currently on Protonix 40 mg IV daily. She is receiving antibiotic, Zyvox, and Zosyn for her sepsis and pneumonia. The patient is being followed by Dr. Gold for her breast cancer and patient mentioned that she might have PET scan scheduled for tomorrow. The patient is currently on a bowel regimen, MiraLAX 17 mg p.o. daily for her constipation. We have discussed the risks, benefits, and alternatives of the procedure to the patient. The patient acknowledges understanding of the plan of care. Further plan of care will be based on the EGD findings. This plan was discussed with Dr. Quinn. Thank you for your consult. Please call us for any further questions or concerns. Dictated by CHINA Rodriguez for Lane Quinn MD cc: Lane Quinn MD I have seen and examined the patient myself and I agree with the above plan of care. Please call us with any further questions or concerns. [facility]
[2019-10-31] MEDS: DUONEB (A & A) INH SCH ×6 (03:46→23:17)
[2019-10-31] MEDS: ZOSYN 2.25 GM in NS 50 ML IV SCH ×4 (05:25→22:05)
--- NOTE | 2019-10-31 06:38 | Diag Imaging Result Doc PS360 ---
EXAM: CHEST-PORTABLE HISTORY: dyspnea TECHNIQUE: Single view COMPARISON: 10/29/2019 FINDINGS: The lungs are well expanded. No cardiomegaly. Increased interstitial markings in the lung bases, right greater than left. Questionable small effusions. IMPRESSION: No interval improvement. Electronically signed by Franky Yusuf 10/31/2019 6:35 AM
[2019-10-31 08:05] LABS: HEMATOCRIT 34.3 % (37.0-47.0); HEMOGLOBIN 10.4 g/dL (12.0-16.0)
[2019-10-31 08:28] LABS: CALCIUM 9.2 mg/dL (8.8-10.2); CREATININE 1.6 mg/dL (0.5-0.9); POTASSIUM 3.9 mmol/L (3.5-5.1)
[2019-10-31] MEDS ORDERED: XYLOCAINE-MPF 2% ONE (08:51)
[2019-10-31] MEDS ORDERED: DIPRIVAN 1% ONE (08:51)
--- NOTE | 2019-10-31 09:30 | ENDOSCOPY OPERATIVE NOTE ---
[facility] ENDOSCOPY OPERATIVE NOTE , EGD PROCEDURE REPORT EXAM DATE: 10/31/2019 PATIENT NAME: Modesta Vegas MR#: [id number] BIRTHDATE: 1950 ATTENDING: Timothy Cuevas MD STATUS: inpatient [employer] SPECIALIST: INDICATIONS: The patient is a 68 yr old female here for an EGD due to dysphagia, pharyngeal-esophage al . PROCEDURE PERFORMED: EGD w/ biopsy MEDICATIONS: Per Anesthesia ESTIMATED BLOOD LOSS: None CONSENT: The patient understands the risks and benefits of the procedure and understands that these r isks include, but are not limited to: sedation, allergic reaction, infection, perforation and/or bleeding. Alternative means of evaluation and treatment include, among others: physical exam, x-rays, and/or surgical intervention. The patient elects to proceed with this endoscopic procedure. DESCRIPTION OF PROCEDURE: During pre-op preparation period all mechanical and medical equipment was c hecked for proper function. Hand hygiene and appropriate measures for infection prevention was taken. After the risks, benefits and alternatives of the procedure were thoroughly explained, Informed consent was verified, confirmed and timeout was successfully executed by the treatment team. The patient was anesthetized with topical anesthesia and the [id number]-[id number] ([id number]) endoscope was introduced through the mouth and advanced to the second portion of the duoden um. Retroflexion was performed in the stomach and revealed a hiatal hernia. The gastroscope was then slowly withdrawn and removed. The patient's toleration of the procedure was good. ESOPHAGUS: Esophagitis was found in the lower third of the esophagus. Esophagitis was LA Class D: Mu cosal breaks involving more than 75% of esophageal circumference. Multiple biopsies were performed using cold for ceps. Sample sent for histology. There was a benign appearing stricture with an inner diameter of 15mm. The strictur e was easily traversable. The esophagus tapers distally. Dilation was not attempted due to esophagitis. A 10 cm hiatal hernia was noted from 30 to 40 cm from incisors. GEJ was located at 30cm. STOMACH: Three linear erosions were found in the gastric antrum. A biopsy was performed using cold f orceps. Sample sent for histology. DUODENUM: The duodenum was normal. ADVERSE EVENTS: There were no complications. IMPRESSIONS: ESOPHAGUS: Esophagitis was found in the lower third of the esophagus. Esophagitis was LA Class D: Mu cosal breaks involving more than 75% of esophageal circumference. Multiple biopsies were performed using cold for ceps. Sample sent for histology. There was a benign appearing stricture with an inner diameter of 15mm. The strictur e was easily traversable. The esophagus tapers distally. Dilation was not attempted due to esophagitis. A 10 cm hiatal hernia was noted from 30 to 40 cm from incisors. GEJ was located at 30cm. STOMACH: Three linear erosions were found in the gastric antrum. A biopsy was performed using cold f orceps. Sample sent for histology. DUODENUM: The duodenum was normal. RECOMMENDATIONS: 1. Await biopsy results 2. Full liquid diet, advance as tolerated 3. Pantoprazole 40mg PO BID for 3 months 4. Avoid NSAIDs 5. Will sign off. Please call with questions 6. Follow-up with GI in 4-6 weeks REPEAT EXAM: Return in 3 months for EGD. Timothy Cuevas MD eSigned: Timothy Cuevas MD 10/31/2019 9:29 AM CC: CPT CODES: 83494 Upper gastrointestinal endoscopy including esophagus, stomach, and either the du odenum and/or jejunum as appropriate; with biopsy, single or multiple ICD CODES: 787.20 Dysphagia,unspecified 553.3 Diaphragmatic hernia without mention of obstruction or gangrene The ICD and CPT codes recommended by this software are interpretations from the data that the [facility] staff has captured with the software. The verification of the translation of this report to the ICD and CPT co mariam and modifiers is the sole responsibility of the health care institution and practicing physician where this report was generated. [employer] will not be held responsible for the validity of the ICD and CPT codes i ncluded on this report. [employer] assumes no liability for data contained or not contained herein. CPT is a registered tra demark of the [employer]. PATIENT NAME: Modesta Vegas MR#: [id number]
[2019-10-31] MEDS: MIRALAX PO SCH (10:02)
[2019-10-31] MEDS: CARAFATE LIQUID PO SCH ×2 (10:02→20:00)
[2019-10-31] MEDS: ZYVOX 600 MG/D5W 600 MG/300 ML IVPB IV SCH ×2 (10:03→20:00)
[2019-10-31] MEDS: PROTONIX IV SCH (10:03)
[2019-10-31] MEDS: HEPARIN SUBQ SCH ×2 (10:03→20:00)
[2019-10-31] MEDS: SODIUM CHLORIDE 0.9% INJ SCH (10:03)
[2019-10-31] MEDS: TYLENOL PO PRN (10:14)
[2019-10-31] MEDS ORDERED: LASIX IV ONE (11:32)
--- NOTE | 2019-10-31 17:19 | PROGRESS NOTE ---
DATE: 10/31/2019 SUBJECTIVE: The patient is sitting on the bed. She is still complaining of some burning sensation on her chest. She is complaining of some dysphagia as well. She is still coughing up some phlegm. She had an esophagogastroduodenoscopy done today. OBJECTIVE: Vital Signs: Temperature 97.6 degrees, pulse 88,respiratory rate 17, blood pressure 129/71, oxygen saturation 97% on 3 L of nasal cannula. HEENT: Head normocephalic no trauma PERRLA. Neck: Supple. No JVD. No masses. Central trachea. Chest: Decreased breath sounds globally with some crepitus at the bases specially on the right side. Abdomen: Soft. Some tenderness to palpation at the level of the epigastric area. Extremities: 2+ lower extremity edema. No clubbing. No cyanosis. Neurological: The patient is awake. She is alert. She is oriented x3. No focal deficits. LABORATORY: Hemoglobin 10.4, hematocrit 34.3. Sodium 143, potassium 3.9, chloride 104, bicarbonate 27, BUN 20, creatinine 1.6, glucose 92 calcium 9.2. ASSESSMENT AND PLAN: 1. Acute hypoxemic respiratory failure due to pneumonia and fluid overload, continue with antibiotics. Continue with Lasix IV, which she is basically getting every day for the past 3 or 4 days. 2. Sepsis due to bilateral lower lobe pneumonia, aware. 3. Bilateral lower lobe pneumonia, especially on the right side as above. 4. Constipation, resolved. 5. Acute on chronic kidney disease, likely multifactorial due to medications, sepsis, low blood pressure, this is getting better. 6. Dysphagia. This patient had an endoscopic exam done today that showed severe esophagitis, LA Class D, the mucous breaks involving more than 75% of the esophageal circumference, multiple biopsies were performed. There was a benign appearing stricture with an inner diameter of 15 mm. The stricture was easily traversable. The esophagus tapers distally. Dilation was not attempted due to esophagitis, a 10 cm hiatal hernia was noted from 30 to 40 cm from incisors. In the stomach three linear erosions were found in the gastric and antrum, a biopsy was performed using cold forceps. A sample was sent to histology. 7. Pulmonary edema and fluid overload, this is getting better. We will continue with Lasix. 8. History of hepatitis, this has been ruled out. Hepatitis profile has been negative. 9. Metastatic left breast cancer, apparently metastasis to the peritoneum and probably liver. Dr. Gold will follow this patient as an outpatient. cc: Abram Washburn MD MTDD
[2019-10-31] MEDS: PROTONIX PO SCH (20:00)
[2019-11-01] MEDS: DUONEB (A & A) INH SCH ×6 (03:24→23:44)
[2019-11-01] MEDS: ZOSYN 2.25 GM in NS 50 ML IV SCH ×5 (04:57→22:00)
[2019-11-01 09:16] LABS: CALCIUM 9.1 mg/dL (8.8-10.2); CREATININE 1.5 mg/dL (0.5-0.9); POTASSIUM 3.6 mmol/L (3.5-5.1)
[2019-11-01] MEDS ORDERED: LASIX IV ONE ×2 (09:26→16:00)
[2019-11-01] MEDS: ZYVOX 600 MG/D5W 600 MG/300 ML IVPB IV SCH ×2 (09:46→20:43)
[2019-11-01] MEDS: HEPARIN SUBQ SCH ×2 (09:47→20:42)
[2019-11-01] MEDS: PROTONIX PO SCH ×2 (09:47→20:42)
[2019-11-01] MEDS: CARAFATE LIQUID PO SCH ×2 (09:47→20:42)
--- NOTE | 2019-11-01 13:50 | PROGRESS NOTE ---
DATE: 11/01/2019 SUBJECTIVE: This patient is sitting on the bed. She is feeling a bit better. She is still on oxygen. She still has some fluid overload. She is still having some burning sensation on her chest, but this seems to be getting a little bit better. I will request an evaluation by home O2 evaluation to see if she needs oxygen to go home with. I will give him a couple doses of Lasix today to try to remove more fluid. She has been having a good urine output, but it is not documented. Her kidney function has been stable. Hopefully I will discharge this patient tomorrow if she is feeling better. OBJECTIVE: Vital Signs: Temperature 97.5 degrees, pulse 88, respiratory rate 16, blood pressure 120/73, oxygen saturation 100% on 3 L of nasal cannula. HEENT: Head normocephalic. No trauma. PERRLA. Neck: Supple. No JVD. No masses. Central trachea. Chest: Decreased breath sounds globally with some crepitus at the bases, especially on the right side. Abdomen: Soft, some tenderness to palpation at the level of the epigastric area. Extremities: Two plus lower extremity edema. No clubbing. No cyanosis. Neurological: The patient is awake. She is alert. She is oriented x3. No focal deficit. LABORATORY: Sodium 143, potassium 3.6, chloride 102, bicarbonate 26, BUN 18, creatinine 1.5, glucose 97, calcium 9.1. ASSESSMENT AND PLAN: 1. Acute hypoxemic respiratory failure due to pneumonia and fluid overload, continue with antibiotics. Continue with intravenous Lasix. She will receive an extra dose of Lasix today. Kidney function has been stable. 2. Sepsis due to bilateral lower lobe pneumonia. Aware. 3. Bilateral lower lobe pneumonia, especially on the right side. 4. Constipation, resolved. 5. Lbsvd-ht-gpoweau kidney disease, likely multifactorial. This is much better. 6. Dysphagia status post endoscopic exam done yesterday that showed severe esophagitis LA class D, the mucosal breaks involving more than 75% of the esophageal circumference. Multiple biopsies were performed. There was a benign- appearing stricture with an inner diameter of 15 mm. The stricture was easily traversable. The esophagus tapers distally. Dilation was not attempted due to esophagitis, a 10 cm hiatal hernia was noted from 30 to 40 cm from the incisors. In the stomach, 3 linear erosions were found in the gastric antrum. A biopsy was performed using cold forceps. A sample was sent to histology. 7. Pulmonary edema and fluid overload. This is getting better. We will continue with Lasix. 8. History of hepatitis, this has been ruled out. As per the patient, she was told that she had hepatitis before but the hepatitis profile is negative. 9. Metastatic left breast cancer, apparently metastasis to the peritoneum and probably her liver. Dr. Gold will follow this patient as an outpatient. cc: Abram Washburn MD
[2019-11-01] MEDS: MIRALAX PO SCH (16:05)
[2019-11-01] MEDS: TYLENOL PO PRN (20:47)
--- NOTE | 2019-11-01 23:16 | PROVIDER PROGRESS NOTE ---
Progress Note S: No acute overnight events. No N/V. Patient reports no desire to eat because food tastes like "sandpaper". She denies dysphagia at this moment. No abdominal pain. Last Vital Signs Temp 97.8 F 11/01/19 19:42 Pulse 93 H 11/01/19 19:42 Resp 17 11/01/19 19:42 BP 122/64 11/01/19 19:42 Pulse Ox 100 11/01/19 19:42 Height 5 ft 4 in Weight 207 lb 3 oz GEN: awake, alert, NAD HEENT: anicteric, MMM NECK: supple, no JVD PULM: CTAB, no wheezing ABD: soft NT/ND, NABS EXT: WWP NEURO: nonfocal LABS 11/01/19 08:15 Sodium 143 Potassium 3.6 Chloride 102 Carbon Dioxide 26 BUN 18 Creatinine 1.5 H Glucose 97 EGD 10/31 IMPRESSIONS: ESOPHAGUS: Esophagitis was found in the lower third of the esophagus. Esophagitis was LA Class D: Mucosal breaks involving more than 75% of esophageal circumference. Multiple biopsies were performed using cold forceps. Sample sent for histology. There was a benign appearing stricture with an inner diameter of 15mm. The stricture was easily traversable. The esophagus tapers distally. Dilation was not attempted due to esophagitis. A 10 cm hiatal hernia was noted from 30 to 40 cm from incisors. GEJ was located at 30cm. STOMACH: Three linear erosions were found in the gastric antrum. A biopsy was performed using cold forceps. Sample sent for histology. DUODENUM: The duodenum was normal. A/P Ms. Modesta Vegas is a 68 year old woman with HTN, HLD, breast cancer, COPD, CKD who presents to the GI service with dysphagia found to have LA grade D esophagitis, large hiatal hernia, widely-patent esophageal stricture, and gastric erosions. Gastric and esophageal biopsies are pending. Patient is avoiding food because of the "taste". Continue PPI BID for 3 months, repeat EGD then with possible dilation. Advance diet as tolerated. GI to follow-up path. Avoid NSAIDs. Continue miralax. # Dysphagia # Esophagitis # Gastric erosions # Esophageal stricture # Hiatal hernia # Constipation Will follow with you.
[2019-11-02] MEDS: DUONEB (A & A) INH SCH ×6 (03:40→23:49)
[2019-11-02] MEDS: ZOSYN 2.25 GM in NS 50 ML IV SCH ×5 (04:58→21:58)
[2019-11-02 08:10] LABS: CALCIUM 9.2 mg/dL (8.8-10.2); CREATININE 1.7 mg/dL (0.5-0.9); POTASSIUM 3.7 mmol/L (3.5-5.1)
[2019-11-02] MEDS: CARAFATE LIQUID PO SCH ×3 (09:55→21:58)
[2019-11-02] MEDS: HEPARIN SUBQ SCH ×3 (09:55→21:58)
[2019-11-02] MEDS: PROTONIX PO SCH ×3 (09:55→21:58)
[2019-11-02] MEDS: ZYVOX 600 MG/D5W 600 MG/300 ML IVPB IV SCH ×3 (09:56→21:58)
[2019-11-02] MEDS: TYLENOL PO PRN (09:57)
[2019-11-02] MEDS: MIRALAX PO SCH (09:59)
--- NOTE | 2019-11-02 13:02 | PROGRESS NOTE ---
DATE: 11/02/2019 SUBJECTIVE: The patient seems to be about the same compared with yesterday. She is feeling a little bit better. She is still complaining of some burning sensation in the middle of the chest, likely due to severe esophagitis. We will continue with oxygen supplementation and antibiotics. I will repeat a new chest x-ray in the morning. OBJECTIVE: Vital Signs: Temperature 98.5 degrees, pulse 83, respiratory rate 18, blood pressure 127/70, oxygen saturation 100% on 3 L of nasal cannula. HEENT: Head normocephalic. No trauma. PERRLA. Neck: Supple. No JVD. No masses. Central trachea. Chest: Decreased breath sounds globally with some crepitus at the bases, especially on the right side. Abdomen: Soft. Some tenderness to palpation at the level of the epigastric area. Extremities: There is 2+ lower extremity edema. No clubbing. No cyanosis. Neurological Examination: The patient is awake. She is alert. She is oriented x3. No focal deficits. Laboratory: Sodium 142, potassium 3.7, chloride 100, bicarbonate 28, BUN 18, creatinine 1.7, glucose 87, calcium 9.2. ASSESSMENT AND PLAN: 1. Acute hypoxemic respiratory failure due to pneumonia and fluid overload. Continue with antibiotics. She received some intravenous Lasix yesterday. I will ask for a new x-ray in the morning. We will continue to monitor. 2. Sepsis due to bilateral lower lobe pneumonia. Aware. 3. Bilateral lower lobe pneumonia, especially on the right side. 4. Constipation, resolved. 5. Acute on chronic kidney disease, likely multifactorial, better. 6. Dysphagia, status post endoscopic examination done 2 days ago that showed severe esophagitis, LA class D. Mucosal breaks involving more than 75% of the esophagus circumference. Multiple biopsies were performed. There was a benign-appearing stricture with an inner diameter of 15 mm. The stricture was easily traversable. The esophagus tapers distally. Dilation was not attempted due to esophagitis. A 10 cm hiatal hernia was noted from 30 to 40 cm from the incisors. The stomach had three linear erosions in the gastric antrum. Biopsies were performed with cold forceps and the sample was sent to histology. 7. Pulmonary edema and fluid overload. This is getting better. We will continue with Lasix but we will hold it for today. 8. History of hepatitis, ruled out already. 9. Metastatic left breast cancer, apparently metastasis to the peritoneal and probably her liver. Dr. Gold will follow this patient as an outpatient. cc: Abram Washburn MD
--- NOTE | 2019-11-02 23:31 | PROVIDER PROGRESS NOTE ---
Progress Note S: No acute overnight events. Patient reports abdominal discomfort. Patient is refusing to eat because of "taste" and food "balling up in her mouth". No N/V. O: Last Vital Signs Temp 97.6 F 11/02/19 19:35 Pulse 89 11/02/19 19:35 Resp 17 11/02/19 19:35 BP 112/61 11/02/19 19:35 Pulse Ox 96 11/02/19 19:35 Height 5 ft 4 in Weight 207 lb 3 oz GEN: awake, alert, NAD HEENT: anicteric, MMM NECK: supple, no JVD PULM: CTAB, no wheezing CV: RRR, no murmurs ABD: soft NT/ND, NABS EXT: WWP NEURO: nonfocal LABS 11/02/19 07:30 Sodium 142 Potassium 3.7 Chloride 100 Carbon Dioxide 28 BUN 18 Creatinine 1.7 H Glucose 87 EGD 10/31 IMPRESSIONS: ESOPHAGUS: Esophagitis was found in the lower third of the esophagus. Esophagitis was LA Class D: Mucosal breaks involving more than 75% of esophageal circumference. Multiple biopsies were performed using cold forceps. Sample sent for histology. There was a benign appearing stricture with an inner diameter of 15mm. The stricture was easily traversable. The esophagus tapers distally. Dilation was not attempted due to esophagitis. A 10 cm hiatal hernia was noted from 30 to 40 cm from incisors. GEJ was located at 30cm. STOMACH: Three linear erosions were found in the gastric antrum. A biopsy was performed using cold forceps. Sample sent for histology. DUODENUM: The duodenum was normal. A/P Ms. Modesta Vegas is a 68 year old woman with HTN, HLD, breast cancer, COPD, CKD who presents to the GI service with dysphagia found to have LA grade D esophagitis, large hiatal hernia, widely-patent esophageal stricture, and gastric erosions. Gastric and esophageal biopsies are pending. Patient is avoiding food because of the "taste". Continue PPI BID for 3 months, repeat EGD then with possible dilation. Advance diet as tolerated. GI to follow-up path. Avoid NSAIDs. Continue miralax. # Dysphagia # Esophagitis # Gastric erosions # Esophageal stricture # Hiatal hernia # Constipation Will follow with you.
[2019-11-03] MEDS: DUONEB (A & A) INH SCH ×2 (03:01→07:51)
[2019-11-03] MEDS: ZOSYN 2.25 GM in NS 50 ML IV SCH ×2 (03:42→09:30)
[2019-11-03] MEDS: TYLENOL PO PRN (03:56)
[2019-11-03 07:27] LABS: BASO# 0.01 X1000 (0.0-0.2); BASO% 0.2 % (0.0-0.8); EOS# 0.06 X1000 (0.0-0.7); EOS% 1.1 % (0.0-10.0); HEMATOCRIT 33.3 % (37.0-47.0); HEMOGLOBIN 9.8 g/dL (12.0-16.0); IMM GRAN# 0.02 X1000 (0.0-0.04); IMM GRAN% 0.4 % (0.0-0.5); LYMPH# 1.46 X1000 (1.2-3.4); LYMPH% 25.9 % (20.5-51.1); MCH 26.3 PG (27-31); MCHC 29.4 g/dL (33-37); MCV 89.5 FL (81-99); MONO# 0.91 X1000 (0.11-0.59); MONO% 16.2 % (1.7-9.3); NEUT# 3.17 X1000 (1.4-6.5); NEUT% 56.2 % (42.2-75.2); PLT 256 X1000 (130-400); RBC 3.72 XMIL (4.2-5.4); RDW 16.4 % (11.5-14.5); WBC 5.63 X1000 (4.8-10.8)
[2019-11-03 07:51] LABS: ALB/GLOB RATIO 1.3; CALCIUM 9.1 mg/dL (8.8-10.2); CREATININE 1.6 mg/dL (0.5-0.9); MAGNESIUM 1.3 mg/dL (1.5-2.7); PHOSPHORUS 3.1 mg/dL (2.7-4.5); POTASSIUM 3.4 mmol/L (3.5-5.1); TOTAL BILIRUBIN 0.3 mg/dL (0.20-1.00); TOTAL PROTEIN 5.4 g/dL (6.3-8.3)
[2019-11-03 08:05] VITALS: BP 109/54
[2019-11-03] MEDS ORDERED: CENTRUM SILVER PO SCH (09:00)
[2019-11-03] MEDS: CARAFATE LIQUID PO SCH (09:29)
[2019-11-03] MEDS: HEPARIN SUBQ SCH (09:30)
[2019-11-03] MEDS: MIRALAX PO SCH (09:30)
[2019-11-03] MEDS: PROTONIX PO SCH (09:30)
[2019-11-03] MEDS: ZYVOX 600 MG/D5W 600 MG/300 ML IVPB IV SCH (09:39)
[2019-11-03] MEDS: ZOFRAN IV PRN (09:54)
--- NOTE | 2019-11-03 12:25 | GASTROENTEROLOGY PROGRESS NOTE ---
DATE: 11/03/2019 SUBJECTIVE: Ms. Vegas is a 68-year-old female sitting at the side of the bed. The patient has been complaining of shortness of breath. She has denied any nausea, vomiting, or abdominal pain but does complain about having a bad taste and feeling like everything tastes like paper when she puts it in the mouth. OBJECTIVE: Vital Signs: Temperature 98 degrees, pulse 88, respirations 18, blood pressure 109/54, oxygen saturation 96% on room air. Patient's weight is 207 pounds. BMI is 35.6 kg/m2. General: She is alert, oriented x3, and in no acute distress. HEENT: Pale conjunctivae. No icterus. PERRL. Neck: Supple. Lungs: Clear to auscultation in the anterior marques. Cardiovascular: Regular rate and rhythm. Abdomen: Soft, nontender, nondistended. Active bowel sounds heard in all 4 quadrants. Extremities: No clubbing, no cyanosis. 2+ edema in the right lower extremity, 1+ edema in the left lower extremity. Pedal pulses 1+ present bilaterally. Neurologic: Alert and oriented x3. LABORATORY DATA: WBCs of 5.63, RBCs 3.72, hemoglobin is 9.8, hematocrit is 33.3, platelet count is 250,000. Sodium 142, potassium 3.4, chloride 99, carbon dioxide 25, anion gap 18, BUN 19, creatinine is 1.6, glucose 70, calcium 9.1, phosphorus 3.1, magnesium 1.3, total bilirubin 0.30, AST 15, ALT 13, alkaline phosphatase 154, albumin is 3.4. IMPRESSION AND PLAN: 1. Dysphagia. 2. Esophagitis. 3. Hiatal hernia. 4. Esophageal stricture. 5. Constipation. 6. Anemia. PLAN: Ms. Vegas is a 68-year-old female with a history of hypertension, hyperlipidemia, breast cancer, chronic obstructive pulmonary disease, chronic kidney disease. GI has been following her for dysphagia. An EGD was done on 10/31/2019, she had esophagitis, hiatal hernia, esophageal stricture and gastric erosions. Gastric esophageal biopsies were done which are pending. The patient is currently on Protonix 40 mg p.o. twice a day. She is on a bowel regimen MiraLAX 17 grams p.o. daily for her constipation. Patient is getting discharged today and she will be followed by Dr. Gold for her PET scan and chemo treatment for breast cancer. We will continue patient with PPI for 3 months. Patient has been advised to avoid NSAIDS. Patient will need a repeat EGD in 3 months, we will follow her up as an outpatient in 4 to 6 weeks. This plan has been discussed with Dr. Quinn. Please call us for any further questions or concerns. Dictated by CHINA Rodriguez for Lane Quinn MD cc: Lane Quinn MD I have seen and examined the patient myself and I agree with the above plan of care. Please call us with any further questions or concerns. MTDD
[2019-11-03] MEDS ORDERED: MAGNESIUM SULFATE 2 GM/S.W.I. 2 GM/50 ML IVPB IV ONE (14:42)
--- NOTE | 2019-11-04 07:48 | DISCHARGE SUMMARY ---
ADMISSION DATE: 10/25/2019 DISCHARGE DATE: 11/03/2019 DISCHARGE DIAGNOSES: 1. Acute hypoxemic respiratory failure due to pneumonia and fluid overload. She received at least 8 days of continued antibiotics. She will complete a course of 10 days at home. 2. Sepsis due to bilateral lower lobe pneumonia aware. 3. Bilateral lower lobe pneumonia, especially on the right side. 4. Constipation, resolved. 5. Acute on chronic kidney disease, multifactorial, resolved. 6. Dysphagia, status post endoscopic examination, postoperative day 3. 7. Severe esophagitis LA class D with mucosal breaks involving more than 75% of the esophageal circumference. There was a benign-appearing stricture with an inner diameter of 15 mm. The esophagus tapers distally, but dilation was not attempted due to esophagitis. 8. A 10 cm hiatal hernia noted from 30 to 40 cm from the EC source. 9. Stomach has 3 linear erosions in the gastric antrum; biopsies were performed. 10. Pulmonary edema and fluid overload, better. 11. History of hepatitis. This has been ruled out already. Hepatitis panel is negative. 12. Metastatic left breast cancer, apparently metastasis to the peritoneal area and probably liver. Dr. Gold will follow this patient as an outpatient. PROCEDURE PERFORMED: 1. Chest x-ray dated 10/25/2019. Impression: Atelectasis at the level of the right lower lobe. 2. Chest CT scan dated 10/25/2019. Impression: Hiatal hernia with reflux and possible retained food particle in the upper esophagus, bilateral pleural effusion, atelectasis versus pneumonia in the lung bases, particularly on the right. The possibility of an aspiration cannot be excluded. Mild ascites. 3. Abdomen x-ray. Impression: No evidence of acute disease. 4. Renal ultrasound dated 10/26/2019. Impression: Renal atrophy, worse in the right and left. No evidence of obstructive uropathy. Ascites. 5. Chest x-ray dated 10/28/2019. Impression: Interval slight worsening of bilateral bibasilar infiltrate and development of a small effusion. 6. Chest x-ray dated 10/29/2019. Impression: Resolution of the left basilar infiltrate, persistent right lower lobe pneumonia. 7. Chest x-ray dated 10/31/2019. No interval improvement. HOSPITAL COURSE: A 68-year-old female with a past medical history of COPD, type 2 diabetes, recently diagnosed with metastatic breast cancer with metastasis to the peritoneum and ascites, possible liver, who is following up with Dr. Gold. She has not been started on any chemotherapy yet. She was admitted in the hospital previously on 09/27/2019, was treated for pneumonia and discharged on 10/06/2019. She stated that she was doing okay, but having epigastric pain and chest pain that was really burning in nature, and then she started having nausea and vomiting, intractable. On the other hand, she states that she has been extremely constipated. She was found in the emergency department to be hypoxemic. She was slightly tachycardic and she was admitted. She was placed on antibiotics because of the possibility of pneumonia bilaterally, which later was corroborated by multiple studies. She was hypoxemic during the course of this hospitalization, and also she had some fluid that we have been removing with Lasix basically on a daily basis. She has an acute on chronic kidney disease that basically resolved and now this is her baseline. At one point of her hospitalization, the blood pressure was low. The systolic blood pressure was in the 70s, so I transferred this patient to the ICU and we attempted to place this patient on vasopressors. The blood pressure got better. We continued with the antibiotics and because this patient was having severe burning sensation in the chest and some dysphagia, we decided to go ahead and scope this patient. We found an LA grade D esophagitis, and also we found some gastric erosions. Please refer to the final report from the endoscopy for more details. The patient has been improving on a daily basis. He has been always complaining of decreased taste. She states that she feels like she has chewing on paper. I had a large conversation with the patient about it. She has been placed on proton pump inhibitors twice a day and she will go home today with oxygen. I do believe she is stable enough today to go home and follow up with Gastroenterology Department, Dr. Cuevas, on 12/08/2019 at 9 a.m. and also she needs to follow up with Dr. Gold this week so she can get all the procedures done. I do believe she is going to get a PET scan as well. PHYSICAL EXAMINATION: Vital Signs: Temperature 98 degrees, pulse 88, respiratory rate 18, blood pressure 109/54, oxygen saturation 96 on 3 L of nasal cannula. HEENT: Head normocephalic, no trauma. PERRLA. Neck: Supple. No JVD. No masses. Central trachea. Chest: Clear to auscultation. No wheezing. No rales. Abdomen: Soft. She has some tenderness to palpation at the level of the epigastric area. Extremities: 2+ lower extremity edema. No clubbing. No cyanosis. Neurological: The patient is awake. She is alert. No focal neurological deficits. LABORATORY: WBC 5.3, hemoglobin 9.8, hematocrit 33.3, platelets 256,000. Sodium 142, potassium 3.4, chloride 99, bicarbonate 25 BUN 6, BUN 19, creatinine 1.6, glucose 70, calcium 9.1, magnesium 1.3, albumin 3. DISCHARGE MEDICATIONS: 1. Tylenol 650 mg p.o. q.6 hours as needed. 2. Ventolin HFA 2 puff inhaler 4 times a day. 3. Omnicef 300 mg p.o. b.i.d. 4. Metformin 500 mg p.o. b.i.d.' 5. Centrum Silver 1 tablet p.o. daily. 6. Pantoprazole 40 mg p.o. b.i.d. 7. MiraLAX 17 g p.o. daily. 8. Prednisone 20 mg p.o. daily. 9. Carafate 1 gram p.o. 4 times a day. 10. Spiriva 18 g daily inhaler. T He patient has been instructed to decrease the prednisone by 10 on a weekly basis and then stop. Also, the patient has been instructed not to take MiraLAX if she is having diarrhea. Time discharging this patient, 45 minutes. cc: Abram Washburn MD
== END 2019-11-03 15:14 | disposition home health service (06) | DRG 871 ==
LOC: ED 15:35 → 3N 20:37 → SUATTDRO 20:37 → ICU 10-27 14:35 → 3N 10-28 10:03
PROVIDERS: ATTEND Internal Medicine

== ENCOUNTER 2019-11-09 05:49 | Inpatient (IN) ==
--- NOTE | 2019-11-09 06:09 | PROVIDER DOCUMENTATION ---
HPI-Respiratory General - General Chief Complaint: Shortness of Breath Stated Complaint: sob Time Seen by Provider: 11/09/19 06:08 Source: patient Allergies/Adverse Reactions: Patient Allergies Allergy/AdvReac Type Severity Reaction Status Date / Time No Known Allergies Allergy Verified 10/25/19 17:23 Home Medications: Home Medication List Medication Instructions Recorded Confirmed Last Taken Type Metformin [Glucophage] 500 mg PO BID 09/11/14 10/25/19 10/25/19 History Albuterol Sulfate Inhaler 2 puff INH [id number] #0 inhaler 09/15/14 10/25/19 10/25/19 Rx [Ventolin Hfa] Tiotropium [place] Inhaler 18 mcg INHALATION DAILY 09/27/19 10/25/19 10/25/19 History [Spiriva] Polyethylene Glycol 3350 [Miralax] 17 gm PO DAILY powder, packet 10/03/19 10/25/19 10/25/19 Rx Prednisone 20 mg PO DAILY #30 tab 10/03/19 10/25/19 10/25/19 Rx Acetaminophen [Tylenol] 650 mg PO Q6H PRN PRN tab 11/03/19 Unknown Rx CefDINIR [Omnicef] 300 mg PO BID #6 cap 11/03/19 Unknown Rx Multivitamins/Minerals [Centrum 1 ea PO DAILY tab 11/03/19 Unknown Rx Silver] Pantoprazole [Protonix] 40 mg PO BID #180 tab 11/03/19 Unknown Rx Sucralfate [Carafate] 1 gm PO 4XDAY #160 tab 11/03/19 Unknown Rx - History of Present Illness-Resp Nature of Presenting Problem: Patient is a 68 year old black female with history of tobacco abuse (currently smokes 1- 1.5ppd),diabetes, and severe COPD requiring home oxygen with recent admission to [facility] for pneumonia who presents by EMS with worsening SOB since tonight. Denies fever or chest pain. Review of Systems - Adult - REVIEW OF SYSTEMS - ADULT ROS:: limited per condition Constitutional: reports: no symptoms reported Eyes: reports: no symptoms reported Ears, Nose, Mouth & Throat: reports: no symptoms reported Cardiovascular: reports: no symptoms reported Respiratory: reports: no symptoms reported Gastrointestinal: reports: no symptoms reported Genitourinary: reports: no symptoms reported Musculoskeletal: reports: no symptoms reported Integumentary: reports: no symptoms reported Neurological: reports: no symptoms reported Psychiatric: reports: no symptoms reported Endocrine: reports: no symptoms reported Hematologic/Lymphatic: reports: no symptoms reported Allergic/Immunologic: reports: no symptoms reported All Other Systems: Reviewed and Negative Past History - Adult - PAST MEDICAL HISTORY-ADULT Review of Records: reports: Old Records Reviewed, Nursing Assessment Review, Medications Reviewed, Social history reviewed & non-contributory. Major Childhood Illnesses: reports: denies history Cardiovascular: reports: CHF, HTN Respiratory: reports: COPD Gastrointestinal: reports: denies history Obstetrical/Gynecological: reports: denies history Genitourinary: reports: denies history Musculoskeletal: reports: denies history Neurological: reports: denies history Endocrine/Immune: reports: denies history Other Conditions: reports: denies history - PRIOR SURGERIES/PROCEDURES Surgical/Procedure History: reports: appendectomy, other (cyst removal ) - IMMUNIZATION STATUS Childhood Immunizations: See Nurse Assessment Flu Vaccine: See Nurse Assessment - FAMILY HISTORY Family History: reviewed, not pertinent Physical Exam-General - CONSTITUTIONAL General Appearance: alert, no apparent distress, obese - EYES Eyes: other (clear) - HEAD, EARS, NOSE, MOUTH & THROAT HENMT: normocephalic/atraumatic, moist mucous membranes - NECK Neck: supple - RESPIRATORY Respiratory: decreased breath sounds, wheezing - CARDIOVASCULAR Cardiovascular: tachycardia - GASTROINTESTINAL (ABDOMEN) Abdominal Exam: non tender, soft - MUSCULOSKELETAL Extremity: non-tender Peripheral Pulses: radial (R): 2+ - SKIN Integumentary: normal color, normal turgor, warm/dry - NEUROLOGIC Neurologic: grossly normal - PSYCHIATRIC Psych/Mental Status: oriented x 3, anxious Progress - PLAN OF CARE/RESULTS Progress/Plan/Lab Results: Vital Signs - 8 hr 11/09/19 05:58 11/09/19 06:10 11/09/19 09:30 Temperature 97.4 F L Pulse Rate 116 H 115 H 117 H Respiratory Rate 36 H 33 H 23 Blood Pressure 125/67 O2 Sat by Pulse Oximetry 93 L 96 97 Laboratory Results - last 24 hr 11/09/19 11/09/19 11/09/19 06:05 06:12 06:12 WBC 18.64 H RBC 3.71 L Hgb 10.3 L Hct 33.2 L MCV 89.5 MCH 27.8 MCHC 31.0 L RDW Std Deviation 16.3 H Plt Count 312 MPV 10.0 Immature Gran % (Auto) 1.6 H Neut % (Auto) 64.1 Lymph % (Auto) 13.5 L [place] % (Auto) 20.3 H Eos % (Auto) 0.1 Baso % (Auto) 0.4 Immature Gran # (Auto) 0.30 H Neut # (Auto) 11.95 H Lymph # (Auto) 2.52 [place] # (Auto) 3.79 H Eos # (Auto) 0.01 Baso # (Auto) 0.07 D-Dimer, Quantitative Specimen Type ARTERIAL Sample Site R RADIAL pH 7.54 H pCO2 29 L pO2 133 H HCO3 27.0 H Base Excess 2.7 Oxyhemoglobin 96.3 ABG O2 Sat (Calculated) 14.6 L ABG O2 Saturation 99.5 ABG Carboxyhemoglobin 1.80 ABG Methemoglobin 1.4 Giles Test YES A-a O2 Difference 87.0 Total Hemoglobin 10.6 L Lactate 1.80 Liter Flow 4.0 Blood Gas Modality CANNULA FiO2 % 36.0 Sodium 149 H Potassium 3.2 L Chloride 99 Carbon Dioxide 24 L Anion Gap 26 BUN 15 Creatinine 1.1 H Estimated GFR/1.73 m2 60 BUN/Creatinine Ratio 14 Glucose 124 H Calculated Osmolality 298 Calcium 9.8 Total Bilirubin 0.57 AST 30 ALT 22 Alkaline Phosphatase 194 H Troponin T High Sens Jug-K-Nxkxrbtjryq Pept Total Protein 6.2 L Albumin 3.4 L Globulin 2.8 Albumin/Globulin Ratio 1.2 Plasma Lactate 11/09/19 11/09/19 11/09/19 06:12 06:12 06:12 WBC RBC Hgb Hct MCV MCH MCHC RDW Std Deviation Plt Count MPV Immature Gran % (Auto) Neut % (Auto) Lymph % (Auto) [place] % (Auto) Eos % (Auto) Baso % (Auto) Immature Gran # (Auto) Neut # (Auto) Lymph # (Auto) [place] # (Auto) Eos # (Auto) Baso # (Auto) D-Dimer, Quantitative Specimen Type Sample Site pH pCO2 pO2 HCO3 Base Excess Oxyhemoglobin ABG O2 Sat (Calculated) ABG O2 Saturation ABG Carboxyhemoglobin ABG Methemoglobin Giles Test A-a O2 Difference Total Hemoglobin Lactate Liter Flow Blood Gas Modality FiO2 % Sodium Potassium Chloride Carbon Dioxide Anion Gap BUN Creatinine Estimated GFR/1.73 m2 BUN/Creatinine Ratio Glucose Calculated Osmolality Calcium Total Bilirubin AST ALT Alkaline Phosphatase Troponin T High Sens 31 H Ets-L-Hcazswvlnys Pept 1408 H Total Protein Albumin Globulin Albumin/Globulin Ratio Plasma Lactate 1.8 11/09/19 11/09/19 08:00 08:00 WBC RBC Hgb Hct MCV MCH MCHC RDW Std Deviation Plt Count MPV Immature Gran % (Auto) Neut % (Auto) Lymph % (Auto) [place] % (Auto) Eos % (Auto) Baso % (Auto) Immature Gran # (Auto) Neut # (Auto) Lymph # (Auto) [place] # (Auto) Eos # (Auto) Baso # (Auto) D-Dimer, Quantitative 7.43 H Specimen Type Sample Site pH pCO2 pO2 HCO3 Base Excess Oxyhemoglobin ABG O2 Sat (Calculated) ABG O2 Saturation ABG Carboxyhemoglobin ABG Methemoglobin Giles Test A-a O2 Difference Total Hemoglobin Lactate Liter Flow Blood Gas Modality FiO2 % Sodium Potassium Chloride Carbon Dioxide Anion Gap BUN Creatinine Estimated GFR/1.73 m2 BUN/Creatinine Ratio Glucose Calculated Osmolality Calcium Total Bilirubin AST ALT Alkaline Phosphatase Troponin T High Sens Elp-W-Rhfzxbqojuh Pept Total Protein Albumin Globulin Albumin/Globulin Ratio Plasma Lactate 2.4 H Orders Category Date Time Status Admit - [facility] Routine AdmDCTranf 11/09/19 11:30 Active Activity - Up with Assistance ORDERED Care 11/09/19 11:30 Active FSBS/Accucheck Result AC + HS Care 11/09/19 11:30 Active Nursing- Assist w/ IS as order ORDERED Care 11/09/19 11:30 Active Saline Loc NOW Care 11/09/19 06:10 Active Turn, Cough and Deep Breathe Q4HR.AWAKE Care 11/09/19 11:30 Active Update & Confirm Home Medicati ROUTINE Care 11/09/19 11:30 Active Diabetic Diet Diet 11/09/19 11:31 Active CHEST-PORTABLE [RAD] Stat Exams 11/09/19 06:10 Completed CTA [CT ANGIOGRM PULMONARY ARTERIES] [CT] Stat Exams 11/09/19 07:53 Completed ABG [RESP] Routine Lab 11/09/19 06:05 Completed BLOOD CULTURE [BLDCUL] Stat Lab 11/09/19 08:00 Results CBC WITH DIFF [HEME] Stat Lab 11/09/19 06:12 Completed COMPREHENSIVE METABOLIC PANEL [CHEM] Stat Lab 11/09/19 06:12 Completed D-DIMER [COAG] Routine Lab 11/09/19 08:00 Completed LACTATE, PLASMA [CHEM] Stat Lab 11/09/19 06:12 Completed LACTATE, PLASMA [CHEM] Stat Lab 11/09/19 08:00 Completed PRO B-NATRIURETIC PEPTIDE Stat Lab 11/09/19 06:12 Completed SPUTUM CULTURE WITH GRAM STAIN [RM] Routine Lab 11/09/19 11:30 Uncollected TROPONIN T HIGH SENSITIVITY Stat Lab 11/09/19 06:12 Completed URINE CULTURE [RM] Routine Lab 11/09/19 11:30 Uncollected 0.9% Sodium Chloride Inj [Ns] 1,000 ml Med 11/09/19 07:56 Discontinued IV 999 mls/hr Albuterol 2.5MG/Ipratrop 0.5MG [Duoneb (A & A)] Med 11/09/19 06:10 Discontinued 3 ml INH NOW ONE Albuterol 2.5MG/Ipratrop 0.5MG [Duoneb (A & A)] Med 11/09/19 11:30 Active 3 ml INH RTQ4H Albuterol 2.5MG/Ipratrop 0.5MG [Duoneb (A & A)] Med 11/09/19 07:56 Discontinued 6 ml INH NOW ONE Budesonide [Pulmicort] Med 11/09/19 19:30 Active 0.5 mg INH RTBID Diphenhydramine [Benadryl] Med 11/09/19 11:04 Discontinued 25 mg IV NOW ONE Furosemide [Lasix] Med 11/09/19 07:58 Discontinued 20 mg IV NOW ONE Insulin Human Regular [Humulin R] Med 11/09/19 16:00 Active See Protocol SUBQ 0700,1100,1600,2100 [place] Alk/Al&mg Hydrox [G.i. Cocktail] Med 11/09/19 11:04 Discontinued 30 ml PO NOW ONE Magnesium Sulfate 1 gm/D5w Med 11/09/19 06:12 Discontinued 1 gm in 100 ml IV NOW Methylprednisolone Sod Succ [Solu-Medrol] Med 11/09/19 06:10 Discontinued 125 mg IV NOW ONE Methylprednisolone Sod Succ [Solu-Medrol] Med 11/09/19 14:00 Active 60 mg IV Q8H Metoclopramide [Reglan] Med 11/09/19 11:04 Discontinued 10 mg IV NOW ONE Ondansetron [Zofran] Med 11/09/19 11:30 Active 4 mg IV Q4H PRN PRN Pantoprazole [Protonix] Med 11/10/19 07:00 Active 40 mg PO DAILY@0700 Pharmacy Order [Vancomycin IV Per Pharmacy] Med 11/09/19 11:45 Ordered 1 each MISC DIRECTED Piperacillin/Tazobactam [Zosyn] 3.375 gm Med 11/09/19 15:00 Active 0.9% Sodium Chloride Inj [Ns] 50 ml IV Q6H Piperacillin/Tazobactam [Zosyn] 4.5 gm Med 11/09/19 07:56 Discontinued 0.9% Sodium Chloride Inj [Ns] 100 ml IV NOW Vancomycin 1 gm/Ns Med 11/09/19 07:56 Discontinued 1 gm in 250 ml IV NOW Aerosol Treatments Routine Oth 11/09/19 06:11 Completed Aerosol Treatments Routine Ot 11/09/19 07:57 Completed Aerosol Treatments Routine Ot 11/09/19 11:30 Active Aerosol Treatments Stat Ot 11/09/19 06:11 Completed Aerosol Treatments Stat Oth 11/09/19 07:57 Completed Oxygen Device Routine Ot 11/09/19 11:30 Active Pulse Oximetry Routine Ot 11/09/19 11:30 Active Pulse Oximetry Stat Oth 11/09/19 06:10 Completed EKG [EKG] Stat Ther 11/09/19 05:53 Draft Venous U/S Bilateral Legs Routine Ther 11/09/19 11:50 Ordered Transfer/Admit Order [TRANSFER] Routine Transfer 11/09/19 11:25 Ordered Result Diagrams: 11/09/19 06:12 11/09/19 06:12 - REASSESSMENT Reassessment #1 Time Reassessed: 06:50 Status: improving Reassessment #2 Time Reassessed: 11:01 Status: improving (Seen and examined by me. Case discussed with Dr. Ramirez at shift change. Patient has had some improvement with duoneb treatments, IV solu- medrol. Given a little lasix for CHF, 2L IVF and Zosyn/vanco for copd exacerbation and sepsis. Lactate is elevated at 2.2. Patient continues to c/o heartburn and reflux. States "I keep regurgitating it up.") - EKG 1 Time of EKG reading by physician:: 07:00 EKG Read and Signed by:: Ben Aceves EKG Interpretation (*Must complete 3 of following elements*): Abnormal Rate: 110 Rhythm: sinus tach [place]: normal QRS: normal AL Interval: normal ST Wave: non-specific ST changes - XRAY 1 XRAY Study: Chest Impression: Abnormal, See EMR Report ( EXAM: CHEST-PORTABLE INDICATION: cough TECHNIQUE: One view COMPARISON: 10/31/2019 FINDINGS: There has been interval clearing of the increased interstitial markings at the lower lung zone seen on the previous study. The lungs are grossly clear. There is no discrete pleural fluid collection or pneumothorax. The cardiomediastinal silhouette and central vasculature are grossly unremarkable. IMPRESSION: No evidence of acute pathology by plain radiograph. Electronically signed by Christopher Ocampo 11/09/2019 8:05 AM 11/09/19 0805 Interpreting Physician: Christopher Ocampo MD Dictated Date/Time: 11/09/19 0803 cc: Juanito Ramirez MD; None,PCP) - CT/MRI 1 CT Study: Angiogram Impression: Abnormal, See EMR Report ( EXAM: CT ANGIOGRM PULMONARY ARTERIES INDICATION: shortness of breath TECHNIQUE: This exam was performed using automated exposure control, adjustment of mA or kV according to patient size, and/or use of iterative reconstruction technique. Thin section axial images and 3-D MIPS were obtained. COMPARISON: 10/25/2019 FINDINGS: There is no evidence of pulmonary embolism. There is thoracic aortic atherosclerotic disease. There is no evidence of thoracic aortic aneurysm or dissection. There is no cardiomegaly. There is a calcified subcarinal lymph node indicating prior granulomatous disease. There is a prominent hiatal hernia that appears larger than the previous study and the esophagus is distended and filled with fluid indicating reflux, stable. There is trace pleural fluid bilaterally and there is mild subsegmental atelectasis at the lung bases. The basilar atelectasis is improved since the previous study. The lungs are essentially clear, otherwise. There is a suspicious lobulated mass in the lateral aspect of the left breast measuring 3.6 x 2.8 cm axially and is approximately stable as compared to the recent prior study. Limited views of the upper abdomen reveals ascites tracking around the left hepatic lobe. There is stable mesenteric edema that is somewhat nodular suggesting consistent with known peritoneal carcinomatosis. There is nothing to suggest local bony metastatic disease. IMPRESSION: 1.Trace pleural effusions at the bases with minimal adjacent atelectasis. 2.No evidence of pulmonary embolism. 3.Nodular mesenteric edema that is essentially stable consistent with known peritoneal carcinomatosis. 4.Stable left breast mass. Electronically signed by Christopher Ocampo 11/09/2019 10:35 AM 11/09/19 1035 Interpreting Physician: Christopher Ocampo MD Dictated Date/Time: 11/09/19 1017 cc: Ben Aceves MD; None,PCP) Comparison with other Films: no changes - CONSULTS/PCP/HOSPITALIST Notification #1 *Consult/PCP/Hospitalist*: CHINA Farias paged at 1100 Consult Disposition: Will see in ED, Admit - CHANGE OF SHIFT REPORT (ED Provider) 1 Report Given and Care Transferred to:: Dr. Aceves Time of Transfer: 07:00 Items Pending: Labs, XRAY Results Departure - Departure Date of Disposition Decision: 11/09/19 Time of Disposition Decision: 11:05 DIAGNOSIS: COPD with exacerbation, Reflux esophagitis Sepsis without acute organ dysfunction Qualifiers: Sepsis type: sepsis due to unspecified organism Qualified Code(s): A41.9 - Sepsis, unspecified organism Congestive heart failure (CHF) Qualifiers: Heart failure type: combined systolic and diastolic Heart failure chronicity: acute on chronic Qualified Code(s): I50.43 - Acute on chronic combined systolic (congestive) and diastolic (congestive) heart failure Disposition: ADMITTED INPATIENT 09 Certified Medical Emergency: Emergent Condition: Fair Referrals and Follow-Ups: None,PCP [Primary Care Provider] - - Critical Care Note This patient required my direct & personal management of CC.: Yes Total Time (mins): 40 Critical Care Statement: This patient required my direct personal management to treat or rule out processes, the absence of which, could potentiallly result in sudden, clinically significant life or limb threatening deterioration. Attestation - Physician/ BRITNEY Attestation Patient care was provided by Advanced Practice Provider:: No The physician spent face to face time with patient:: Yes Advanced Practice Provider documentation review:: Supervising physician onsite and consulted in the evaluation and care of this patient. The physician did have a face to face encounter with the patient.
[2019-11-09] MEDS ORDERED: DUONEB (A & A) INH ONE ×2 (06:10→07:56)
[2019-11-09] MEDS ORDERED: SOLU-MEDROL IV ONE (06:10)
[2019-11-09] MEDS ORDERED: MAGNESIUM SULFATE 1 GM/D5W 1 GM/100 ML IVPB IV ONE (06:12)
[2019-11-09 06:31] LABS: ALLEN TEST YES; BE 2.7 mmoll (-3.0-3.0); BLOOD TYPE ARTERIAL; METHB 1.4 % (0.0-1.5); O2(CT) 14.6 mL/dL (15.0-23.0); O2HB 96.3 % (95.0-99.0); PCO2(98.6) 29 mmHg (35-45); PO2(98.6) 133 mmHg (60-100); SAMPLE BLOOD; SAO2 99.5 % (95.0-100.0); THB 10.6 g/dL (11.5-17.4); pH(98.6) 7.54 (7.35-7.45)
[2019-11-09 06:34] LABS: MODALITY CANNULA
[2019-11-09 07:07] LABS: ALB/GLOB RATIO 1.2; ALBUMIN 3.4 g/dL (3.5-5.0); CALCIUM 9.8 mg/dL (8.8-10.2); CREATININE 1.1 mg/dL (0.5-0.9); POTASSIUM 3.2 mmol/L (3.5-5.1); TOTAL BILIRUBIN 0.57 mg/dL (0.20-1.00); TOTAL PROTEIN 6.2 g/dL (6.3-8.3)
[2019-11-09 07:18] LABS: BASO# 0.07 X1000 (0.0-0.2); BASO% 0.4 % (0.0-0.8); EOS# 0.01 X1000 (0.0-0.7); EOS% 0.1 % (0.0-10.0); HEMATOCRIT 33.2 % (37.0-47.0); HEMOGLOBIN 10.3 g/dL (12.0-16.0); IMM GRAN% 1.6 % (0.0-0.5); LYMPH# 2.52 X1000 (1.2-3.4); LYMPH% 13.5 % (20.5-51.1); MCH 27.8 PG (27-31); MCV 89.5 FL (81-99); MONO# 3.79 X1000 (0.11-0.59); MONO% 20.3 % (1.7-9.3); NEUT# 11.95 X1000 (1.4-6.5); NEUT% 64.1 % (42.2-75.2); PLT 312 X1000 (130-400); RBC 3.71 XMIL (4.2-5.4); RDW 16.3 % (11.5-14.5); WBC 18.64 X1000 (4.8-10.8)
[2019-11-09] MEDS ORDERED: NS 1,000 ML IV ONE (07:56)
[2019-11-09] MEDS ORDERED: ZOSYN 4.5 GM in NS 100 ML IV ONE (07:56)
[2019-11-09] MEDS ORDERED: VANCOMYCIN 1 GM/NS 1 GM/250 ML IVPB IV ONE ×2 (07:56→14:30)
[2019-11-09] MEDS ORDERED: LASIX IV ONE (07:58)
--- NOTE | 2019-11-09 08:07 | Diag Imaging Result Doc PS360 ---
EXAM: CHEST-PORTABLE INDICATION: cough TECHNIQUE: One view COMPARISON: 10/31/2019 FINDINGS: There has been interval clearing of the increased interstitial markings at the lower lung zone seen on the previous study. The lungs are grossly clear. There is no discrete pleural fluid collection or pneumothorax. The cardiomediastinal silhouette and central vasculature are grossly unremarkable. IMPRESSION: No evidence of acute pathology by plain radiograph. Electronically signed by Christopher Ocapmo 11/09/2019 8:05 AM
--- NOTE | 2019-11-09 09:36 | EKG Report ---
Test Performed on : 11/09/2019 06:03:43 AM Test Reason : SOB Blood Pressure : / mmHG Vent. Rate : 110 BPM Atrial Rate : 110 BPM P-R Int : 130 ms QRS Dur : 088 ms QT Int : 340 ms P-R-T Axes : 067 048 070 degrees QTc Int : 460 ms Sinus tachycardia. Nonspecific ST and T wave abnormality Abnormal ECG When compared with ECG of 25-OCT-2019 16:04, (Unconfirmed) No significant change was found Unconfirmed Result
--- NOTE | 2019-11-09 10:38 | Diag Imaging Result Doc PS360 ---
EXAM: CT ANGIOGRM PULMONARY ARTERIES INDICATION: shortness of breath TECHNIQUE: This exam was performed using automated exposure control, adjustment of mA or kV according to patient size, and/or use of iterative reconstruction technique. Thin section axial images and 3-D MIPS were obtained. COMPARISON: 10/25/2019 FINDINGS: There is no evidence of pulmonary embolism. There is thoracic aortic atherosclerotic disease. There is no evidence of thoracic aortic aneurysm or dissection. There is no cardiomegaly. There is a calcified subcarinal lymph node indicating prior granulomatous disease. There is a prominent hiatal hernia that appears larger than the previous study and the esophagus is distended and filled with fluid indicating reflux, stable. There is trace pleural fluid bilaterally and there is mild subsegmental atelectasis at the lung bases. The basilar atelectasis is improved since the previous study. The lungs are essentially clear, otherwise. There is a suspicious lobulated mass in the lateral aspect of the left breast measuring 3.6 x 2.8 cm axially and is approximately stable as compared to the recent prior study. Limited views of the upper abdomen reveals ascites tracking around the left hepatic lobe. There is stable mesenteric edema that is somewhat nodular suggesting consistent with known peritoneal carcinomatosis. There is nothing to suggest local bony metastatic disease. IMPRESSION: 1.Trace pleural effusions at the bases with minimal adjacent atelectasis. 2.No evidence of pulmonary embolism. 3.Nodular mesenteric edema that is essentially stable consistent with known peritoneal carcinomatosis. 4.Stable left breast mass. Electronically signed by Christopher Ocampo 11/09/2019 10:35 AM
[2019-11-09] MEDS ORDERED: BENADRYL IV ONE (11:04)
[2019-11-09] MEDS ORDERED: G.I. COCKTAIL PO ONE (11:04)
[2019-11-09] MEDS ORDERED: REGLAN IV ONE (11:04)
[2019-11-09] MEDS ORDERED: VANCOMYCIN IV PER PHARMACY MISC SCH (11:45)
[2019-11-09] MEDS: DUONEB (A & A) INH SCH ×4 (12:25→23:39)
[2019-11-09] MEDS ORDERED: DUONEB (A & A) ONE (12:28)
[2019-11-09] MEDS ORDERED: VANCOMYCIN 1 GM/NS 1 GM/250 ML IVPB ONE (12:57)
[2019-11-09] MEDS ORDERED: MAXIPIME 1 GM in NS 50 ML IV SCH (13:45)
[2019-11-09 14:04] LABS: INR 1.08; PROTIME 14.2 Seconds (11.0-16.0)
--- NOTE | 2019-11-09 14:15 | HISTORY AND PHYSICAL ---
PRIMARY CARE PROVIDER: She uses [facility]. ONCOLOGIST: Vale Gold. CHIEF COMPLAINT: Shortness of breath with green emesis or severe reflux. 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 She states that since her discharge on the she has continued to have severe reflux and shortness of breath however the shortness of breath was worse last night which made her come here. She states that she has not had any fevers, she has not coughed up any colors however she states she has continuous gastric reflux worsening at night along with some spells of diarrhea. She was breathing around 55 times a minute on 4 L nasal cannula when she got here gasping for air. She had been placed on BiPAP by EMS but once she received breathing treatments she was breathing easier and was downgraded to nasal cannula. Currently she is tolerating nasal cannula sitting on the side of the bed still with some tachypnea. She also complains of left-sided abdominal pain. When she was discharge she was sent home with some Omnicef 300 mg p.o. twice a day. White count is 18,000, when she left on the it was only 5000 and pulmonary arteriogram was performed here cause she also had an elevated D-dimer. There is no pulmonary emboli and the nodular mesenteric edema is essentially stable and it was consistent with known peritoneal carcinomatosis with the stable left breast mass. She was seen by Dr. Quinn on the and was scoped by Dr. Cuevas on the 31 of October. They did a EGD with biopsy the esophagus showed that there was esophagitis in the lower 3rd of the esophagus class D involving more than 75% of the esophageal circumference, the stomach had some linear erosions found in the gastric antrum. The duodenum was normal however she still having pretty significant reflux despite being on Carafate and Protonix twice a day. PAST MEDICAL HISTORY: 1. She has got esophagitis. 2. Severe GERD. 3. History of congestive heart failure. 4. Hypertension. 5. COPD. 6. Diabetic diabetes mellitus type 2. 7. Diabetic neuropathy. 8. Left breast cancer with metastasis to the peritoneum. SURGICAL HISTORY: 1. Bilateral tubal ligation. 2. Appendectomy. 3. Ultrasound-guided biopsy of the left breast lesion. 4. Most recently EGD. SOCIAL HISTORY: Lives with family, was a pack per day smoker for 40 years, she has not smoked in the past month. Denies alcohol or illicit drug use. FAMILY HISTORY: Denies. ALLERGIES: No known drug allergies. HOME MEDICATIONS: Not reconciled. REVIEW OF SYSTEMS: Fourteen point review of systems are complete and all were negative except for those mentioned above HPI. PHYSICAL EXAM: Temperature 97.4 degrees, heart rate 117, respiratory rate 23, blood pressure 125/67, O2 saturation 97 percent on 5 L. GENERAL: Ms. Modesta Vegas is a 68-year-old female she is in no acute distress but she is tachypneic, she answers questions appropriately. HEENT: Atraumatic, normocephalic. Pupils equal, round, reactive to light. Extraocular movements intact. Mucous membranes are dry. NECK: Trachea midline. CARDIOVASCULAR: S1, S2. Tachycardic rate, rhythm. No rubs, gallops, murmurs. No lower extremity edema. +2 dorsalis and radial pulses. Negative JVD or carotid bruits. PULMONARY: Mild rhonchi throughout, no respiratory wheezes, she is tachypneic. She is tolerating 5 L nasal cannula . GI: Soft but semifirm in the left upper and lower quadrants. Some tenderness in the left upper quadrant area to mid lower with positive bowel sounds x4. EXTREMITIES: Moves all extremities equally. Full range of motion. NEURO: A and O x3, follows commands. Sensory is intact. SKIN: Warm, dry, intact. LABORATORY DATA: White blood cells 18,000, hemoglobin 10, hematocrit 33, platelet count 312,000. D-dimer 7.43. ABGs pH 7.54, pCO2 29, PO2 33, bicarb 27, base excess 2.7, saturation 96%. Lactate 1.8, sodium 149, potassium 3.2, BUN 15, creatinine is 1.1, glucose 124, calcium 9.8, bilirubin 0.57, AST 30, ALT 22, troponin 31, proBNP 1408, albumin 3.4, lactate 1.8 and went up to 2.4. IMAGING: Chest x-ray no acute findings. Pulmonary arteriogram trace pleural effusions at the bases with minimal adjacent atelectasis. No evidence of pulmonary embolism, nodular mesenteric edema essentially stable consistent with known peritoneal carcinomatosis, stable left breast mass. EKG sinus tachycardia rate 110. ASSESSMENT/PLAN: 1. Dyspnea with chronic obstructive pulmonary disease exacerbation and hypoxemic respiratory failure requiring oxygen nebulizer, steroids, antibiotics have been added for possible pneumonitis and she has recently had pneumonia. Will monitor her in PVC. She did have to have BiPAP earlier. 2. Leukocytosis could be pneumonitis, could be pneumonia. There is not a urinalysis available but it looks like she had strep in her urine back in September so will order a urinalysis with culture and she has been started on broad-spectrum antibiotics. 3. Sepsis. Please see previous numbers. 4. Congestive heart failure without any acute exacerbation. 5. Hypertension waiting for home medications to be reconciled. Looks like she is not on anything for her blood pressure and currently her blood pressure stable in the 120s. 6. Diabetes mellitus type 2, will do pattern blood glucoses and sliding scale insulin. 7. Complaints of severe gastroesophageal reflux disease and wakes her up in the middle of the night with green bile which causes esophagitis that is painful as well. Antiemetics, will do the recommended Protonix is recommended twice a day for 3 months. Will continue her on her Carafate once is reconciled in the computer. 8. Left breast cancer with metastasis to the peritoneum. Will consult Dr. Gold who has been following her. 9. Deep venous thrombosis prophylaxis with a D-dimer is elevated. She was negative for pulmonary embolism. Will get ultrasound of lower extremities then will do SCDs . Dictated by CHINA Faulkner for Mark Barnes MD cc: CHINA Faulkner MD
--- NOTE | 2019-11-09 14:55 | HISTORY AND PHYSICAL ---
ADDENDUM TO HISTORY AND PHYSICAL: Ms. Vegas is a 68-year-old female with a history of severe COPD, left breast metastatic cancer, who was just discharged from the hospital on 11/03/2019 after she spent almost 10 days in the hospital for COPD exacerbation. She comes back because of shortness of breath that her home oxygen is not supplementing, was not enough. Upon presentation, she was found to be hypoxemic on 2 L of oxygen. She was saturating 93%. She was also tachycardic and was breathing about 36 per minute. PHYSICAL EXAMINATION: VITAL: Current vitals: Blood pressure is 103/74, pulse of 110, respirations 24 temperature is normal. Patient is saturation 97%, but on 5 L. GENERAL: Ms. Vegas is a 68-year-old female. She is in bed. She is not in any distress. HEENT: Mucosa is pink and dry. Anicteric. Acyanotic. NECK: Supple. CHEST: Air entry was bilaterally reduced. You could barely hear any added sounds. CARDIOVASCULAR: Tachycardic but no murmur. ABDOMEN: Soft, distended. Some bruises in the lower abdomen from previous Lovenox shots. The patient has a supraumbilical ventral hernia. EXTREMITIES: No pedal edema. TOE LASTER: Patient is awake, alert, and oriented. BREAST: The patient has a mass felt and the left breast at the external quadrant which is very at current to the tissue below. The skin overlying has no changes. IMAGING STUDIES: A chest x-ray shows no evidence of acute pathology. A CT of the lungs showed trace effusions at the bases with adjacent atelectasis. There is no evidence of PE. There is a nodular mesenteric edema that is essentially stable, consistent with known peritoneal carcinomatosis. There is a stable left breast mass. ASSESSMENT: 1. Acute on chronic hypoxemic respiratory failure. 2. Severe chronic obstructive pulmonary disease in moderate to severe exacerbation. The patient has been started on bronchodilation therapy, steroids, and antimicrobial. We are using Zosyn and vancomycin for now. 3. History of metastatic left breast carcinoma, ER positive, AR positive with metastasis to peritoneum. Patient follows up with Dr. Gold. 4. Clinical volume depletion. Patient will continue on IV fluids. 5. Mixed alkalosis (respiratory and metabolic) associated with mildly elevated plasma lactate, all indicative of intravascular depletion. The patient will be started on IV fluids gently overnight. 6. Supraumbilical hernia noted. 7. Known case of large calcified uterine fibroid. 8. Moderate-sized hiatal hernia with suspicion of possible intermittent aspirations. The patient is on proton pump inhibitor and we have advised aspiration precautions to be observed at all times. Please refer to the details of the history and physical that has been dictated by the IRRIGATION MANAGER in the chart. I have reviewed and discussed the plan with her. I have also discussed my findings and the plan with Ms. Vegas. cc: Mark Barnes MD
[2019-11-09] MEDS ORDERED: ZOSYN 3.375 GM in NS 50 ML IV SCH (15:00)
[2019-11-09] MEDS: SOLU-MEDROL IV SCH ×2 (16:47→22:42)
[2019-11-09] MEDS: NS 1,000 ML IV SCH (16:49)
[2019-11-09] MEDS: HUMULIN R SUBQ SCH ×2 (17:28→23:26)
[2019-11-09] MEDS: PULMICORT INH SCH (19:30)
[2019-11-09] MEDS: ZOFRAN IV PRN (19:55)
[2019-11-09] MEDS ORDERED: NORCO-7.5 PO PRN (20:57)
[2019-11-09] MEDS ORDERED: SODIUM CHLORIDE 0.9% INJ ONE (22:28)
[2019-11-09] MEDS ORDERED: PHENERGAN IV ONE (22:28)
[2019-11-09] MEDS: PROTONIX PO SCH (22:42)
[2019-11-10] MEDS: NS 1,000 ML IV SCH (03:05)
[2019-11-10] MEDS: DUONEB (A & A) INH SCH ×6 (03:24→22:47)
[2019-11-10] MEDS: ZOFRAN IV PRN ×2 (04:30→20:49)
[2019-11-10 04:48] LABS: BASO# 0.04 X1000 (0.0-0.2); BASO% 0.3 % (0.0-0.8); HEMATOCRIT 31.6 % (37.0-47.0); HEMOGLOBIN 9.5 g/dL (12.0-16.0); IMM GRAN# 0.22 X1000 (0.0-0.04); IMM GRAN% 1.4 % (0.0-0.5); LYMPH# 1.18 X1000 (1.2-3.4); LYMPH% 7.8 % (20.5-51.1); MCHC 30.1 g/dL (33-37); MCV 89.8 FL (81-99); MONO# 1.68 X1000 (0.11-0.59); MPV 10.3 FL (7.4-10.4); NEUT% 79.5 % (42.2-75.2); PLT 288 X1000 (130-400); RBC 3.52 XMIL (4.2-5.4); RDW 16.7 % (11.5-14.5); WBC 15.22 X1000 (4.8-10.8)
[2019-11-10 06:08] LABS: ALB/GLOB RATIO 0.9; CALCIUM 8.8 mg/dL (8.8-10.2); CREATININE 1.4 mg/dL (0.5-0.9); POTASSIUM 3.6 mmol/L (3.5-5.1); TOTAL BILIRUBIN 0.59 mg/dL (0.20-1.00); TOTAL PROTEIN 6.2 g/dL (6.3-8.3)
[2019-11-10] MEDS ORDERED: PROTONIX PO SCH (07:00)
[2019-11-10] MEDS: ZYVOX 600 MG/D5W 600 MG/300 ML IVPB IV SCH ×2 (07:30→20:45)
[2019-11-10] MEDS: SOLU-MEDROL IV SCH ×2 (07:31→20:49)
[2019-11-10] MEDS: PULMICORT INH SCH ×2 (08:09→19:47)
--- NOTE | 2019-11-10 09:38 | PROGRESS NOTE ---
DATE: 11/10/2019 SUBJECTIVE: This patient is feeling about the same compared with yesterday. She is complaining of severe reflux and she has been having green emesis, bile. I do believe she does not have pneumonia. I think it is pneumonitis due to the reflux and the bile. Pulmonary arteriogram showed basilar atelectasis, which is improved since the previous studies, but the lungs are essentially clear otherwise. This was done yesterday. It shows trace pleural effusion at the bases with minimal adjacent atelectasis, no evidence of pulmonary embolism, nodular mesenteric edema that is essentially stable consistent with unknown peritoneal carcinomatosis, and left breast mass. PHYSICAL EXAMINATION: Vital Signs: Temperature 97.5 degrees, pulse 96, respiratory rate 17, blood pressure 101/81, oxygen saturation 94% on 3 L of nasal cannula. HEENT: Head normocephalic. No trauma. PERRLA. Neck: Supple. No JVD. No masses. Central trachea. Chest: Decreased breath sounds globally with faint end-expiratory wheezing. Some crepitus at the bases. Abdomen: Soft, protuberant. Tenderness to palpation at the level of the periumbilical area and epigastric area. Extremities: Trace lower extremity edema. No clubbing. No cyanosis. Neurological: The patient is awake and alert. She is oriented x3. No focal deficit but generalized weakness. LABORATORY DATA: WBC 15.2, hemoglobin 9.5, hematocrit 31.6, platelets 288,000. Sodium 144, potassium 3.6, chloride 98, bicarbonate 21, BUN 20, creatinine 1.4, glucose 197, calcium 8.8, AST 52, ALT 34, alkaline phosphatase 179, albumin 3. ASSESSMENT AND PLAN: 1. Acute on chronic hypoxemic respiratory failure, this patient was sent home recently with home O2. I do believe she is having an acute chronic obstructive pulmonary disease exacerbation due to her increased reflux and vomiting bile green bile. She has been placed on antibiotics but I do not see any source of infection at this moment. She had a CT angiogram test yesterday of the chest that did not show any infiltrates, but pleural effusion and peritoneal carcinomatosis with left breast cancer/mass. I will continue breathing treatment. I will decrease the amount of steroids from 60 q.8 hours to 40 every 12 hours since her lungs are better today. I instructed the patient to eat sitting up and do not lay flat for at least 2 hours, and she needs to sleep with an inclination of at least 45 degrees for now. 2. Congestive heart failure, not in exacerbation. 3. Possible sepsis. Even though I do not think this patient has a clear infiltrate suggesting pneumonia, this is admitting diagnosis. I will probably continue with antibiotics for 1 more day to see how she does, but I do believe the leukocyte count is reactive to her chronic obstructive pulmonary disease and metastatic disease. 4. Hypertension. Vital signs are stable. Actually, I do not think she has been on blood pressure medication during this hospitalization, so I will hold it. 5. Type 2 diabetes. Continue sliding scale insulin and pattern blood sugar. 6. Severe esophagitis with severe gastroesophageal reflux with nausea and vomiting which is basically bile, aware. Continue proton pump inhibitors twice a day and I will add Carafate to her medications. 7. History of left breast breath cancer with metastasis to the peritoneum. We have placed a consult for Dr. Gold. 8. Deep venous thrombosis prophylaxis. Her D-dimer is elevated. CT angiogram is negative. She does not have any complaints at the level of the lower extremities but we will rule out deep venous thrombosis on this patient. Venous ultrasound has been done, pending report. cc: Abram Washburn MD
[2019-11-10 09:41] LABS: ALLEN TEST YES; BE 0.6 mmoll (-3.0-3.0); BLOOD TYPE ARTERIAL; HCO3-(ACT) 25.1 mmoll (20.0-26.0); METHB 1.1 % (0.0-1.5); O2(CT) 11.5 mL/dL (15.0-23.0); PCO2(98.6) 34 mmHg (35-45); SAMPLE BLOOD; SAO2 84.5 % (95.0-100.0); pH(98.6) 7.46 (7.35-7.45)
[2019-11-10 09:44] LABS: PO2(98.6) 45 mmHg (60-100)
[2019-11-10 09:45] LABS: MODALITY CANNULA; O2HB 81.8 % (95.0-99.0)
[2019-11-10] MEDS: CENTRUM SILVER PO SCH (09:56)
[2019-11-10] MEDS: GLUCOPHAGE PO SCH ×2 (09:56→18:07)
[2019-11-10] MEDS: CARAFATE PO SCH ×4 (09:56→20:49)
[2019-11-10] MEDS: HUMULIN R SUBQ SCH ×3 (09:57→18:07)
[2019-11-10] MEDS: PROTONIX PO SCH ×2 (10:25→20:49)
--- NOTE | 2019-11-10 10:57 | Diag Imaging Result Doc PS360 ---
EXAM: CHEST-2 VIEWS HISTORY: short of breath TECHNIQUE: Two views COMPARISON: 11/09/2019 FINDINGS: The lungs are hyperexpanded. The heart is not enlarged. The vessels are not distended. There are no infiltrates. Tiny bilateral pleural effusions. IMPRESSION: Tiny pleural effusions Electronically signed by Franky Yusuf 11/10/2019 10:55 AM
[2019-11-10] MEDS: ZOSYN 3.375 GM in NS 50 ML IV SCH ×2 (11:55→18:08)
[2019-11-10] MEDS ORDERED: VANCOMYCIN 1,650 MG in NS 250 ML IV SCH (13:00)
--- NOTE | 2019-11-10 16:28 | HEMO/ONC CONSULTATION ---
DATE: 11/10/2019 CONSULTATION REQUESTED BY: Hospitalist service. CONSULTATION FOR: Metastatic breast cancer, patient known. HISTORY OF PRESENT ILLNESS: Ms Byers is known to us as we have recently seen her for metastatic breast cancer. We have seen her once in our office with plans to initiate Ibrance and Femara. However, the patient has had multiple hospitalizations due to her COPD and she has been unable to start either her Femara or her Ibrance. She is in now originally presenting with increased shortness of breath. It is believed that she is having a COPD exacerbation. She did have respiratory failure upon presentation. She also has rather significant GERD symptoms as well. She is currently resting relatively comfortably in the emergency department. She has no other complaints what has already been noted. PAST MEDICAL HISTORY: 1. Significant for CHF. 2. Hypertension. 3. COPD in currently with an acute exacerbation of her COPD. 4. Diabetes. 5. Peripheral neuropathy. 6. Metastatic breast cancer currently on no treatment . PAST SURGICAL HISTORY: 1. Appendectomy. 2. Bilateral tubal ligation. 3. Left breast biopsy. FAMILY MEDICAL HISTORY: She has the daughter who has from breast cancer. SOCIAL HISTORY: Patient smokes about 1 pack cigarettes per day for the past 40 years but only recently quit in September 2019. She denies any illicit drug or alcohol use. REVIEW OF SYSTEMS: Twelve point review of systems has been done and is negative except for expressed in HPI. PHYSICAL EXAMINATION: Vital Signs: Temperature 97.5 degrees, heart rate 101, respirations 28, blood pressure 101/81, O2 saturation 94% on 3 L nasal cannula. General: This is an female lying in hospital bed the emergency department. She has some mild respiratory distress but seems otherwise to be doing okay. HEENT: Head normocephalic atraumatic. Pupils equal, round, reactive. Oral mucosa is normal. Cardiovascular: Tachycardia noted but regular rhythm. Respiratory: Some coarse breath sounds. Again she has some mild distress but she has O2 in place and is oxygenating well. Gastrointestinal: Abdomen slightly distended. Musculoskeletal: No obvious bony abnormalities. Skin: No rashes. Neurologic: Patient is alert and oriented. She is able to talk in complete sentences and answer questions. LABS AND STUDIES: White blood cells are 15.22 down from 18.64, hemoglobin 9.5, platelet count 288,000. She had a CT angio which was negative. ASSESSMENT AND PLAN: 1. Metastatic breast cancer. Again the plan was for the patient start Ibrance and Femara as an outpatient but she has been unable to due to having multiple hospitalizations. She does not seem well enough to begin Ibrance but we are going to go ahead and start Femara. The patient is agreeable. We are also going go ahead and get a palliative care consult at this time. 2. Acute on chronic respiratory failure. Continue current management. Primary team is managing the patient. Continue IV antibiotics, O2 support, bronchodilators. 3. Chronic obstructive pulmonary disease with acute exacerbation. Again as per #2. 4. Leukocytosis. Improving. Continue current treatment as per above. 5. Sepsis. Management as per above. We want thank you for consulting us on Ms. Vegas. We will continue follow along adjust our treatment plan per her hospital course. Dictated by DALJIT Torres for Vale Gold MD cc: Vale Gold MD I have seen and examined the patient and the above note reflects my history, physical exam, assessment and plan. Vale MUJICA
[2019-11-11] MEDS: ZOSYN 3.375 GM in NS 50 ML IV SCH ×5 (02:00→23:18)
[2019-11-11] MEDS: HUMULIN R SUBQ SCH ×5 (02:49→21:34)
[2019-11-11] MEDS: DUONEB (A & A) INH SCH ×5 (03:23→23:25)
[2019-11-11] MEDS: ZYVOX 600 MG/D5W 600 MG/300 ML IVPB IV SCH ×2 (06:40→19:10)
[2019-11-11] MEDS: PULMICORT INH SCH ×2 (08:20→20:05)
[2019-11-11 08:40] LABS: BASO# 0.02 X1000 (0.0-0.2); BASO% 0.2 % (0.0-0.8); IMM GRAN# 0.12 X1000 (0.0-0.04); IMM GRAN% 0.9 % (0.0-0.5); LYMPH% 6.8 % (20.5-51.1); MCH 26.6 PG (27-31); MCV 88.8 FL (81-99); MONO# 1.69 X1000 (0.11-0.59); MONO% 12.7 % (1.7-9.3); MPV 10.2 FL (7.4-10.4); NEUT# 10.53 X1000 (1.4-6.5); NEUT% 79.4 % (42.2-75.2); PLT 358 X1000 (130-400); RBC 3.38 XMIL (4.2-5.4); RDW 16.5 % (11.5-14.5); WBC 13.26 X1000 (4.8-10.8)
[2019-11-11 09:04] LABS: ALB/GLOB RATIO 1.2; ALBUMIN 3.2 g/dL (3.5-5.0); CALCIUM 9.2 mg/dL (8.8-10.2); CREATININE 1.9 mg/dL (0.5-0.9); POTASSIUM 3.3 mmol/L (3.5-5.1); TOTAL BILIRUBIN 0.68 mg/dL (0.20-1.00); TOTAL PROTEIN 5.8 g/dL (6.3-8.3)
[2019-11-11] MEDS: ZOFRAN IV PRN ×2 (10:17→21:32)
[2019-11-11] MEDS: GLUCOPHAGE PO SCH ×2 (10:18→17:37)
[2019-11-11] MEDS: FEMARA PO SCH (10:18)
[2019-11-11] MEDS: SOLU-MEDROL IV SCH ×2 (10:18→21:32)
[2019-11-11] MEDS: CENTRUM SILVER PO SCH (10:18)
[2019-11-11] MEDS: PROTONIX PO SCH ×2 (10:18→21:33)
[2019-11-11] MEDS: CARAFATE PO SCH ×4 (10:18→21:32)
[2019-11-11 10:41] LABS: BANDS 10 % (0-1); LYMPHS 4 % (21-51); MONO 6 % (1-9); SEGS 76 % (42-75)
[2019-11-11] MEDS ORDERED: NS 1,000 ML IV SCH (11:00)
[2019-11-11] MEDS: MIRALAX PO PRN (11:51)
--- NOTE | 2019-11-11 13:41 | PROGRESS NOTE ---
DATE: 11/11/2019 SUBJECTIVE: The patient is feeling about the same compared with yesterday. She is still complaining of severe reflux but the emesis is getting a little bit better. Likely, she has pneumonitis. CT angiogram showed bibasilar atelectasis which is improved compared with previous studies. Palliative care on board. She is Do Not Resuscitate level 1 now. OBJECTIVE: Vital Signs: Temperature 98.8 degrees, pulse 86, respiratory rate 14, blood pressure 117/56, oxygen saturation 99 on 3 L of nasal cannula. HEENT: Head normocephalic. No trauma. PERRLA. Neck: Supple. No JVD. No masses. Central trachea. Chest: Decreased breath sounds globally with faint end expiratory wheezing. Some crepitus at the bases. Abdomen: Protuberant. Tenderness to palpation at the level of the periumbilical area and epigastric area. Extremities: Trace lower extremity edema. No clubbing. No cyanosis. Neurological Examination: The patient is awake and alert. She is oriented x3. No focal deficits but generalized weakness. Laboratory: WBC 13.2, hemoglobin 9, hematocrit 30.0, platelets 358,000. Sodium 141, potassium 3.3, chloride 96, bicarbonate 26, BUN 25, creatinine 1.9, glucose 168, calcium 9.2, albumin 3.2. ASSESSMENT AND PLAN: 1. Acute on chronic hypoxemic respiratory failure. This patient was sent home recently with home oxygen. It looks like she having an acute chronic obstructive pulmonary disease exacerbation. I think this is likely due to her increasing reflux and vomiting green bile. She has been placed on antibiotics. 2. Congestive heart failure, not in exacerbation. 3. Mild acute kidney injury. She will receive some fluids. 4. Possible sepsis. Even though I do not think this patient has a clear infiltrate suggesting pneumonia, this is an admitting diagnosis and she can have an aspiration pneumonia due to her frequent vomiting so I will continue with the same management. White blood cell count is getting better but these white blood cell counts can be reactive due to her metastatic disease. 5. Hypertension. Vital signs are stable. 6. Type 2 diabetes. Continue with the same management. 7. Severe esophagitis LA grade 4. Continue with Protonix twice a day and Carafate. 8. 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 We will continue following the recommendations of Dr. Gold. 9. Deep venous thrombosis prophylaxis. Her D-dimer is elevated. CT angiogram is negative. She is not complaining of lower extremity pain or unilateral swelling. 10. Constipation. I will put this patient on MiraLAX. cc: Abram Washburn MD
[2019-11-12] MEDS: DUONEB (A & A) INH SCH ×7 (03:47→23:45)
[2019-11-12] MEDS: ZOSYN 3.375 GM in NS 50 ML IV SCH ×3 (05:52→18:47)
[2019-11-12] MEDS: ZYVOX 600 MG/D5W 600 MG/300 ML IVPB IV SCH (06:30)
[2019-11-12] MEDS: HUMULIN R SUBQ SCH ×4 (07:38→21:43)
[2019-11-12] MEDS: PULMICORT INH SCH ×2 (07:53→22:01)
[2019-11-12 08:50] LABS: BASO# 0.01 X1000 (0.0-0.2); BASO% 0.1 % (0.0-0.8); HEMOGLOBIN 9.2 g/dL (12.0-16.0); IMM GRAN# 0.08 X1000 (0.0-0.04); IMM GRAN% 0.7 % (0.0-0.5); LYMPH# 1.05 X1000 (1.2-3.4); LYMPH% 9.3 % (20.5-51.1); MCH 27.3 PG (27-31); MCHC 30.7 g/dL (33-37); MONO# 1.79 X1000 (0.11-0.59); MONO% 15.9 % (1.7-9.3); NEUT# 8.31 X1000 (1.4-6.5); PLT 382 X1000 (130-400); RBC 3.37 XMIL (4.2-5.4); RDW 16.4 % (11.5-14.5); WBC 11.24 X1000 (4.8-10.8)
[2019-11-12] MEDS: SOLU-MEDROL IV SCH ×2 (09:01→21:44)
[2019-11-12] MEDS: FEMARA PO SCH (09:01)
[2019-11-12] MEDS: PROTONIX PO SCH (09:01)
[2019-11-12] MEDS: CARAFATE PO SCH ×4 (09:01→21:42)
[2019-11-12] MEDS: GLUCOPHAGE PO SCH (09:01)
[2019-11-12] MEDS: CENTRUM SILVER PO SCH (09:01)
[2019-11-12 09:03] LABS: ALBUMIN 2.9 g/dL (3.5-5.0); CALCIUM 8.9 mg/dL (8.8-10.2); CREATININE 2.6 mg/dL (0.5-0.9); POTASSIUM 3.1 mmol/L (3.5-5.1); TOTAL BILIRUBIN 0.76 mg/dL (0.20-1.00); TOTAL PROTEIN 5.8 g/dL (6.3-8.3)
[2019-11-12] MEDS ORDERED: ALBUMIN 25% IV ONE (09:38)
[2019-11-12] MEDS: PHENERGAN IV PRN ×2 (11:39→18:48)
[2019-11-12] MEDS: MBX SOLUTION MT PRN ×2 (11:43→18:53)
[2019-11-12] MEDS: 1/2 NS 1,000 ML IV SCH (11:45)
[2019-11-12 14:34] LABS: LYMPHS 12 % (21-51); MONO 5 % (1-9); NRBC 3 % (0-0); SEGS 83 % (42-75)
[2019-11-12] MEDS: REGLAN IV SCH ×3 (14:46→21:45)
--- NOTE | 2019-11-12 15:17 | PROGRESS NOTE ---
DATE: 11/12/2019 SUBJECTIVE: The patient is still complaining of nausea and vomiting. She has a history of diabetes. She was scoped recently and they found severe esophagitis LA grade D. She has been placed on Protonix but I will stop the pill and I will put her on IV treatment since she is not keeping anything down. Her kidney function is getting worse even though she received some fluids. I will give her albumin today and also I will continue with a low dose of half NS to see how she does. If this kidney function gets worse, likely I will need to get Nephrology Department on board. OBJECTIVE: Vital Signs: Temperature 97.6 degrees, pulse 97, respiratory rate 16, blood pressure 124/100, oxygen saturation 100% on 3 L of nasal cannula. HEENT: Head normocephalic. No trauma. PERRLA. Neck: Supple. No JVD. No masses. Central trachea. Chest: Decreased breath sounds globally with faint end expiratory wheezing. Some crepitus at the bases. Abdomen: Soft, protuberant. Tenderness to palpation at the level of the periumbilical area and epigastric area. Extremities: There is 2+ lower extremity edema. No clubbing. No cyanosis. Neurological: The patient is awake, alert. She is oriented. No focal deficit but generalized weakness. LABORATORY: WBC 11.2, hemoglobin 9.2, hematocrit 30.0, platelets 282,000. Sodium 142, potassium 3.1, chloride 98, bicarbonate 27, BUN 30, creatinine 2.6, glucose 137, calcium 8.9, AST 31, ALT 37, alkaline phosphatase 149, albumin 2.9. ASSESSMENT AND PLAN: 1. Acute on chronic hypoxemic respiratory failure. This patient was sent home recently with oxygen. She came in with an acute COPD exacerbation and I do believe this is likely due to her severe reflux and vomiting bile. She has been placed on antibiotics. White blood cell count is getting better. I think the elevated white blood cell count is reactive and not because of a pneumonia. We did a CT that did not show infiltrates. 2. Congestive heart failure, not in exacerbation. 3. Acute kidney injury. I will continue with IV fluids and also albumin. 4. Possible sepsis. Like I mentioned before, she has been placed on antibiotics which I will continue. I do not have any clear infection, but since she is having nausea and vomiting continuously, probably this patient aspirated and she has pneumonitis versus pneumonia. White blood cell count is getting better, but also could be related to the metastatic disease and current condition. 5. Hypertension, stable. 6. Type 2 diabetes. Continue with same management. 7. Severe esophagitis LA grade D. Continue with Protonix twice a day and Carafate. I have switched the p.o. treatment to IV treatment with Protonix. 8. Left breast cancer with metastasis to the peritoneum. We will continue following the recommendations of Dr. Gold. She has been placed on some treatment. 9. Deep vein thrombosis prophylaxis. Her D-dimer is elevated. CT angiogram is negative. She is not complaining of lower extremity pain or unilateral leg swelling. 10. Constipation. Continue MiraLAX. 11. This patient is do not resuscitate level 1. 12. Deep vein thrombosis prophylaxis with heparin, renally dose. 13. Intractable nausea and vomiting. I have switched the Zofran for Phenergan. I will also add Reglan to her medications since she has a history of type 2 diabetes. I am not quite sure if she is having now some problems with gastroparesis. Let us see how she does. I do believe at this moment this patient has a poor prognosis because she is not tolerating p.o. She is still having nausea and vomiting which is intractable basically. I have stopped the Zofran and put her on Phenergan. Hopefully, this will help this patient. cc: Abram Washburn MD
[2019-11-12] MEDS: SODIUM CHLORIDE 0.9% INJ PRN (18:49)
[2019-11-12] MEDS: HEPARIN SUBQ SCH (21:45)
[2019-11-12] MEDS: PROTONIX IV SCH (21:47)
[2019-11-13] MEDS: REGLAN IV SCH ×4 (03:45→22:18)
[2019-11-13] MEDS: PHENERGAN IV PRN ×2 (04:19→17:21)
[2019-11-13] MEDS: DUONEB (A & A) INH SCH ×5 (04:45→22:14)
[2019-11-13] MEDS: HUMULIN R SUBQ SCH ×4 (05:59→22:42)
[2019-11-13] MEDS: ZOSYN 3.375 GM in NS 50 ML IV SCH ×4 (06:28→17:41)
[2019-11-13 08:11] LABS: BASO# 0.02 X1000 (0.0-0.2); BASO% 0.1 % (0.0-0.8); EOS# 0.02 X1000 (0.0-0.7); EOS% 0.1 % (0.0-10.0); IMM GRAN# 0.11 X1000 (0.0-0.04); IMM GRAN% 0.7 % (0.0-0.5); LYMPH# 0.94 X1000 (1.2-3.4); LYMPH% 5.8 % (20.5-51.1); MCH 26.7 PG (27-31); MONO# 2.19 X1000 (0.11-0.59); MONO% 13.4 % (1.7-9.3); MPV 10.2 FL (7.4-10.4); NEUT# 13.01 X1000 (1.4-6.5); NEUT% 79.9 % (42.2-75.2); PLT 432 X1000 (130-400); RBC 3.37 XMIL (4.2-5.4); RDW 16.5 % (11.5-14.5); WBC 16.29 X1000 (4.8-10.8)
[2019-11-13 08:19] LABS: MAGNESIUM 1.9 mg/dL (1.5-2.7); PHOSPHORUS 3.5 mg/dL (2.7-4.5)
[2019-11-13] MEDS: PULMICORT INH SCH ×2 (08:22→22:14)
[2019-11-13] MEDS: SOLU-MEDROL IV SCH ×3 (08:46→22:18)
[2019-11-13] MEDS: HEPARIN SUBQ SCH ×2 (08:46→22:18)
[2019-11-13] MEDS: CENTRUM SILVER PO SCH (08:46)
[2019-11-13 08:47] LABS: ALB/GLOB RATIO 1.4; ALBUMIN 3.4 g/dL (3.5-5.0); CALCIUM 9.2 mg/dL (8.8-10.2); CREATININE 3.4 mg/dL (0.5-0.9); POTASSIUM 3.1 mmol/L (3.5-5.1); TOTAL BILIRUBIN 1.09 mg/dL (0.20-1.00); TOTAL PROTEIN 5.8 g/dL (6.3-8.3)
[2019-11-13] MEDS: CARAFATE PO SCH ×4 (08:47→22:17)
[2019-11-13] MEDS: SODIUM CHLORIDE 0.9% INJ SCH ×2 (08:47→22:18)
[2019-11-13] MEDS: 1/2 NS 1,000 ML IV SCH (08:47)
[2019-11-13] MEDS: PROTONIX IV SCH ×2 (08:47→22:18)
--- NOTE | 2019-11-13 09:28 | Diag Imaging Result Doc PS360 ---
CHEST-PORTABLE - 11/13/2019 INDICATION: SOB COMPARISON: 11/10/2019 FINDINGS: There has been significant worsening in multifocal alveolar infiltrates throughout the right lung diffusely. The left lung remains grossly clear. Heart size is top normal. IMPRESSION: Severe worsening in multifocal infiltrates throughout the right lung. Highly concerning for pneumonia. Correlate clinically. Electronically signed by Foreign Taylor 11/13/2019 9:26 AM
[2019-11-13] MEDS: ZYVOX 600 MG/D5W 600 MG/300 ML IVPB IV SCH ×2 (11:10→22:43)
[2019-11-13 11:26] LABS: ALLEN TEST YES; BE 0.2 mmoll (-3.0-3.0); BLOOD TYPE ARTERIAL; HCO3-(ACT) 24.9 mmoll (20.0-26.0); METHB 1.7 % (0.0-1.5); O2(CT) 12.9 mL/dL (15.0-23.0); PCO2(98.6) 38 mmHg (35-45); PO2(98.6) 50 mmHg (60-100); SAMPLE BLOOD; THB 10.7 g/dL (11.5-17.4); pH(98.6) 7.42 (7.35-7.45)
[2019-11-13 11:30] LABS: MODALITY CANNULA
[2019-11-13 11:31] LABS: O2HB 85.8 % (95.0-99.0)
[2019-11-13] MEDS ORDERED: SOLU-MEDROL IV ONE (12:46)
--- NOTE | 2019-11-13 14:17 | PROGRESS NOTE ---
DATE: 11/13/2019 SUBJECTIVE: The patient is having some respiratory distress. Pulmonary Department has evaluated this patient. They have increased the dose of the steroids. I will give her a 1-time dose of high-dose steroids as well since she is wheezing bilaterally and she is having more prolonged expiratory phase. Palliative Care on board, and since this patient is not getting better, we believe hospice is appropriate for this patient. Hematology/Oncology Department has been notified, and they agree with this. I will continue with the same management. I will get Nephrology Department as well to evaluate this patient because the patient has not decided to stop treatment or be on comfort measures only. OBJECTIVE: Vital Signs: Temperature 98.4 degrees, pulse 92, respiratory rate 20, blood pressure 112/90, oxygen saturation 98 on nonrebreather mask. HEENT: Head normocephalic. No trauma. PERRLA. Neck: Supple. Central trachea. Chest: Decreased breath sounds globally with prolonged expiratory phase and wheezing bilaterally. Some crepitus at the bases with some rhonchi as well. Abdomen: Soft. Some tenderness to palpation at the level of the periumbilical area and epigastric area. Extremities: There is 2+ lower extremity edema. No clubbing. No cyanosis. Neurological: The patient is awake, alert. She is following commands. She is oriented. She does have weakness. LABORATORY DATA: WBC 16.2, hemoglobin 9, hematocrit 30, platelets 432,000. Sodium 143, potassium 3.1, chloride 97, bicarbonate 24, BUN 37, creatinine 3.4, glucose 105, calcium 9.2, albumin 3.4. ASSESSMENT AND PLAN: 1. Acute on chronic hypoxemic respiratory failure. This patient was discharged home recently with oxygen. She came in with acute exacerbation of her chronic obstructive pulmonary disease and possible pneumonia. She has been placed on antibiotics. She has been having nausea and vomiting. She is not able to keep anything down. 2. Congestive heart failure. She does have some fluid inside her lungs, but also she has an acute kidney injury on chronic kidney disease. I will continue with the same management for now. 3. Acute kidney injury on chronic kidney disease. This is getting worse on a daily basis. I have requested an evaluation by Nephrology Department to see what we can do about it. 4. Likely sepsis. She has been placed on antibiotics, which I will continue. I added also more coverage. Pulmonary Department on board. Likely due to pneumonia. 5. Pneumonia. As above. 6. Intractable nausea and vomiting. Continue with the same management. 7. 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 For now, will continue with the same management. Dr. Gold is following this patient. I do not think this patient is a candidate for any strong chemotherapy. 8. Hypertension. Stable. 9. Diabetes. Continue with the same management. 10. Deep vein thrombosis prophylaxis. Continue with the same treatment. 11. Constipation. She is on MiraLAX. 12. This patient is DO NOT RESUSCITATE level 1. The patient has been evaluated by the Palliative Care Team, and tomorrow they will have a meeting with the son and the patient at the same time. Likely, this patient will be discharged home with hospice. I do believe she will meet criteria for that. I do not think she is going to get any strong treatment with chemotherapy. She has stage IV metastatic disease. cc: Abram Washburn MD
[2019-11-13] MEDS: ZOSYN 2.25 GM in NS 50 ML IV SCH (17:10)
[2019-11-13] MEDS: FEMARA PO SCH (17:37)
--- NOTE | 2019-11-13 20:28 | NEPHROLOGY CONSULTATION ---
DATE: 11/13/2019 REASON FOR ADMISSION: Shortness of breath with reflux and green emesis. REASON FOR CONSULT: Acute kidney injury. REQUESTING PHYSICIAN: Abram Washburn MD HISTORY OF PRESENT ILLNESS: Ms. Vegas is a 69-year-old female whom we had met this past September 2019 for acute kidney injury, associated with abdominal pain and hypotension with sepsis. The patient's baseline creatinine is 1 to 1.4. The patient has been under the care of Dr. Gold for left breast cancer with metastasis of the peritoneum. She has a history of COPD with increased shortness of breath, and is on albuterol inhalers and Pulmicort at home. The patient also has known severe reflux disease with a recent EGD per Dr. Cuevas, indicating esophagitis to the lower third of the esophagus with class D involving 75% of esophageal circumflex. Stomach had linear erosions found in the gastric antrum. She has remained on Carafate and Protonix. The patient states that she continues to have increased work of breathing. She was started on Zyvox and Zosyn during her hospital stay. At the time of her admission, due to her increased work of breathing she had a pulmonary arteriogram on 11/09. At that time on her admission her creatinine was 1.1, now elevated at 3.4, with decreased urinary output. She denies any fever or chills. She states that she is weak, decreased appetite, has not been eating well. She has been unable to take her medication for her breast cancer. She has had some emesis, some diarrhea stools that have been episodic. No recent falls. Positive weakness. PAST MEDICAL HISTORY: She had a history of acute kidney injury on 09/27/2019, baseline creatinine CKD stage 2, history of esophagitis, severe GERD, congestive heart failure, hypertension, COPD, diabetes mellitus type 2, and left breast cancer with metastasis to the peritoneum. PAST SURGICAL HISTORY: Bilateral tubal ligation, appendectomy, ultrasound- guided biopsy of the left breast lesion, most recently EGD. SOCIAL HISTORY: She lives with her family. She used to be a 1-pack [id number] smoker. She states that she has not smoked in the last month since being sick in September. Denies alcohol or illicit drug use. FAMILY HISTORY: Negative for kidney disease. ALLERGIES: Listed as no known drug allergies. HOME MEDICATIONS: Glucophage, Spiriva, prednisone, Centrum Silver, Protonix, Omnicef, Carafate, ProAir HFA, Lasix, Prinzide, Prilosec, Norvasc. REVIEW OF SYSTEMS: Review of systems x10, with pertinent positives listed above in the HPI. PHYSICAL EXAMINATION: Vital signs: Temperature 98.4 degrees, blood pressure 112/90, heart rate 92, respirations are 20. She has had 1400 in. She has had zero recorded out. This is a 69-year- old female. She appears ill. She is in no acute distress. Her skin is warm and dry.HEENT: Normocephalic, atraumatic. Conjunctivae are pale, slightly jaundiced. Neck is supple. Trachea midline. No evidence of JVD. Cardiovascular: Regular rate and rhythm. No appreciable murmur or gallop. Her lungs have poor inspiratory effort. She has some bilateral wheezing with rhonchi. No crackles auscultated. Remains on O2 support of 40%. Abdomen is soft, nontender. Positive bowel sounds. Genitourinary: Not inspected. Extremities have 2+ lower extremity edema. No clubbing or cyanosis. Neurological: She is awake and alert, able to follow commands. Able to assist with review of systems for verification. LABORATORY DATA: Sodium 143, potassium 3.1, chloride 97, CO2 is 24, BUN 37, creatinine 3.4, glucose 105. The patient's anion gap is 22. Her calcium is 9.2, phosphorus 3.5, magnesium 1.9. The patient's albumin is 3.4. White count 16.29, hemoglobin 9, hematocrit 30, platelet count 432,000. ABG pH 7.42, CO2 is 38, pO2 is 50, bicarbonate 24.9 on 40% face mask. DIAGNOSTIC DATA: Chest x-ray shows worsening of multifocal infiltrates to the right lung concerning for pneumonia. She currently remains on inhalers along with prednisone. ASSESSMENT AND PLAN: 1. Acute kidney injury, acute tubular necrosis secondary to IV contrast, pneumonia. The patient also had a pulmonary arteriogram on 11/09 upon her arrival, which was negative. Physicians have stopped her lisinopril/hydrochlorothiazide, her Lasix, her metformin and her Omnicef that she had been on at home. She has recently been placed as a Do Not Resuscitate/Allow Natural level 1. Family has spoken to the primary care in regards with possible discharge home with hospice. 2. Electrolytes, acid-base balance and anemia. These are acceptable. 3. Sepsis. We will change her antibiotics to renal dose. 4. Left breast cancer with metastasis. This is being followed by Dr. Gold. The patient has been started on Femara on 11/11/2019, with a bump in her creatinine. We would like to thank you for allowing us to follow with this patient. Dictated by CHINA Nolen for Manny Vazquez MD Discussed with Paul Garcia on 11/13/19. I agree with the above assessment and plan of care. cc: CHINA Nolen MD [facility] CENTERRosa Maria
--- NOTE | 2019-11-13 22:48 | CONSULTATION ---
DATE OF CONSULTATION: 11/13/2019 CHIEF COMPLAINT: Shortness of breath and emesis. HISTORY OF PRESENT ILLNESS: This is a 69-year-old female with a medical history of COPD, type 2 diabetes mellitus, hepatitis C and left-sided breast cancer with metastasis to the peritoneum. She has a complaint of nausea, and vomiting and shortness of breath. Patient's recent CTA revealed trace pleural effusions at the bases with minimal atelectasis. No pulmonary embolism. Nodular mesenteric edema that is essentially stable consistent with known peritoneal carcinomatosis. PAST MEDICAL HISTORY: 1. Esophagitis. 2. Severe GERD. 3. History of congestive heart failure. 4. Hypertension. 5. COPD. 6. Diabetes mellitus type 2. 7. Diabetic neuropathy. 8. Left breast cancer with metastasis to the peritoneum. PAST SURGICAL HISTORY: 1. Bilateral tubal ligation. 2. Appendectomy. 3. Ultrasound-guided biopsy to the left breast lesion. 4. Recent EGD. SOCIAL HISTORY: Lives at home with family. Smokes a pack per day for 4 years, nonsmoker for 1 month. Denies alcohol or illicit drug use. FAMILY HISTORY: Denies. ALLERGIES: No known drug allergies. HOME MEDICINES: Please see home reconciliation list. REVIEW OF SYSTEMS: A 10-point review of systems was conducted and the pertinent is listed within the HPI, otherwise noncontributory. PHYSICAL EXAMINATION: VITAL SIGNS: Temperature 97.4, heart rate 117, respiratory rate 21, blood pressure 122/96, O2 saturation 100%, has Venturi mask in place. GENERAL: This is a 69-year-old ill-appearing female sitting up in chair. Nausea noted. HEENT: Head is atraumatic, normocephalic. Pupils equal and reactive. NECK: Supple. Trachea midline. CARDIOVASCULAR: S1, S2 auscultated. No gallops, murmurs or rubs. Plus-2 dorsalis and radial pulses. No lower extremity edema. PULMONARY: Mild rhonchi throughout. No respiratory wheezes. O2 in place. GASTROINTESTINAL: Soft, semi firm with tenderness in the left upper quadrant with positive bowel sounds times 4. SKIN: Warm, dry and intact. NEUROLOGIC: Alert and oriented times 3. EXTREMITIES: Has full range of motion. Moves equally. LABORATORY DATA: White blood cells 16.29. Red blood cells 3.37. Hemoglobin 9.0. Hematocrit 30.0. Blood gases: pH 7.42, PCO2 of 38, PO2 of 50, HCO3 of 24.9, oxyhemoglobin 85.8. Sodium 143. Potassium 3.1. Chloride 97. Carbon dioxide 24. BUN 37. Creatinine 3.4. AST 24. ALT 31. Glucose 105. Albumin 3.4. Total protein 5.8. DIAGNOSTIC DATA: Chest x-ray mentioned in the HPI. ASSESSMENT AND PLAN: 1. Acute on chronic respiratory failure. Continue supplemental O2 as prescribed. 2. Pneumonia. Continue antibiotics, and supplemental O2 and bronchodilators. 3. Chronic obstructive pulmonary disease. Continue bronchodilators. 4. Metastatic breast cancer. Oncology following. 5. Continue gastrointestinal prophylaxis with Protonix 40 mg intravenous every 12 hours scheduled. Continue with Phenergan as needed for nausea. TIME: I spent 35 minutes on this patient. Thank you for the courtesy of this consult. Dictated by CHINA Costa for Katia Luna MD cc: CHINA Costa MD
[2019-11-14] MEDS: REGLAN IV SCH ×4 (02:07→21:05)
[2019-11-14] MEDS: SOLU-MEDROL IV SCH ×5 (03:08→21:04)
[2019-11-14] MEDS: DUONEB (A & A) INH SCH ×6 (03:40→20:28)
[2019-11-14 03:42] LABS: URINE SOURCE CLEAN CATCH
[2019-11-14 03:45] LABS: BILIRUBIN URINE NEGATIVE (NEGATIVE); BLOOD URINE TRACE (NEGATIVE); COLOR YELLOW; GLUCOSE URINE NEGATIVE (NEGATIVE); KETONE URINE 10 mg/dL (NEGATIVE); LEUKOCYTES URINE NEGATIVE (NEGATIVE); NITRITE URINE NEGATIVE (NEGATIVE); PH URINE 5.5; PROTEIN URINE 50 mg/dL (NEGATIVE); SP GRAVITY URINE 1.031; TURBIDITY URINE HAZY (CLEAR); UROBILINOGEN URINE NORMAL (NORMAL)
[2019-11-14] MEDS: ZOSYN 2.25 GM in NS 50 ML IV SCH ×3 (03:47→15:32)
[2019-11-14 03:57] LABS: UR CREAT RANDOM 107.4 mg/dL (11-20); UR PROT RANDOM 156.2 mg/dL
[2019-11-14 04:20] LABS: UR EPITHELIAL CELLS <10 /HPF (<10); URINE BACTERIA NEGATIVE /HPF; URINE RBC 20-40 /HPF (<10); URINE WBC <10 /HPF (<10)
[2019-11-14 04:21] LABS: URINE CASTS NONE SEEN; URINE CRYSTALS NONE SEEN; URINE SMALL ROUND CELLS NONE SEEN; URINE YEAST PRESENT
[2019-11-14] MEDS: HUMULIN R SUBQ SCH ×4 (06:37→21:05)
[2019-11-14] MEDS: PULMICORT INH SCH ×2 (08:11→20:28)
--- NOTE | 2019-11-14 08:42 | PROGRESS NOTE ---
DATE: 11/14/2019 SUBJECTIVE: The patient seems to be resting a little bit better today. She is on a Venturi mask. She is receiving high doses of steroids and it seems to be working. I will continue with the same management. She has an appointment with Palliative Care and her son in the afternoon. Depending on her progression, likely this patient will need to go to a hospice care. OBJECTIVE: Vital Signs: Temperature 97.7 degrees, pulse 105, respiratory rate 20, blood pressure 146/82, oxygen saturation 100% on a Venturi mask. HEENT: Head normocephalic, no trauma. PERRLA. Neck: Supple. No JVD. No masses. Central trachea. Chest: Decreased breath sounds globally with prolonged expiratory phase and wheezing bilaterally, but compared with yesterday the wheezing is better. Some crepitus at the bases with some rhonchi as well. Abdomen: Soft. Some tenderness to palpation at the level of the periumbilical area and epigastric area. Extremities: 2+ lower extremity edema. No clubbing. No cyanosis. Neurological examination: The patient is sleepy, but arousable. She is oriented. She is following commands. LABORATORY: Pending lab work at this moment. ASSESSMENT AND PLAN: 1. Acute on chronic hypoxemic respiratory failure. This patient was discharged home recently with oxygen. She came back in acute exacerbation of her chronic obstructive pulmonary disease and possible pneumonia. She has been placed on antibiotics, steroids, oxygen supplementation and breathing treatment. 2. Intractable nausea and vomiting. Continue with same management. 3. Congestive heart failure. She does have some fluid inside her lungs, but also she has an acute kidney injury. We will continue with the same management for now. 4. Likely sepsis due to pneumonia, leukocytosis, tachypnea, tachycardia. Aware. 5. Pneumonia as above. 6. 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 For now, we will continue with same management. Dr. Gold on board. 7. Hypertension, stable. 8. Diabetes. Continue with same management. 9. Constipation. She is on MiraLAX. 10. This patient is do not resuscitate level 1. cc: Abram Washburn MD
[2019-11-14 08:51] LABS: BASO# 0.02 X1000 (0.0-0.2); BASO% 0.1 % (0.0-0.8); HEMATOCRIT 27.7 % (37.0-47.0); HEMOGLOBIN 8.5 g/dL (12.0-16.0); IMM GRAN# 0.15 X1000 (0.0-0.04); IMM GRAN% 0.9 % (0.0-0.5); LYMPH# 1.42 X1000 (1.2-3.4); LYMPH% 8.4 % (20.5-51.1); MCH 27.2 PG (27-31); MCHC 30.7 g/dL (33-37); MCV 88.5 FL (81-99); MONO% 5.9 % (1.7-9.3); MPV 10.1 FL (7.4-10.4); NEUT# 14.25 X1000 (1.4-6.5); NEUT% 84.7 % (42.2-75.2); PLT 429 X1000 (130-400); RBC 3.13 XMIL (4.2-5.4); RDW 16.5 % (11.5-14.5); WBC 16.84 X1000 (4.8-10.8)
[2019-11-14 08:52] LABS: CALCIUM 9.3 mg/dL (8.8-10.2); TOTAL BILIRUBIN 0.71 mg/dL (0.20-1.00)
[2019-11-14] MEDS: CENTRUM SILVER PO SCH (08:56)
[2019-11-14] MEDS: FEMARA PO SCH (08:56)
[2019-11-14] MEDS: CARAFATE PO SCH ×4 (08:56→21:05)
[2019-11-14] MEDS: HEPARIN SUBQ SCH ×2 (08:56→21:04)
[2019-11-14] MEDS: PROTONIX IV SCH ×2 (08:57→21:04)
[2019-11-14] MEDS: SODIUM CHLORIDE 0.9% INJ SCH ×2 (08:57→21:04)
[2019-11-14] MEDS ORDERED: KLOR-CON PO ONE (10:34)
[2019-11-14] MEDS: ZYVOX 600 MG/D5W 600 MG/300 ML IVPB IV SCH ×2 (11:23→23:31)
[2019-11-14 12:58] LABS: BANDS 6 % (0-1); LYMPHS 2 % (21-51); MONO 4 % (1-9); SEGS 86 % (42-75)
[2019-11-14 12:59] LABS: ANISOCYTOSIS 1+
--- NOTE | 2019-11-14 18:02 | NEPHROLOGY PROGRESS NOTE ---
DATE: 11/14/2019 SUBJECTIVE: She is sitting up on the side of the bed. Still remains short of breath. OBJECTIVE: Vital Signs: Blood pressure 149/72, heart rate 90, respirations 20, afebrile. Intake and output are incomplete. General: Physical exam again sitting up with a closed face mask. No acute distress, however. Skin: Warm and dry. Neck: Neck veins are not distended. Heart: Irregular and mildly tachycardic around 110. No gallops. Lungs: Have crackles bilaterally. Abdomen: Soft, nontender. Bowel sounds are present. Extremities: 1+ edema. No clubbing or cyanosis. IMPRESSION: 1. Acute kidney injury with baseline creatinine of 1.1. 2. Acute tubular necrosis secondary to contrast induced nephropathy. Creatinine is improved today compared to yesterday. No specific intervention is required. I will give a single dose of potassium supplementation. cc: Manny Vazquez MD
--- NOTE | 2019-11-14 22:21 | PROGRESS NOTE ---
DATE: 11/14/2019 We appreciated progress of care, complications, change in diagnosis and instructions to patient. SUBJECTIVE: We note the level of consciousness, bed/chair position, family presence if any, level of lethargy, feelings of symptoms and changes from baseline condition/symptoms. This is a 69-year- old female lying in bed resting well without distress. Weakness noted. She has O2 at 15% per Venturi mask. OBJECTIVE: Vital Signs: Temperature 98.4, pulse 95, respirations 16, blood pressure 146/102, oxygen 100% Venturi mask with 15% oxygen flow. We reviewed the EMR, current values for pulse rate, blood pressure, respiratory rate and pulse oximetry. Also noted other values and trend of present. General: Lying in bed in no acute distress, appearing ill. HEENT: Head is normocephalic, atraumatic. Mucosa moist. Trachea midline. Pupils equal and reactive. Respiratory: Mild rhonchi throughout lungs bilaterally. No wheezing. Gastrointestinal: Soft, semi firm with tenderness in the left upper quadrant with positive bowel sounds times 4. Skin: Warm, dry and intact. Neurologic: Alert and oriented times 3. Extremities: With full range of motion, moves equally. LABORATORIES AND RADIOLOGY: White blood cells 16.84. Red blood cells 3.13. Hemoglobin 8.5. Hematocrit 27.7. Sodium 142. Potassium 3.0. Chloride 98. Carbon dioxide 25. BUN 38. Creatinine 3.0. Glucose 164. AST 16. ALT 25. MANAGEMENT: [id number] evaluation completed by Dr. Luna. CHINA did scribing only. ASSESSMENT AND PLAN: 1. Acute on chronic respiratory failure. Continue supplemental oxygen as prescribed. 2. Pneumonia. Continue antibiotics, supplemental O2 and bronchodilators. 3. Chronic obstructive pulmonary disease. Continue bronchodilators. 4. Metastatic breast cancer. Oncology following. 5. Continue gastrointestinal prophylaxis with Protonix 40 mg IV every 12 hours scheduled. 6. Continue Phenergan as needed for nausea. TIME: Spent 33 minutes with this patient. Input was appreciated from admitting MD and other teams on the case. Dictated by CHINA Costa for Katia Luna MD cc: CHINA Costa MD
[2019-11-14] MEDS: ZOFRAN IV PRN (23:31)
[2019-11-15] MEDS: DUONEB (A & A) INH SCH ×7 (00:08→23:41)
[2019-11-15] MEDS: ZOSYN 2.25 GM in NS 50 ML IV SCH ×4 (02:30→23:43)
[2019-11-15] MEDS: SOLU-MEDROL IV SCH ×4 (02:32→20:40)
[2019-11-15] MEDS: REGLAN IV SCH ×4 (02:32→20:39)
[2019-11-15 04:46] LABS: ALLEN TEST YES; BE 4.1 mmoll (-3.0-3.0); BLOOD TYPE ARTERIAL; HCO3-(ACT) 28.1 mmoll (20.0-26.0); PCO2(98.6) 36 mmHg (35-45); PO2(98.6) 98 mmHg (60-100); SAMPLE BLOOD; pH(98.6) 7.49 (7.35-7.45)
[2019-11-15 04:47] LABS: MODALITY VENTIMASK
[2019-11-15] MEDS: HUMULIN R SUBQ SCH ×4 (06:12→20:50)
[2019-11-15] MEDS: FEMARA PO SCH (08:08)
[2019-11-15] MEDS: CARAFATE PO SCH ×3 (08:08→20:50)
[2019-11-15] MEDS: HEPARIN SUBQ SCH ×2 (08:08→20:39)
[2019-11-15] MEDS: CENTRUM SILVER PO SCH (08:08)
[2019-11-15] MEDS: PROTONIX IV SCH ×2 (08:09→20:40)
[2019-11-15] MEDS: SODIUM CHLORIDE 0.9% INJ SCH ×2 (08:09→20:40)
[2019-11-15] MEDS: PULMICORT INH SCH ×2 (08:20→20:13)
[2019-11-15 09:01] LABS: ALB/GLOB RATIO 1.4; ALBUMIN 3.2 g/dL (3.5-5.0); CALCIUM 9.5 mg/dL (8.8-10.2); CREATININE 2.3 mg/dL (0.5-0.9); POTASSIUM 3.6 mmol/L (3.5-5.1); TOTAL BILIRUBIN 0.71 mg/dL (0.20-1.00); TOTAL PROTEIN 5.5 g/dL (6.3-8.3)
[2019-11-15 09:03] LABS: BASO# 0.02 X1000 (0.0-0.2); BASO% 0.1 % (0.0-0.8); HEMATOCRIT 26.5 % (37.0-47.0); IMM GRAN# 0.19 X1000 (0.0-0.04); IMM GRAN% 1.4 % (0.0-0.5); LYMPH# 1.04 X1000 (1.2-3.4); LYMPH% 7.5 % (20.5-51.1); MCH 26.8 PG (27-31); MCHC 30.2 g/dL (33-37); MCV 88.9 FL (81-99); MONO# 0.98 X1000 (0.11-0.59); MONO% 7.1 % (1.7-9.3); MPV 9.8 FL (7.4-10.4); NEUT# 11.58 X1000 (1.4-6.5); NEUT% 83.9 % (42.2-75.2); PLT 479 X1000 (130-400); RBC 2.98 XMIL (4.2-5.4); RDW 16.5 % (11.5-14.5); WBC 13.81 X1000 (4.8-10.8)
[2019-11-15 11:56] LABS: LYMPHS 8 % (21-51); MONO 7 % (1-9); NRBC 1 % (0-0); SEGS 83 % (42-75)
[2019-11-15 11:57] LABS: ANISOCYTOSIS 1+; HYPOCHROM 2+; LARGE PLATELETS OCCASIONAL; MICROCYTOSIS 1+
[2019-11-15] MEDS: ZYVOX 600 MG/D5W 600 MG/300 ML IVPB IV SCH ×2 (11:57→23:43)
--- NOTE | 2019-11-15 14:48 | PROVIDER PROGRESS NOTE ---
Progress Note atient: MARIFER GEE ADM Date: 11/09/19 MR#: [id number] : 1950 80 Family Physician: None,PCP DATE: 11/14/2019 We appreciated progress of care, complications, change in diagnosis and instructions to patient. SUBJECTIVE: We note the level of consciousness, bed/chair position, family presence if any, level of lethargy, feelings of symptoms and changes from baseline condition/symptoms. This is a 69-year- old female lying in bed resting well without distress. Weakness noted. She has O2 at 15% per Venturi mask. OBJECTIVE: Vital Signs: Temperature 98.2, pulse 92 respirations 16, blood pressure 131/71, oxygen 100% Venturi mask with 15% oxygen flow. We reviewed the EMR, current values for pulse rate, blood pressure, respiratory rate and pulse oximetry. Also noted other values and trend of present. General: Lying in bed in no acute distress, appearing ill. HEENT: Head is normocephalic, atraumatic. Mucosa moist. Trachea midline. Pupils equal and reactive. Respiratory: Mild rhonchi throughout lungs bilaterally. No wheezing. Gastrointestinal: Soft, semi firm with tenderness in the lower and left upper quadrants with positive bowel sounds times 4. Skin: Warm, dry and intact. Neurologic: Alert and oriented times 3. Extremities: With full range of motion, moves equally. LABORATORIES AND RADIOLOGY: White blood cells 13.81. Red blood cells 2.98. Hemoglobin 8.0, Hematocrit 26.5. Management, and [id number] evaluation completed by Dr. Luna. CHINA Costa did scribing only. ASSESSMENT AND PLAN: 1. Acute on chronic respiratory failure. Continue supplemental oxygen as prescribed. 2. Pneumonia. Continue antibiotics, supplemental O2 and bronchodilators. 3. Chronic obstructive pulmonary disease. Continue bronchodilators. 4. Metastatic breast cancer. Oncology following. 5. Continue gastrointestinal prophylaxis with Protonix 40 mg IV every 12 hours scheduled. 6. Continue Phenergan as needed for nausea. Input was appreciated from admitting MD and other teams on the case.
[2019-11-15] MEDS: ZOFRAN IV PRN ×2 (15:16→20:36)
--- NOTE | 2019-11-15 21:45 | PROGRESS NOTE ---
DATE: 11/15/2019 SUBJECTIVE: The patient seems to be a little bit more stable compared with 2 days ago. She is still using the Venturi mask. She is still hypoxemic. I will continue with the same management. Palliative Care on board. Depending on her progression, probably this patient will need to go home with hospice. OBJECTIVE: Vital Signs: Temperature 98.2 degrees, pulse 92, respiratory rate 20, blood pressure 131/72, oxygen saturation 100% on a Venturi mask. HEENT: Head normocephalic, no trauma. PERRLA. Neck: Supple. No JVD. No masses. Central trachea. Chest: Decreased breath sounds globally with prolonged expiratory phase and scattered wheezing bilaterally, some crepitus at the bases with some rhonchi as well. Abdomen: Soft. Some tenderness to palpation at the level of the periumbilical area and epigastric area. Extremities: Lower extremity edema 2+. No clubbing. No cyanosis. Neurological: The patient is awake, alert. She is oriented. She is following commands. LABORATORY: WBC 13.8, hemoglobin 8, hematocrit 26.5, platelets 479,000. Sodium 144, potassium 3.6, chloride 101, bicarbonate 26, BUN 36, creatinine 2.3, glucose 160, calcium 9.5, albumin 3.2. ASSESSMENT AND PLAN: 1. Acute on chronic hypoxemic respiratory failure. This patient was recently discharged home with oxygen. She came back with acute chronic obstructive pulmonary disease exacerbation and possible pneumonia. We will continue with antibiotics, steroids, oxygen supplementation, and breathing treatment. Pulmonary Department on board. 2. Intractable nausea and vomiting. Continue with same management. 3. Congestive heart failure. She does have some fluid on her lungs, but also she has an acute kidney injury. We will monitor this carefully. Nephrology Department on board. 4. Likely sepsis due to pneumonia, leukocytosis, tachypnea, and tachycardia. Aware. 5. Pneumonia. As above, continue with antibiotics. 6. 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 For now, we will continue with same management. Dr. Gold on board. 7. Hypertension. Stable. 8. Diabetes. Continue with same management. 9. Constipation. She is on MiraLAX. 10. This patient is DNR level 1. The patient seems to be feeling a little bit better, but she is not able to eat yet. She seems to be feeling a little bit better compared with a couple of days ago. Depending on her progression, she may end up with hospice at home. cc: Abram Washburn MD
[2019-11-16] MEDS: MIRALAX PO PRN (03:24)
[2019-11-16] MEDS: REGLAN IV SCH ×4 (03:25→22:05)
[2019-11-16] MEDS: SOLU-MEDROL IV SCH ×4 (03:25→22:02)
[2019-11-16] MEDS: DUONEB (A & A) INH SCH ×6 (04:21→23:22)
[2019-11-16] MEDS: HUMULIN R SUBQ SCH ×4 (06:13→22:18)
[2019-11-16] MEDS: PULMICORT INH SCH ×2 (08:23→20:07)
[2019-11-16 08:25] LABS: BASO# 0.06 X1000 (0.0-0.2); BASO% 0.4 % (0.0-0.8); HEMATOCRIT 28.8 % (37.0-47.0); HEMOGLOBIN 8.6 g/dL (12.0-16.0); IMM GRAN# 0.32 X1000 (0.0-0.04); LYMPH# 0.98 X1000 (1.2-3.4); LYMPH% 6.2 % (20.5-51.1); MCH 26.8 PG (27-31); MCHC 29.9 g/dL (33-37); MCV 89.7 FL (81-99); MONO# 1.97 X1000 (0.11-0.59); MONO% 12.4 % (1.7-9.3); MPV 9.2 FL (7.4-10.4); NEUT# 12.59 X1000 (1.4-6.5); PLT 562 X1000 (130-400); RBC 3.21 XMIL (4.2-5.4); RDW 16.5 % (11.5-14.5); WBC 15.92 X1000 (4.8-10.8)
[2019-11-16 09:05] LABS: ALB/GLOB RATIO 1.1; CALCIUM 10.2 mg/dL (8.8-10.2); CREATININE 1.6 mg/dL (0.5-0.9); POTASSIUM 3.6 mmol/L (3.5-5.1); TOTAL BILIRUBIN 0.71 mg/dL (0.20-1.00); TOTAL PROTEIN 5.8 g/dL (6.3-8.3)
[2019-11-16 09:29] LABS: MAGNESIUM 1.8 mg/dL (1.5-2.7); PHOSPHORUS 2.6 mg/dL (2.7-4.5)
[2019-11-16] MEDS: ZOSYN 2.25 GM in NS 50 ML IV SCH ×3 (09:41→23:10)
[2019-11-16] MEDS: CENTRUM SILVER PO SCH ×2 (09:42→15:42)
[2019-11-16] MEDS: HEPARIN SUBQ SCH ×2 (09:42→22:02)
[2019-11-16] MEDS: PROTONIX IV SCH ×2 (09:42→22:17)
[2019-11-16] MEDS: FEMARA PO SCH ×2 (09:42→15:42)
[2019-11-16] MEDS: CARAFATE PO SCH ×6 (09:43→22:18)
[2019-11-16] MEDS: CLINIMIX E 4.25%-5% SOLUTION 1,000 ML IV SCH (11:25)
[2019-11-16] MEDS: ZYVOX 600 MG/D5W 600 MG/300 ML IVPB IV SCH ×2 (11:31→22:10)
[2019-11-16 11:46] LABS: ALLEN TEST YES; BLOOD TYPE ARTERIAL; HCO3-(ACT) 29.6 mmoll (20.0-26.0); METHB 0.5 % (0.0-1.5); MODALITY VENTIMASK; O2(CT) 12.2 mL/dL (15.0-23.0); PCO2(98.6) 44 mmHg (35-45); PO2(98.6) 93 mmHg (60-100); SAMPLE BLOOD; SAO2 99.8 % (95.0-100.0); THB 8.8 g/dL (11.5-17.4); pH(98.6) 7.45 (7.35-7.45)
--- NOTE | 2019-11-16 13:46 | PROGRESS NOTE ---
DATE: 11/16/2019 SUBJECTIVE: The patient seems to be breathing a little bit better but she is still having problems eating. She is not tolerating p.o. and she is still nauseated and vomiting, I will start this patient on a little bit of Clinimix, kidney function seems to be getting better. I will get a new x-ray tomorrow as well. PHYSICAL EXAMINATION: Vital Signs: Temperature 98.4 degrees, pulse 78, respiratory rate 24, blood pressure 142/66, oxygen saturation 99 on a Venturi mask. HEENT: Head normocephalic. No trauma. PERRLA. Neck: Supple. No JVD. No masses. Central trachea. Chest: Decreased breath sounds globally with prolonged expiratory phase and scattered bilateral wheezing. Some crepitus at the bases and some rhonchi as well. Abdomen: Soft, some tenderness to palpation at the level of the periumbilical area and epigastric area. Extremities: 2+ lower extremity edema. No clubbing. No cyanosis. Neurological: The patient is awake, alert. She is oriented. She does have generalized weakness. LABORATORY: WBC 15.9, hemoglobin 8.6, hematocrit 28.8, platelet 562,000. Sodium 146, potassium 3.6, chloride 103, bicarbonate 31, BUN 27, creatinine 1.6, glucose 146, calcium 10.2, albumin 3. ASSESSMENT AND PLAN: 1. Acute on chronic hypoxemic respiratory failure, the patient discharged home with oxygen. She came back with acute on chronic obstructive pulmonary disease exacerbation and possible pneumonia. We will continue with antibiotics. I will continue with steroids but I will decrease a little bit the dose today, oxygen supplementation, breathing treatment. Pulmonary Department on board. 2. Intractable nausea and vomiting. Continue with same management. She tolerates some water. 3. Congestive heart failure. She does have some fluid on her lungs and acute kidney injury. We will monitor for now. I will start this patient on a little bit of fluid around 30 mL/h of Clinimix. 4. Likely sepsis due to pneumonia, this patient has leukocytosis. She is tachypneic and tachycardic plus she has a source of infection. 5. Pneumonia as above. 6. Left breast cancer with metastasis to the peritoneal and possible lungs, for now we will continue with same management. Dr. Gold on board. 7. Hypertension stable. 8. Diabetes, continue with same management. 9. Constipation. She is on MiraLAX. 10. This patient is DNR level 1. Overall, her prognosis is poor due to her metastatic disease and multiple comorbidities. Palliative care on board. We will continue to monitor and depending on her outcome, she will need to go home with hospice or we will continue treating this patient. cc: Abram Washburn MD
[2019-11-16] MEDS ORDERED: MORPHINE IV PRN (15:47)
--- NOTE | 2019-11-16 19:20 | PROVIDER PROGRESS NOTE ---
Progress Note Progress Note humbleress Note Dr. Luna Progress Note/Pulmonary and or critical care We appreciated progress of care, Complications, change in diagnosis, and instructions to patient. Subjective: We note the level of consciousness, bed (chair) position, family presence (if any), level of lethargy, feeling of symptoms, and changes from baseline condition/symptom. Objective: Patient awake in bed. No acute distress noted. Vital Signs: We reviewed EMR current values for Pulse rate, Blood pressure, Pulse rate, respiratory rate and Pulse oximetry. Also noted other values and trends if present (e.g. I/O, CVP). T 98.0 , NM 109 , RR 20 , BP , and SaO2 100 % on VM 15% Physical Examination: General: Lying in bed in no acute distress, appearing ill. HEENT: Head is normocephalic, atraumatic. Mucosa moist. Pupils equal and reactive NECK: Trachea midline. Neck supple. Respiratory: Mild rhonchi throughout lungs bilaterally. No wheezing. Gastrointestinal: Soft, semi firm with tenderness in the lower and left upper quadrants with positive bowel sounds times 4. Skin: Warm, dry and intact. Neurologic: Alert and oriented times 3. Extremities: With full range of motion, moves equally. Management, face to face evaluation by Dr. Luna. CHINA Costa did scribing only. Labs and Radiology: Reviewed available labs and radiology values available at time of EMR review. Laboratory Results 11/15/19 11/16/19 11/16/19 19:32 05:39 08:16 WBC RBC Hgb Hct MCV MCH MCHC RDW Std Deviation Plt Count MPV Immature Gran % (Auto) Neut % (Auto) Lymph % (Auto) [place] % (Auto) Eos % (Auto) Baso % (Auto) Immature Gran # (Auto) Neut # (Auto) Lymph # (Auto) [place] # (Auto) Eos # (Auto) Baso # (Auto) Specimen Type Sample Site pH pCO2 pO2 HCO3 Base Excess Oxyhemoglobin ABG O2 Sat (Calculated) ABG O2 Saturation ABG Carboxyhemoglobin ABG Methemoglobin Giles Test A-a O2 Difference Total Hemoglobin Lactate Liter Flow Blood Gas Modality FiO2 % Sodium 146 H Potassium 3.6 Chloride 103 Carbon Dioxide 31 Anion Gap 12 BUN 27 H Creatinine 1.6 H Estimated GFR/1.73 m2 39 BUN/Creatinine Ratio 17 Glucose 146 H POC Glucose 146 H 136 H Calculated Osmolality 298 Calcium 10.2 Phosphorus Magnesium Total Bilirubin 0.71 AST 19 ALT 23 Alkaline Phosphatase 169 H Total Protein 5.8 L Albumin 3.0 L Globulin 2.8 Albumin/Globulin Ratio 1.1 11/16/19 11/16/19 11/16/19 08:16 08:16 10:45 WBC 15.92 H RBC 3.21 L Hgb 8.6 L Hct 28.8 L MCV 89.7 MCH 26.8 L MCHC 29.9 L RDW Std Deviation 16.5 H Plt Count 562 H MPV 9.2 Immature Gran % (Auto) 2.0 H Neut % (Auto) 79.0 H Lymph % (Auto) 6.2 L [place] % (Auto) 12.4 H Eos % (Auto) 0.0 Baso % (Auto) 0.4 Immature Gran # (Auto) 0.32 H Neut # (Auto) 12.59 H Lymph # (Auto) 0.98 L [place] # (Auto) 1.97 H Eos # (Auto) 0.00 Baso # (Auto) 0.06 Specimen Type ARTERIAL Sample Site R RADIAL pH 7.45 pCO2 44 pO2 93 HCO3 29.6 H Base Excess 6.0 H Oxyhemoglobin 97.0 ABG O2 Sat (Calculated) 12.2 L ABG O2 Saturation 99.8 ABG Carboxyhemoglobin 2.30 ABG Methemoglobin 0.5 Giles Test YES A-a O2 Difference 137.0 Total Hemoglobin 8.8 L Lactate 1.40 Liter Flow 15.0 Blood Gas Modality VENTIMASK FiO2 % 40.0 Sodium Potassium Chloride Carbon Dioxide Anion Gap BUN Creatinine Estimated GFR/1.73 m2 BUN/Creatinine Ratio Glucose POC Glucose Calculated Osmolality Calcium Phosphorus 2.6 L Magnesium 1.8 Total Bilirubin AST ALT Alkaline Phosphatase Total Protein Albumin Globulin Albumin/Globulin Ratio 11/16/19 11/16/19 10:45 16:14 WBC RBC Hgb Hct MCV MCH MCHC RDW Std Deviation Plt Count MPV Immature Gran % (Auto) Neut % (Auto) Lymph % (Auto) [place] % (Auto) Eos % (Auto) Baso % (Auto) Immature Gran # (Auto) Neut # (Auto) Lymph # (Auto) [place] # (Auto) Eos # (Auto) Baso # (Auto) Specimen Type Sample Site pH pCO2 pO2 HCO3 Base Excess Oxyhemoglobin ABG O2 Sat (Calculated) ABG O2 Saturation ABG Carboxyhemoglobin ABG Methemoglobin Giles Test A-a O2 Difference Total Hemoglobin Lactate Liter Flow Blood Gas Modality FiO2 % Sodium Potassium Chloride Carbon Dioxide Anion Gap BUN Creatinine Estimated GFR/1.73 m2 BUN/Creatinine Ratio Glucose POC Glucose 122 H 150 H Calculated Osmolality Calcium Phosphorus Magnesium Total Bilirubin AST ALT Alkaline Phosphatase Total Protein Albumin Globulin Albumin/Globulin Ratio ASSESSMENT AND PLAN: 1. Acute on chronic respiratory failure. Continue supplemental oxygen as prescribed. 2. Pneumonia. Continue antibiotics, supplemental O2 and bronchodilators. 3. Chronic obstructive pulmonary disease. Continue bronchodilators. 4. Metastatic breast cancer. Oncology following. 5. Continue gastrointestinal prophylaxis with Protonix 40 mg IV every 12 hours scheduled. 6. Continue Phenergan as needed for nausea. Input was appreciated from admitting MD and other teams on the case.
[2019-11-16] MEDS: ZOFRAN IV PRN (21:59)
[2019-11-16] MEDS: SODIUM CHLORIDE 0.9% INJ SCH (22:02)
[2019-11-17] MEDS: SOLU-MEDROL IV SCH ×3 (03:10→18:38)
[2019-11-17] MEDS: REGLAN IV SCH ×4 (03:10→21:46)
[2019-11-17] MEDS: DUONEB (A & A) INH SCH ×6 (03:38→22:32)
[2019-11-17 06:23] LABS: ALLEN TEST YES; BE 4.4 mmoll (-3.0-3.0); BLOOD TYPE ARTERIAL; HCO3-(ACT) 28.3 mmoll (20.0-26.0); METHB 0.7 % (0.0-1.5); O2(CT) 25.2 mL/dL (15.0-23.0); O2HB 97.1 % (95.0-99.0); PO2(98.6) 117 mmHg (60-100); SAMPLE BLOOD; SAO2 99.8 % (95.0-100.0); THB 18.4 g/dL (11.5-17.4); pH(98.6) 7.38 (7.35-7.45)
[2019-11-17 06:24] LABS: MODALITY VENTIMASK; PCO2(98.6) 53 mmHg (35-45)
--- NOTE | 2019-11-17 07:40 | Diag Imaging Result Doc PS360 ---
EXAM: CHEST-PORTABLE INDICATION: dyspnea TECHNIQUE: One view COMPARISON: 11/13/2019 FINDINGS: Multifocal airspace consolidation on the right with a basilar predominance is approximately stable. No new consolidation is identified. Cardiac silhouette is stable. IMPRESSION: Stable chest. Electronically signed by Christopher Ocampo 11/17/2019 7:37 AM
[2019-11-17 08:25] LABS: BASO# 0.04 X1000 (0.0-0.2); BASO% 0.3 % (0.0-0.8); HEMATOCRIT 27.9 % (37.0-47.0); HEMOGLOBIN 8.1 g/dL (12.0-16.0); IMM GRAN# 0.29 X1000 (0.0-0.04); LYMPH# 0.96 X1000 (1.2-3.4); LYMPH% 6.5 % (20.5-51.1); MCH 26.6 PG (27-31); MCV 91.5 FL (81-99); MONO# 1.79 X1000 (0.11-0.59); MONO% 12.1 % (1.7-9.3); MPV 9.8 FL (7.4-10.4); NEUT# 11.71 X1000 (1.4-6.5); NEUT% 79.1 % (42.2-75.2); PLT 519 X1000 (130-400); RBC 3.05 XMIL (4.2-5.4); RDW 16.6 % (11.5-14.5); WBC 14.79 X1000 (4.8-10.8)
[2019-11-17] MEDS: PULMICORT INH SCH ×2 (08:26→19:40)
[2019-11-17 09:06] LABS: ALB/GLOB RATIO 1.3; ALBUMIN 3.1 g/dL (3.5-5.0); CALCIUM 9.8 mg/dL (8.8-10.2); CREATININE 1.1 mg/dL (0.5-0.9); POTASSIUM 3.8 mmol/L (3.5-5.1); TOTAL BILIRUBIN 0.7 mg/dL (0.20-1.00); TOTAL PROTEIN 5.5 g/dL (6.3-8.3)
[2019-11-17] MEDS: PROTONIX IV SCH ×2 (09:40→21:46)
[2019-11-17] MEDS: HEPARIN SUBQ SCH ×2 (09:40→21:46)
[2019-11-17] MEDS: SODIUM CHLORIDE 0.9% INJ SCH (09:41)
[2019-11-17] MEDS: CENTRUM SILVER PO SCH (09:41)
[2019-11-17] MEDS: CARAFATE PO SCH ×4 (09:41→21:47)
[2019-11-17] MEDS: FEMARA PO SCH (09:41)
[2019-11-17] MEDS: HUMULIN R SUBQ SCH ×3 (09:41→16:00)
[2019-11-17] MEDS: ZOSYN 2.25 GM in NS 50 ML IV SCH ×2 (09:42→17:13)
--- NOTE | 2019-11-17 10:43 | Extremity Venous Study ---
PROCEDURE NAME: Venous U/S Bilateral Legs - 11/09/2019 STUDY: Bilateral lower extremity venous duplex and color flow imaging study using the [employer] Vivid E9 ultrasound system with a 9 L-D transducer. REFERRING PHYSICIAN: CHINA Faulkner. IDENTIFICATION: Outpatient, 68-year-old female. FOOD DEMONSTRATOR: Yamilex Peñaloza RVT. INDICATIONS: Edema in the right lower extremity, suggestive of deep venous thrombosis. FINDINGS: The right common femoral vein and its branches, deep and superficial femoral veins were satisfactorily imaged. They had flow through them and were compressible. Right popliteal vein and deep veins below the right knee were all compressible and had flow through them. The superficial veins of the right lower extremity were compressible throughout their length. The left common femoral vein and its branches, deep and superficial femoral veins were also satisfactorily imaged. They had flow through them and were compressible. Left popliteal vein and deep veins below the left knee were all compressible and had flow through them. The superficial veins of the left lower extremity were compressible throughout their length. INTERPRETATION: No evidence of acute deep or superficial venous thrombosis of the bilateral lower extremities. cc: MD Dinora Beaulieu CRNP
[2019-11-17] MEDS: ZYVOX 600 MG/D5W 600 MG/300 ML IVPB IV SCH (11:13)
--- NOTE | 2019-11-17 12:02 | NEPHROLOGY PROGRESS NOTE ---
DATE: 11/17/2019 SUBJECTIVE: Patient resting in bed. She states that she is still vomiting bile. Indeed, she does have green bilious material. This has been vomited in the bed plan. OBJECTIVE: Vital Signs: Temperature 97.5 degrees, pulse 100, respiratory rate 20, blood pressure 125/60. Intake 640. Output 900 mL. General: Chronically ill-appearing elderly female, resting in bed. Awake and alert. She does not appear in distress. HEENT: Normocephalic, atraumatic. Oral mucosa is moist. She does have a Ventimask in place. Neck: Thick, supple. Cardiovascular: Regular, no murmur or gallop noted. Pulmonary: Decreased breath sounds. Again with Ventimask in place. No wheezes or rales. Abdomen: Obese, soft, positive bowel sounds. Genitourinary: Not inspected. Extremities: Trace to 1+ lower extremity edema. Integumentary: Skin is warm and dry. Neurologic: Nonfocal. LABORATORY DATA: Labs yesterday, WBC of 15.9, hemoglobin 8.6, sodium 146, potassium 3.6, CO2 31, creatinine 1.6 (2.3). ASSESSMENT AND PLAN: 1. Acute kidney injury. She has had some modest improvement over the weekend. Her labs today are pending. Her acute tubular necrosis likely secondary to contrast induced nephropathy. She does not have any indications for intervention other than the current treatment plan. We will sign off. rg 2. Electrolytes, acid-base balance. As of yesterday are acceptable. 3. Anemia marginal. We will defer to primary. 4. Fluid volume. She is actually in negative territory. Dictated by CHINA Lua for Manny Vazquez MD Face to face encounter, data reviewed, discussed with Nam Washington on 11/17/18. I agree with the above assessment and plan of care. cc: Manny Vazquez MD [facility]
--- NOTE | 2019-11-17 12:44 | PROGRESS NOTE ---
DATE: 11/17/2019 SUBJECTIVE: The patient seems to be breathing better, but she is still having problems eating. She is tolerating some liquid. I have started this patient on Clinimix. Kidney function seems to be getting better. Chest x-ray seems to be stabilizing, but she is still on a Ventimask. Given her current presentation, age, metastatic breast cancer to the peritoneum and probably lungs, hypoxemic respiratory failure, this patient likely will be a good candidate for hospice. Palliative Care nurse is already working on that. Dr. Gold on board as well. OBJECTIVE: Vital Signs: Temperature 98.1 degrees, pulse 99, respiratory rate 19, blood pressure 145/63, oxygen saturation 100% on a Venturi mask. HEENT: Head normocephalic. No trauma. PERRLA. Neck: Supple. No JVD. No masses. Central trachea. Chest: Decreased breath sounds globally, with prolonged expiratory phase, and some scattered expiratory wheezing. Some crepitus at the bases, and rhonchi as well. Abdomen: Soft. Some tenderness to palpation at the level of the periumbilical area and epigastric area. Extremities: There is 1+ to 2+ lower extremity edema. No clubbing. No cyanosis. Neurological: The patient is awake. She is alert. She is oriented. She does have generalized weakness. LABORATORY DATA: WBC 14.7, hemoglobin 8.1, hematocrit 27.9, platelets 519,000. Sodium 145, potassium 3.8, chloride 103, bicarbonate 29, BUN 22, creatinine 1.1, glucose 156, calcium 9.8, albumin 3.1. ASSESSMENT AND PLAN: 1. Acute on chronic hypoxemic respiratory failure. This patient was recently discharged home with oxygen. She came back with acute on chronic obstructive pulmonary disease exacerbation and possible pneumonia. She has been placed on antibiotics, breathing treatments, steroids, which I will decrease the dose a little bit today, oxygen supplementation, breathing treatment. Pulmonary Department on board. She is on a Ventimask at this moment. 2. Intractable nausea and vomiting. She seems to be better. She is tolerating some fluid, but still having some nausea. 3. Congestive heart failure. She does have some fluid on her lungs, and also acute kidney injury. Will monitor. I have started this patient on a little bit of Clinimix, around 30 mL/h since this patient is not eating. 4. Likely sepsis due to pneumonia. This patient has leukocytosis. She was tachypneic and tachycardic, plus a source of infection. 5. Pneumonia as above. 6. Left breast cancer with metastasis to the peritoneal and possible lungs. For now, we will continue with the same management. Dr. Gold on board. 7. Hypertension, stable. 8. Diabetes. Continue with the same management. 9. Constipation. She is on MiraLAX. 10. This patient is DO NOT RESUSCITATE level 1. Overall, her prognosis is poor due to her metastatic disease and multiple comorbidities. She has not been able to eat. Palliative Care on board. For now, will continue with the same treatment since this seems to be working on this patient. I will discuss with the son and the patient at the same time today at 2 p.m. for the possibility of home with hospice. She would like to go home. cc: Abram Washburn MD
--- NOTE | 2019-11-17 15:32 | PROGRESS NOTE ---
DATE: 11/17/2019 I just had a large conversation with the family members at the bedside. I was supposed to meet with the son, but as per the family, they asked me to talk without him because he knows already what is going on. I explained to them the whole situation. Mrs. Vegas actually was in the same room and she knew everything and she was asking questions as well. She has decided to go home with hospice. I will communicate this to the health care social worker so she can give them the options. Once everything is set up for her at home she can be discharged, hopefully tomorrow. Upon discharge we will try to give her most of the medications in a liquid form so she can tolerate that. ADVANCED DIRECTIVE AND PLAN: Advanced directive and plan has been discussed with the family and the patient at the bedside. It took me around 45 minutes. I will monitor this patient closely. cc: Abram Washburn MD
--- NOTE | 2019-11-17 17:07 | PROVIDER PROGRESS NOTE ---
Progress Note Dr. Luna Progress Note/Pulmonary and or critical care We appreciated progress of care, Complications, change in diagnosis, and instructions to patient. Subjective: We note the level of consciousness, bed (chair) position, family presence (if any), level of lethargy, feeling of symptoms, and changes from baseline condition/symptom. Patient is lying in bed on VM 40% with no acute distress noted. She had one episode of vomiting at an earlier time with some greenish liquid content in the basin at this time. She reports productive cough, sore throat and difficulty swallowing. Objective: Vital Signs: We reviewed EMR current values for Pulse rate, Blood pressure, Pulse rate, respiratory rate and Pulse oximetry. Also noted other values and trends if present (e.g. I/O, CVP). T 98.1, PA 99, RR 19, BP 145/63 and SaO2 100% on VM 40%. Physical Examination: General: Lying in bed with no acute distress noted. HEENT: Trachea midline. Mucosa pink and moist. Chest: Prolonged expiratory phase. Diminished breathing sounds bilaterally with prolonged expiratory phase, mild expiratory wheezing bilaterally and RLL early inspiratory crackles noted. CVS: Regular rate and rhythm with S1 and S2 appreciated. Abdomen: Semi firm with tenderness in the BUQ and epigastric area. Normoactive bowel sounds in all 4 quadrants. Extremities: BLE pitting edema 1-2+. No cyanosis. No clubbing. Neuro: A/O x4. Speech fluent. Following commands. Labs and Radiology: Reviewed available labs and radiology values available at time of EMR review. Laboratory Results 11/16/19 11/17/19 11/17/19 20:38 05:54 06:00 WBC RBC Hgb Hct MCV MCH MCHC RDW Std Deviation Plt Count MPV Immature Gran % (Auto) Neut % (Auto) Lymph % (Auto) [place] % (Auto) Eos % (Auto) Baso % (Auto) Immature Gran # (Auto) Neut # (Auto) Lymph # (Auto) [place] # (Auto) Eos # (Auto) Baso # (Auto) Specimen Type ARTERIAL Sample Site R RADIAL pH 7.38 pCO2 53 H* pO2 117 H HCO3 28.3 H Base Excess 4.4 H Oxyhemoglobin 97.1 ABG O2 Sat (Calculated) 25.2 H ABG O2 Saturation 99.8 ABG Carboxyhemoglobin 2.00 ABG Methemoglobin 0.7 Giles Test YES A-a O2 Difference 102.0 Total Hemoglobin 18.4 H Lactate 2.00 Liter Flow 15.0 Blood Gas Modality VENTIMASK FiO2 % 40.0 Sodium Potassium Chloride Carbon Dioxide Anion Gap BUN Creatinine Estimated GFR/1.73 m2 BUN/Creatinine Ratio Glucose POC Glucose 160 H 155 H Calculated Osmolality Calcium Total Bilirubin AST ALT Alkaline Phosphatase Total Protein Albumin Globulin Albumin/Globulin Ratio 11/17/19 11/17/19 11/17/19 08:00 08:00 10:14 WBC 14.79 H RBC 3.05 L Hgb 8.1 L Hct 27.9 L MCV 91.5 MCH 26.6 L MCHC 29.0 L RDW Std Deviation 16.6 H Plt Count 519 H MPV 9.8 Immature Gran % (Auto) 2.0 H Neut % (Auto) 79.1 H Lymph % (Auto) 6.5 L [place] % (Auto) 12.1 H Eos % (Auto) 0.0 Baso % (Auto) 0.3 Immature Gran # (Auto) 0.29 H Neut # (Auto) 11.71 H Lymph # (Auto) 0.96 L [place] # (Auto) 1.79 H Eos # (Auto) 0.00 Baso # (Auto) 0.04 Specimen Type Sample Site pH pCO2 pO2 HCO3 Base Excess Oxyhemoglobin ABG O2 Sat (Calculated) ABG O2 Saturation ABG Carboxyhemoglobin ABG Methemoglobin Giles Test A-a O2 Difference Total Hemoglobin Lactate Liter Flow Blood Gas Modality FiO2 % Sodium 145 Potassium 3.8 Chloride 103 Carbon Dioxide 29 Anion Gap 13 BUN 22 Creatinine 1.1 H Estimated GFR/1.73 m2 60 BUN/Creatinine Ratio 20 Glucose 156 H POC Glucose 119 H Calculated Osmolality 295 Calcium 9.8 Total Bilirubin 0.70 AST 17 ALT 23 Alkaline Phosphatase 191 H Total Protein 5.5 L Albumin 3.1 L Globulin 2.4 Albumin/Globulin Ratio 1.3 Assessment: DNR 1. Acute on chronic hypoxemic respiratory failure. Possible pneumonia with trace pleural effusions and minimal adjacent atelectasis. R/O pulmonary embolism by CTPA on 11/09/19. CXR today show stable chest with multifocal airspace consolidation on the right with a basilar predominance. COPD exacerbation. Breast cancer metastatic to the peritoneal and possible lungs with intractable nausea and vomiting. Dr. Gold on board. Congestive heart failure. KANNAN. Improving. Plan: Continue current treatment and supportive care per admitting and other teams on the case. Supplemental oxygen titrated to patients needs per clinical protocol. Antibiotic (Zosyn and Zyvox). Bronchodilators and IV Solu-Medrol. GI and DVT prophylaxis. Input was appreciated from Admitting MD and other teams on the case.
[2019-11-17] MEDS: CLINIMIX E 4.25%-5% SOLUTION 1,000 ML IV SCH (17:20)
[2019-11-18] MEDS: ZOSYN 2.25 GM in NS 50 ML IV SCH ×2 (00:41→09:26)
[2019-11-18] MEDS: ZYVOX 600 MG/D5W 600 MG/300 ML IVPB IV SCH ×2 (01:41→12:01)
[2019-11-18] MEDS: SOLU-MEDROL IV SCH ×2 (01:41→09:28)
[2019-11-18] MEDS: HUMULIN R SUBQ SCH ×3 (03:41→11:59)
[2019-11-18] MEDS: REGLAN IV SCH ×3 (03:42→15:20)
[2019-11-18] MEDS: DUONEB (A & A) INH SCH ×4 (03:44→16:00)
[2019-11-18] MEDS: PULMICORT INH SCH (08:30)
[2019-11-18 08:51] LABS: BASO# 0.05 X1000 (0.0-0.2); BASO% 0.3 % (0.0-0.8); EOS# 0.01 X1000 (0.0-0.7); EOS% 0.1 % (0.0-10.0); IMM GRAN# 0.38 X1000 (0.0-0.04); IMM GRAN% 2.3 % (0.0-0.5); LYMPH# 0.91 X1000 (1.2-3.4); LYMPH% 5.6 % (20.5-51.1); MCH 26.2 PG (27-31); MCHC 28.6 g/dL (33-37); MCV 91.8 FL (81-99); MONO# 1.59 X1000 (0.11-0.59); MONO% 9.8 % (1.7-9.3); MPV 9.6 FL (7.4-10.4); NEUT# 13.27 X1000 (1.4-6.5); NEUT% 81.9 % (42.2-75.2); PLT 497 X1000 (130-400); RBC 3.05 XMIL (4.2-5.4); RDW 16.3 % (11.5-14.5); WBC 16.21 X1000 (4.8-10.8)
[2019-11-18 09:16] LABS: AGAP 12; BUN 18 mg/dL (8-22); CALCIUM 9.8 mg/dL (8.8-10.2); CHLORIDE 104 mmol/L (98-107); COSMO 295; ESTIMATED GFR > 60; GLUCOSE 151 mg/dL (70-104); POTASSIUM 3.7 mmol/L (3.5-5.1); SODIUM 146 mmol/L (136-145); TCO2 30 mmol/L (25-35)
[2019-11-18] MEDS: PROTONIX IV SCH (09:28)
[2019-11-18] MEDS: HEPARIN SUBQ SCH (09:28)
[2019-11-18] MEDS: PHENERGAN IV PRN (09:35)
[2019-11-18] MEDS: CLINIMIX E 4.25%-5% SOLUTION 1,000 ML IV SCH ×2 (09:36→12:00)
[2019-11-18] MEDS: SODIUM CHLORIDE 0.9% INJ SCH (09:36)
[2019-11-18] MEDS: SODIUM CHLORIDE 0.9% INJ PRN (09:36)
[2019-11-18] MEDS ORDERED: MYLICON PO PRN (09:51)
[2019-11-18 11:38] LABS: ALLEN TEST YES; BE 7.3 mmoll (-3.0-3.0); BLOOD TYPE ARTERIAL; HCO3-(ACT) 30.6 mmoll (20.0-26.0); METHB 0.9 % (0.0-1.5); O2(CT) 11.8 mL/dL (15.0-23.0); O2HB 97.1 % (95.0-99.0); PO2(98.6) 117 mmHg (60-100); SAMPLE BLOOD; SAO2 99.8 % (95.0-100.0); THB 8.5 g/dL (11.5-17.4); pH(98.6) 7.39 (7.35-7.45)
[2019-11-18 11:39] LABS: MODALITY VENTIMASK; PCO2(98.6) 55 mmHg (35-45)
[2019-11-18] MEDS: CARAFATE PO SCH ×2 (11:57→13:51)
[2019-11-18] MEDS: CENTRUM SILVER PO SCH (12:00)
[2019-11-18] MEDS: FEMARA PO SCH (12:00)
--- NOTE | 2019-11-18 13:27 | DISCHARGE SUMMARY ---
ADMISSION DATE: 11/09/2019 DISCHARGE DATE: HISTORY: She uses the [facility]. She presented with shortness of breath. She is followed by her oncologist Dr. Vale Gold. She has shortness of breath, and complained of shortness of breath and green emesis and severe reflux. 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 She states that since her discharge on the continues to have severe reflux and shortness of breath. However, shortness of breath was worse the night before she came. She states that she has not had any fevers. She has not coughed up any colors. However, she states she has continues gastric reflux, worsening at night with spells of diarrhea. She was breathing about 55 times admitted on 4 L nasal cannula, and seemed to be gasping for air. I placed her on a BiPAP in the EMS, but once she received breathing treatments, breathing easier, and downgraded her nasal cannula currently. She was tolerating nasal cannula and complained of left-sided abdominal pain. On discharge, she was sent home with some Omnicef 300 [place] [address]. When she left on the , it was only 5000. Pulmonary arteriogram was performed on arrival here because of elevated D-dimer, there was no pulmonary emboli, and the nodular metastatic edema is essentially stable as consistent with known peritoneal carcinomatosis, and stable left breast mass. She has seen Dr. Quinn on the , and was scoped by Dr. Cuevas on the . They did an EGD with biopsy. The biopsy of esophagus showed there was esophagitis, lower third of the esophagus, class D involving 75% of the esophageal circumference. Stomach had some linear erosions found in the gastric antrum. The duodenum was normal. However, she was still having pretty significant reflux despite Carafate and Protonix at a high dose twice a day. PAST MEDICAL HISTORY: Reviewed again: 1. Esophagitis. 2. Severe gastroesophageal reflux disease. 3. History of congestive heart failure. 4. Hypertension. 5. COPD. 6. Diabetes mellitus type 2. 7. Diabetic neuropathy. 8. Left breast cancer with metastasis to the peritoneum. PAST SURGICAL HISTORY: 1. Bilateral tubal ligation. 2. Appendectomy. 3. Ultrasound-guided biopsy left breast lesion. 4. Most recent EGD. ADMISSION DIAGNOSES: 1. Dyspnea. 2. Chronic obstructive pulmonary disease exacerbation. 3. Hypoxemic respiratory failure requiring oxygen nebulizer, steroids and antibiotics were added for possible pneumonitis. 4. Leukocytosis, which could be secondary to pneumonia. Urinalysis was unremarkable. 5. Possible sepsis, treating her as possibility. 6. Congestive heart failure without any acute exacerbation. 7. Hypertension. Follow her blood pressures. 8. Diabetes mellitus type 2. 9. Complaints of severe gastroesophageal reflux. Continue her high-dose proton pump inhibitor. 10. Diabetes mellitus type 2. 11. Left breast cancer with metastasis to the peritoneum. PLAN: She had a lower extremity venous study done bilateral. No evidence of acute deep or superficial venous thrombosis of the bilateral lower extremities. She had a pulmonary arteriogram done on 11/09/2019 with trace pleural effusions at the bases with minimal adjacent atelectasis. No evidence of pulmonary embolism. Nodular metastatic edema that essentially is stable consistent with known peritoneal carcinomatosis, and stable left breast mass. Hematology, Dr. Vale Carrillo, consulted for metastatic breast cancer. Plan was for the patient to start Ibrance and Femara as an outpatient, but she has been unable to have any due to multiple hospitalizations. She does not seem well enough to begin Ibrance so going to go ahead and start the Femara. The patient was agreeable. For her acute on chronic respiratory failure, continue to manage with IV antibiotics, O2, and bronchodilators. Chronic obstructive pulmonary disease with acute exacerbation. Leukocytosis aware, and then treated her for potential sepsis. Chest x-ray on 11/13/2019, severe worsening of multifocal infiltrates throughout the right lung, highly concerning for pneumonia. Nephrology was consulted on 11/14/2019. Acute kidney injury. Baseline creatinine 1.1. Acute tubular necrosis was suspected secondary to contrast induced nephropathy. Creatinine has improved with some fluids. I had a long conversation with Dr. Rodríguez and Dr. Vale Carrillo, and talked about situation. I think they wanted to go home with hospice care and so trying to set that up with her O2. She has acute on chronic hypoxemic respiratory failure, recently discharged home with oxygen. She came back with COPD exacerbation, possible pneumonia, and placed on antibiotics. She had some intractable nausea, vomiting, tolerating fluids, and congestive heart failure. She does have some fluid in her lungs. Also, acute kidney injury. 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 The patient wanted a do not resuscitate level 1. Prognosis is poor. Multiple comorbidities. She talked to her son and family, and they want to go home with hospice care so we will set her up for discharge. Her home medications, I think we are trying to get her supplementary oxygen for home. She has Pulmicort 0.5 mg b.i.d., Thendara 7.5 mg q.6 hours which she takes for pain now. She was on Zyvox 600 mg q.12, Zosyn 2.25 g IV q.8. MiraLAX 17 g p.o. daily p.r.n., Mylicon 80 mg p.o. p.r.n., Carafate 1 g 4 times a day, and Protonix will be 40 mg p.o. twice a day. cc: Giles Way MD
--- NOTE | 2019-11-18 13:31 | DISCHARGE SUMMARY ---
ADMISSION DATE: 11/09/2019 DISCHARGE DATE: ADDENDUM: Ms. Vegas apparently has not been swallowing the Femora and not getting any treatment, and so is going home with hospice. We will double check and make sure Dr. Gold is in agreement with this, but we will get her set up to go home. Her list of medications will be largely up to what will make her comfortable with hospice care. cc: Giles Way MD
[2019-11-18 14:40] VITALS: BP 149/69
--- NOTE | 2019-11-18 18:16 | PROVIDER PROGRESS NOTE ---
Progress Note Dr. Luna Progress Note/Pulmonary and or critical care Subjective: Patient is lying in bed on VM 40% with no acute distress noted. She is waiting to be discharged home with hospice. She appears tired. She reports no pain. She has no complaint at this time. Objective: Vital Signs: T 98.1, ME 116, RR 22, BP 149/69 and SaO2 99% on VM 40%. Physical Examination: General: Lying in bed with no acute distress noted. HEENT: Trachea midline. Mucosa pink and moist. Chest: Prolonged expiratory phase. Diminished breathing sounds bilaterally with prolonged expiratory phase and RLL early inspiratory crackles noted. CVS: Regular rate and rhythm with S1 and S2 appreciated. Abdomen: Semi firm with tenderness in the BUQ and epigastric area. Normoactive bowel sounds in all 4 quadrants. Extremities: BLE pitting edema 1-2+. No cyanosis. No clubbing. Neuro: A/O x4. Speech fluent. Following commands. Labs and Radiology: Laboratory Results 11/17/19 11/18/19 11/18/19 19:28 05:21 08:11 WBC RBC Hgb Hct MCV MCH MCHC RDW Std Deviation Plt Count MPV Immature Gran % (Auto) Neut % (Auto) Lymph % (Auto) [place] % (Auto) Eos % (Auto) Baso % (Auto) Immature Gran # (Auto) Neut # (Auto) Lymph # (Auto) [place] # (Auto) Eos # (Auto) Baso # (Auto) Specimen Type Sample Site pH pCO2 pO2 HCO3 Base Excess Oxyhemoglobin ABG O2 Sat (Calculated) ABG O2 Saturation ABG Carboxyhemoglobin ABG Methemoglobin Giles Test A-a O2 Difference Total Hemoglobin Lactate Liter Flow Blood Gas Modality FiO2 % Sodium 146 H Potassium 3.7 Chloride 104 Carbon Dioxide 30 Anion Gap 12 BUN 18 Creatinine 1.0 H Estimated GFR/1.73 m2 > 60 BUN/Creatinine Ratio 18 Glucose 151 H POC Glucose 166 H 181 H Calculated Osmolality 295 Calcium 9.8 11/18/19 11/18/19 11/18/19 08:11 11:35 11:40 WBC 16.21 H RBC 3.05 L Hgb 8.0 L Hct 28.0 L MCV 91.8 MCH 26.2 L MCHC 28.6 L RDW Std Deviation 16.3 H Plt Count 497 H MPV 9.6 Immature Gran % (Auto) 2.3 H Neut % (Auto) 81.9 H Lymph % (Auto) 5.6 L [place] % (Auto) 9.8 H Eos % (Auto) 0.1 Baso % (Auto) 0.3 Immature Gran # (Auto) 0.38 H Neut # (Auto) 13.27 H Lymph # (Auto) 0.91 L [place] # (Auto) 1.59 H Eos # (Auto) 0.01 Baso # (Auto) 0.05 Specimen Type ARTERIAL Sample Site R RADIAL pH 7.39 pCO2 55 H* pO2 117 H HCO3 30.6 H Base Excess 7.3 H Oxyhemoglobin 97.1 ABG O2 Sat (Calculated) 11.8 L ABG O2 Saturation 99.8 ABG Carboxyhemoglobin 1.80 ABG Methemoglobin 0.9 Giles Test YES A-a O2 Difference 99.0 Total Hemoglobin 8.5 L Lactate 1.40 Liter Flow 15.0 Blood Gas Modality VENTIMASK FiO2 % 40.0 Sodium Potassium Chloride Carbon Dioxide Anion Gap BUN Creatinine Estimated GFR/1.73 m2 BUN/Creatinine Ratio Glucose POC Glucose 159 H Calculated Osmolality Calcium Assessment: DNR 1. Acute on chronic hypoxemic respiratory failure. Possible pneumonia with trace pleural effusions and minimal adjacent atelectasis. R/O pulmonary embolism by CTPA on 11/09/19. CXR today show stable chest with multifocal airspace consolidation on the right with a basilar predominance. COPD exacerbation. Breast cancer metastatic to the peritoneal and possible lungs with intractable n ausea and vomiting. Dr. Gold on board. Congestive heart failure. KANNAN. Improving. Plan: Continue current treatment and supportive care per admitting and other teams on the case. Supplemental oxygen titrated to patients needs per clinical protocol. Antibiotic (Zosyn and Zyvox). Bronchodilators and IV Solu-Medrol. GI and DVT prophylaxis. Schedule to discharge home today with hospice per Admitting physician.
== END 2019-11-18 18:04 | disposition hospice, home (50) | DRG 871 ==
LOC: ED 05:49 → SUATTDRO 12:07 → EDIPHOLD 12:07 → 3N 11-10 12:13
PROVIDERS: ATTEND Emergency Medicine